=== PATIENT | female | born 1945 | race Caucasian/White ===

== ENCOUNTER 2019-01-19 06:59 | Day surgery (SDC) | payer OTHER ==
--- NOTE | 2019-01-18 10:37 | RAD REPORT ---
EXAM DESCRIPTION: RAD - Chest Pa And Lat (2 Views) - 01/18/2019 10:30 am CLINICAL HISTORY: preop Chest pain. COMPARISON: Chest Single View dated 08/09/2017; CHEST PA AND LAT 2 VIEW dated 12/03/2009; CHEST PA AND LAT 2 VIEW dated 05/02/2009; CHEST PA AND LAT 2 VIEW dated 01/29/2000 FINDINGS: The lungs are clear. The heart is normal in size. No displaced fractures. IMPRESSION: No acute or concerning finding suspected.
[2019-01-18 10:41] LABS: Basophils % 0.8 % (0-1.3); Eosinophils % 2.4 % (0-4.4); Hematocrit 40.5 % (36.0-45.0); Lymphocytes % 29.9 % (15.3-44.8); Monocytes % 7.8 % (3.3-12.3)
[2019-01-18 10:47] LABS: Potassium 3.9 mmol/L (3.5-5.1)
[2019-01-19] MEDS ORDERED: BUPIVACAINE 0.5% PF 10 ML VIAL ONE (07:19)
[2019-01-19] MEDS ORDERED: NA CHLORIDE 0.9% 1,000 ML ONE (07:29)
[2019-01-19] MEDS ORDERED: CEFAZOLIN/SWI 1gm 1 GM/10 ML SYR ONE (07:29)
[2019-01-19] MEDS ORDERED: METHYLENE BLUE 0.5% 10 ML AMP ONE (07:34)
[2019-01-19] MEDS ORDERED: PROPOFOL 200 MG/20 ML VIAL IV ONE (07:43)
[2019-01-19] MEDS ORDERED: FENTANYL CITR 100 MCG/2 ML ONE (07:44)
[2019-01-19] MEDS ORDERED: MIDAZOLAM HCL 2 MG/2 ML INJ ONE (07:44)
[2019-01-19] MEDS ORDERED: LIDOCAINE 2% MPF 5 ML VIAL ONE (07:44)
[2019-01-19] MEDS ORDERED: ONDANSETRON 4 MG/2 ML VIAL ONE (07:45)
--- NOTE | 2019-01-19 08:43 | P.BOP ---
Preoperative diagnosis: left breast mass Postoperative diagnosis: same Primary procedure: Left breast lumpectomy Pocket Setter: YASMANY SOTO Estimated blood loss: <10cc Specimen: mass Findings: palpable left breast mass Anesthesia: General Complications: None Transferred to: Recovery Room Condition: Good
[2019-01-19 09:42] VITALS: TEMP 96.8
[2019-01-19 10:06] VITALS: BP 109/48; O2SAT 97
--- NOTE | 2019-01-19 23:07 | DS ---
Date of Discharge: 01/19/2019 Diagnosis: Left breast mass. Procedure: Left breast lumpectomy. Disposition: Home. Activity: As tolerated. No heavy lifting. Followup: Follow up in my office in 1 week. Call for appointment [phone]. Keep area dry for 48 ho urs, then may shower. Keep Steri-Strips intact. Use breast support. Medications: Ultracet q.4 hours p.r.n. pain and Bactrim DS p.o. b.i.d. ARAM/ROMEO Voice ID: [id number] Report ID: [id number]
--- NOTE | 2019-01-19 23:07 | OP ---
Date of Procedure: 01/19/2019 Surgeon: Raphael Garcia MD Counterintelligence Agent: Katie Whaley. Preoperative Diagnosis: Left breast mass. Postoperative Diagnosis: Left breast mass. Procedure: Left breast lumpectomy. Anesthesia: General plus local. Indications: This is the case of a 73-year-old patient, comes to us with a palpable tender left caleb st mass. The benefits, alternatives, and risks of excision fully explained which include but are not limited to infection, bleeding, damage to adjacent structures, anesthesia complication, nonhealing w ound, DC, and even . She also understands this may not relieve the symptoms, she might need mor e than one surgical intervention. She was advised once again, the frequent examination, frequent pankaj mograms, and also followup for the biopsy in our office. She understood and signed a consent. The a anny of concern was marked by me and the patient in the holding room. Description Of Procedure: The patient was brought to the operating room, placed in supine position. Anesthesia was done without complication. Breast was prepped and draped in a sterile fashion. A ti me-out was called. A wedge incision was made in the skin to include part of the skin and then all th e way down to breast tissue. Mass was removed. The area was irrigated. Hemostasis obtained. Then, we closed this with a chromic and PDS. Steri-Strip placed over the area. Sponge count and instrume nt counts were correct. The patient tolerated the procedure well. The patient was sent to recovery in stable condition. ARAM/ROMEO Voice ID: [id number] Report ID: [id number]
== END 2019-01-19 10:09 | disposition home or self-care (01) ==
LOC: OR 06:59
PROVIDERS: ATTEND Surgery
PROC: 0HBU0ZZ Excision of Left Breast, Open Approach (ICD-10-PCS; principal; 2019-01-19 08:15)
DX: N60.02 Solitary cyst of left breast (principal); E11.9 Type 2 diabetes mellitus without complications; I10 Essential (primary) hypertension; I25.2 Old myocardial infarction; Z79.84 Long term (current) use of oral hypoglycemic drugs; Z79.82 Long term (current) use of aspirin; Z79.899 Other long term (current) drug therapy
CPT/HCPCS: 19120; 85025; 80048; 36415; 82962 ×2; 88304; 71046; J2704; J2250; J3010; J0690; J7030; J2405; 88305

== ENCOUNTER → 2019-04-19 | Day surgery (SDC) | payer OTHER ==
--- NOTE | 2019-04-19 11:54 | RAD REPORT ---
EXAM DESCRIPTION: US - Follow Up [facility] - 04/19/2019 10:12 am CLINICAL HISTORY: Abnormal ultrasound, small mass periareolar left breast pending biopsy COMPARISON: Sonography study March 31, 2019, mammogram March 10, 2019 FINDINGS: The patient presented for ultrasound-guided biopsy of a 4 mm nodular focus in the periareo lar left breast detailed on the March 31 examination. Preliminary imaging for today's procedure pe rformed by both the technologist and the interpreting radiologist failed to identify a clear correlat e matching the March 31 study. The patient has several cysts in the left breast and prominent duct s in the periareolar region. On today's examination no mass was identified that was felt to be suffic iently worrisome to warrant biopsy at this time. Rather than risk possible false-negative procedure, the biopsy was canceled. Today's findings were di scussed at length with the patient. Recommendation would be to undergo mammography and sonography in 6 months to re-evaluate the left breast findings. The patient was in agreement with this recommendati on. IMPRESSION: 1. Left breast biopsy procedure was canceled. On today's sonographic evaluation, the are a of concern detailed March 31 could not be reproduced and no other suspicious finding could be id entified. 2. Recommendation for the patient would be to undergo diagnostic mammography and sonography of the le ft breast in 6 months. BI-RAD: Category 3 probably benign six-month follow-up ResultCode: PB6
== END | disposition home or self-care (01) ==
LOC: DS 09:20
PROVIDERS: ATTEND Surgery
DX: N63.21 Unspecified lump in the left breast, upper outer quadrant (principal); Z53.9 Procedure and treatment not carried out, unspecified reason
CPT/HCPCS: 76642

== ENCOUNTER 2020-03-27 09:21 | Emergency (ER) | payer OTHER ==
--- OUTSIDE RECORDS SUMMARY | 2020-03-27 10:11 | XMS REPORT | Continuity of Care Document ---
:1945 Author Organization [facility] Address [address] [place] [address] [address] [place] [address] Care Team Providers Name Role Phone Unavailable Unavailable Unavailable Problems This patient has no known problems. Allergies, Adverse Reactions, Alerts This patient has no known allergies or adverse reactions. Social History Smoking Status Start Date Stop Date Source Never Smoker [facility] Medications Ordered Filled Start Stop Current Ordering Indication Dosage Frequency Signature Comments Components Source Medication Medication Date Date Medication? Clinician (SIG) Name Name clopidogrel clopidogrel No clopidogre [facility] 75 mg 75 mg l 75 mg da tablet tablet tablet Medical Group fluticasone fluticasone No fluticason [facility] propionate propionate e da 50 50 propionate Medical mcg/actuati mcg/actuati 50 G roup on nasal on nasal mcg/actuat spray,suspe spray,suspe ion nasal nsion nsion spray,susp ension Fluzone Fluzone No Fluzone [facility] High-Dose High-Dose High-Dose da 2017-2018 Medical (PF) 180 (PF) 180 (PF) 180 Migue up mcg/0.5 mL mcg/0.5 mL mcg/0.5 mL intramuscul intramuscul intramuscu ar syringe ar syringe lar syringe Fluzone Fluzone No Fluzone [facility] High-Dose High-Dose High-Dose da Medica l (PF) 180 (PF) 180 (PF) 180 Migue up mcg/0.5 mL mcg/0.5 mL mcg/0.5 mL intramuscul intramuscul intramuscu ar syringe ar syringe lar syringe folic acid folic acid No 1 Q1D folic acid [facility] 400 mcg 400 mcg 400 mcg da tablet Take tablet Take tablet Medical 1 tablet 1 tablet Take 1 Group every day every day tablet by oral by oral every day route. route. by oral route. glimepiride glimepiride No glimepirid [facility] 1 mg tablet 1 mg tablet e 1 mg da tablet Medical Group iron 28 iron 28 No iron 28 [facility] mg-Take 1 mg-Take 1 mg-Take 1 da tablet PO tablet PO tablet PO Medical BID daily BID daily BID daily Group Janumet XR Janumet XR No Janumet XR [facility] 100 100 100 da mg-1,000 mg mg-1,000 mg mg-1,000 Medical tablet,exte tablet,exte mg G roup nded nded tablet,ext release release ended release Jardiance Jardiance No Jardiance [facility] 25 mg 25 mg 25 mg da tablet tablet tablet Medical Group L-Lysine L-Lysine No L-Lysine [facility] 500 mg 500 mg 500 mg da tablet Take tablet Take tablet Medical 1 tablet PO 1 tablet PO Take 1 Group 3 times a 3 times a tablet PO week week 3 times a week levothyroxi levothyroxi No levothyrox [facility] ne 125 mcg ne 125 mcg ine 125 da tablet tablet mcg tablet Medic al Group lorazepam lorazepam No 1 BID lorazepam [facility] 0.5 mg 0.5 mg 0.5 mg da tablet Take tablet Take tablet Medical 1 tablet 1 tablet Take 1 Group twice a day twice a day tablet by oral by oral twice a route for route for day by 14 days. 14 days. oral route for 14 days. metoprolol metoprolol No metoprolol [facility] succinate succinate succinate da ER 50 mg ER 50 mg ER 50 mg Med ical tablet,exte tablet,exte tablet,ext Group nded nded ended release 24 release 24 release 24 hr hr hr niacin 500 niacin 500 No 1 Q1D niacin 500 [facility] mg tablet mg tablet mg tablet da Take 1 Take 1 Take 1 Medical tablet tablet tablet Group every day every day every day by oral by oral by oral route. route. route. pantoprazol pantoprazol No pantoprazo [facility] e 20 mg e 20 mg le 20 mg da tablet,bria tablet,bria tablet,del Medical yed release yed release ayed G roup release ramipril 10 ramipril 10 No ramipril [facility] mg capsule mg capsule 10 mg da capsule Medical Group repaglinide repaglinide No repaglinid [facility] 2 mg tablet 2 mg tablet e 2 mg da tablet Medical Group Restasis Restasis No Restasis [facility] 0.05 % eye 0.05 % eye 0.05 % eye da drops in a drops in a drops in a Medical dropperette dropperette dropperett Group e rosuvastati rosuvastati No rosuvastat [facility] n 40 mg n 40 mg in 40 mg da tablet tablet tablet Medical Group Super B Super B No Super B [facility] Complex-Vit Complex-Vit Complex-Vi da lares C take lares C take tamin C Medical 1 tablet PO 1 tablet PO take 1 Group daily daily tablet PO daily Vital Signs Vital Name Observation Time Observation Value Comments Source BP Diastolic 2019-05-26 00:00:00 73 [facility]Hg[facility] Height 2019-05-26 00:00:00 67 [in_i] [facility] BMI (Body Mass 2019-05-26 00:00:00 24.5 kg/m2 [facility]) Group BP Systolic 2019-05-26 00:00:00 160 mm[Hg] [facility] Body Weight 2019-05-26 00:00:00 156.6 [facility]lb_av[facility] Procedures Procedure Date / Time Performing Clinician Source Performed TYMPANOMETRY 2019-05-26 00:00:00 [facility] Pl[facility] of Stent [facility] Procedure on Back [facility] U[facility] Ch[facility]cyst[facility] Thyroidectomy [facility] Plan of Care Planned Activity Planned Date Details Comments Source Instructions [facility] Encounters Start End Encounter Admission Attending Care Care Encounter Source Date/Time Date/Time Type Type Clinicians Facility Department ID 2019-05-26 2019-05-26 Valarie SCOTT [place] - [id number] [facility] 00:00:00 00:00:00 MD Saul: [address] Group [facility] - [address], Otolaryngol [place], [facility] [place] [address] , Ph. Results Test Description Test Time Test Comments Results Result Comments Source tympanogram 2019-05-26 14:04:56 Test Item Value Reference Range Interpretation Comme nts Right (test code = Right) Type C Peak is on Left Left (test code = Left) Type C Peak is on Left [facility]
[2020-03-27 10:29] LABS: Absolute Lymphocytes (CBC) 2.6 K/uL (0.7-4.9); Basophils % 0.4 % (0-1.3); Hematocrit 41.9 % (36.0-45.0); Lymphocytes % 29.3 % (15.3-44.8); MPV 10.6 fL (7.6-11.3); RBC Red Blood Cell Count 4.94 M/uL (3.86-4.86)
[2020-03-27 10:37] LABS: Albumin 3.5 g/dL (3.4-5.0); Bilirubin Direct 0.1 mg/dL (0-0.2); Bilirubin Total 0.4 mg/dL (0.2-1.0); Protein, Total 7.5 g/dL (6.4-8.2); Troponin (Emerg Dept Use Only) 0.04 ng/mL (0.0-0.045)
[2020-03-27] MEDS ORDERED: NA CHLORIDE 0.9% 500 ML ONE (10:43)
--- NOTE | 2020-03-27 11:21 | RAD REPORT ---
EXAM DESCRIPTION: CT - Abdomen Pelvis W Contrast - 03/27/2020 11:08 am CLINICAL HISTORY: left sided abdominal pain COMPARISON: No comparisons TECHNIQUE: Biphasic, helical CT imaging of the abdomen and pelvis was performed following 100 ml non -ionic IV contrast. No oral contrast administered. All CT scans are performed using dose optimization technique as appropriate and may include automated exposure control or mA/KV adjustment according to patient size. FINDINGS: Lung pro are detailed in separate report. The liver, spleen, and pancreas show no suspicious findings. Cholecystectomy clips are present. Bilia ry tree within normal limits. Benign-appearing cysts are seen in the hepatic parenchyma. No worrisome hepatic parenchymal process. Symmetric renal function is seen with no hydronephrosis or suspicious renal mass. No pyelonephritis o r acute parenchymal process. Small renal cysts are present. No obstructing or nonobstructing calculi. Partially filled urinary bladder shows no suspicious findings. No adrenal abnormalities. Uterus is absent. Ovaries are absent or atrophic. Patient has significant pelvic floor laxity. Minima l stranding is seen adjacent to the tissues of the perineum around the distal most rectum. In the set ting of pelvic floor laxity or prolapse, CT imaging in this region is limited. No gastric dilatation or wall thickening. Moderate stool volume throughout most of the colon. Rare di verticula seen. No active colon process identifiable. No free air, free fluid or inflammatory strand ing. No significant hernia, mass or bulky lymphadenopathy. Patient has a very small incidental umbil ical fat only hernia. Bony degenerative changes are present most notable at the L5-S1 disc level. No acute or destructive f inding. IMPRESSION: No mass or other emergent CT abdomen or pelvis finding. Patient has pelvic floor laxity. There is some stranding along the perineum and perianal region. CT i maging in this region is limited in the setting of laxity.
--- NOTE | 2020-03-27 11:23 | RAD REPORT ---
EXAM DESCRIPTION: CT - Chest For Pe Angio - 03/27/2020 11:08 am CLINICAL HISTORY: syncope, chest pain, abdominal pain COMPARISON: No comparisons TECHNIQUE: Dynamically enhanced 3 mm thick images of the chest were obtained during administration o f approximately 150mL Isovue 370 IV contrast. Coronal and oblique MIP reconstruction images were gene rated and reviewed. Exam utilizes a protocol to evaluate the pulmonary arterial tree. All CT scans are performed using dose optimization technique as appropriate and may include automated exposure control or mA/KV adjustment according to patient size. FINDINGS: No pulmonary emboli are identified. The aorta as imaged shows no acute or suspicious finding. No pericardial thickening or effusion. No focal mass or consolidation. Minimal atelectasis changes are present along the posterior aspects o f each lung field. No convincing evidence for an acute infiltrative process. No pleural effusion or p leural thickening. No mediastinal or hilar suspicious masses. No chest wall masses or abnormal axillary lymphadenopathy. Mild thoracic spine degenerative change present. No acute or destructive component. IMPRESSION: No pulmonary emboli identified. No other significant or suspicious findings.
[2020-03-27] MEDS ORDERED: NA CHLORIDE 0.9% 250 ML ONE (12:13)
[2020-03-27 13:02] LABS: Urine Blood TRACE (NEG); Urine Glucose 2+ (NEG); Urine Protein 1+ (NEG); Urine pH 5.5 (5.0-7.0)
--- NOTE | 2020-03-27 13:25 | ER ---
Nurse's Notes [facility] Name: Sherice Ward Age: 74 yrs Sex: Female : 1945 Arrival Date: 03/27/2020 Time: 09:24 Bed 8 Private MD: Diagnosis: Lower abdominal pain, unspecified;Syncope and collapse Presentation: 03/27 09:30 Chief complaint: Patient states: lower abd pain that began 2 months ago. Pt states "my aa5 abdomen hurts more when I try to have a bowel movement". Pt reports last BM was yesterday after enema. Pt denies nausea/vomiting. Pt states "I passed out from the pain on Thursday and since then I've been lightheaded". 09:30 Coronavirus screen: Client denies travel out of the [place] in the last 14 days. At this aa5 time, the client does not indicate any symptoms associated with coronavirus-19. Ebola Screen: Patient negative for fever greater than or equal to 101.5 degrees Fahrenheit, and additional compatible Ebola Virus Disease symptoms. Initial Sepsis Screen: Does the patient meet any 2 criteria? No. Patient's initial sepsis screen is negative. Does the patient have a suspected source of infection? No. Patient's initial sepsis screen is negative. Risk Assessment: Do you want to hurt yourself or someone else? Patient reports no desire to harm self or others. Onset of symptoms was February 2020. 09:30 Acuity: SHELBY 3 aa5 09:30 Method Of Arrival: Ambulatory aa5 Historical: - Allergies: 09:30 Codeine; aa5 - PMHx: 09:30 Diabetes - NIDDM; High Cholesterol; Hypertension; Hypothyroidism; Myocardial infarction;aa5 - PSHx: 09:30 Heart stents; Cholecystectomy; aa5 - Immunization history:: Adult Immunizations unknown. - Social history:: Smoking status: Patient denies any tobacco usage or history of. Screenin:03 Abuse screen: Denies threats or abuse. Denies injuries from another. Nutritional bp screening: No deficits noted. Tuberculosis screening: No symptoms or risk factors identified. Fall Risk None identified. Assessment: 09:35 General: Appears in no apparent distress. Behavior is calm, cooperative. Pain: rb1 Complains of pain in abdomen Pain began 1 day ago. Aggravated by having a bowel movement. Neuro: Level of Consciousness is awake, alert, obeys commands, Oriented to person, place, time, situation, Reports dizziness, a syncopal episode syncope on Thursday . Cardiovascular: Capillary refill < 3 seconds. Respiratory: Airway is patent Respiratory effort is even, unlabored, Respiratory pattern is regular, symmetrical. GI: Bowel sounds present X 4 quads. Reports last bowel movement was yesterday Patient currently denies nausea, vomiting. : No signs and/or symptoms were reported regarding the genitourinary system. Derm: Skin is pink, warm \\T\\ dry. 10:30 Reassessment: Pt. reported dizziness upon position change during orthostatic blood rb1 pressure. Reports taking Ramipril 10 mg 1 tab at 0745 this morning. She reports that she takes the Ramipril 10 mg 1 tab twice a day. 11:30 Reassessment: Patient appears in no apparent distress at this time. No changes from rb1 previously documented assessment. 12:06 Reassessment: Patient appears in no apparent distress at this time. Patient and/or rb1 family updated on plan of care and expected duration. Pain level reassessed. Patient is alert, oriented x 3, equal unlabored respirations, skin warm/dry/pink. 13:06 Reassessment: Ambulated pt. around pod 1 and back to her room, gait was steady. Pt. rb1 reports that she feels like wobbly. BP 106/46, P 72, 100% on RA, R 20. 13:38 Reassessment: Patient appears in no apparent distress at this time. Patient and/or rb1 family updated on plan of care and expected duration. Pain level reassessed. Patient is alert, oriented x 3, equal unlabored respirations, skin warm/dry/pink. Patient states symptoms have improved. Vital Signs: 09:30 BP 122 / 65; Pulse 76; Resp 16 S; Temp 97.9(O); Pulse Ox 99% on R/A; Weight 69.4 kg aa5 (R); Height 5 ft. 7 in. (170.18 cm) (R); Pain 2/10; 10:22 BP 104 / 48 LA Supine; Pulse 76; Pulse Ox 97% on R/A; rb1 10:24 BP 90 / 53 LA Sitting; Pulse 74; Pulse Ox 99% on R/A; rb1 10:26 BP 77 / 50 Standing; Pulse 80; Pulse Ox 96% on R/A; rb1 10:54 BP 87 / 45; Pulse 66; Resp 17; Pulse Ox 100% ; rb1 11:48 BP 90 / 44; Pulse 63; Resp 18; Pulse Ox 99% ; rb1 12:09 BP 99 / 49; Pulse 71; Resp 19; Pulse Ox 99% on R/A; rb1 13:06 BP 106 / 46; Pulse 72; Resp 20; Pulse Ox 100% on R/A; rb1 13:38 BP 107 / 48; Pulse 61; Resp 18; Pulse Ox 100% ; Pain 0/10; rb1 09:30 Body Mass Index 23.96 (69.40 kg, 170.18 cm) aa5 10:26 Pt. reports dizziness upon position changes. Provider notifed. Received verbal order rb1 for NS 500 ml bolus x once. 100% read back. 10:54 NS 500 ml bolus infusing rb1 ED Course: 09:24 Patient arrived in ED. as 09:25 Yrn Arias PA is PHCP. [facility] 09:25 Devendra Maya MD is Attending Physician. jm 09:30 Arm band placed on. aa5 09:35 Aline Mac, AC is Primary Nurse. rb1 09:48 Triage completed. aa5 10:03 Patient has correct armband on for positive identification. Bed in low position. Call bp light in reach. Side rails up X2. 10:03 Inserted saline lock: 20 gauge in left forearm, using aseptic technique. Blood bp collected. 11:08 CT Abd/Pelvis - IV Contrast Only In Process Unspecified. EDMS 11:08 CT Chest For PE Angio In Process Unspecified. EDMS 13:39 No provider procedures requiring assistance completed. IV discontinued, intact, rb1 bleeding controlled, No redness/swelling at site. Pressure dressing applied. Administered Medications: 10:35 Drug: NS 0.9% 500 ml Route: IV; Rate: bolus; Site: left forearm; rb1 11:17 Follow up: IV Status: Completed infusion rb1 12:06 Drug: NS 0.9% 250 ml Route: IV; Rate: bolus; Site: left forearm; rb1 12:30 Follow up: IV Status: Completed infusion rb1 Outcome: 13:24 Discharge ordered by . jmm 13:39 Discharged to home via wheelchair, with family. rb1 13:39 Condition: stable 13:39 Discharge instructions given to patient, Instructed on discharge instructions, follow up and referral plans. Demonstrated understanding of instructions, follow-up care, Prescriptions given X none 13:48 Patient left the ED. bp Signatures: Dispatcher [employer] EDYrn Jesus PA PA jmm Martinez, Amelia as Calderon, Audri, RN RN aa5 Aline Mac, RN RN rb1 Pedrito Gale RN RN bp
--- NOTE | 2020-03-27 13:25 | EDPHYS ---
Physician Documentation [facility] Name: Sherice Ward Age: 74 yrs Sex: Female : 1945 Arrival Date: 03/27/2020 Time: 09:24 Bed 8 Private MD: ED Physician Devendra Maya HPI: 03/27 10:15 This 74 yrs old Female presents to ER via Ambulatory with complaints of jmm Abdominal Pain, Near Syncope. 10:15 The patient presents with abdominal pain. Onset: The symptoms/episode began/occurred jmm gradually, 6 day(s) ago. The symptoms do not radiate. Associated signs and symptoms: Pertinent negatives: nausea and vomiting, constipation, diarrhea, fever. The symptoms are described as achy. This is a 74 year old female with a history of dm, that presents to the ED with complaints of left lower abdominal pain which has been ongoing for the past 6 days. Pain is worsened with BM. Patient states having s syncopal episodes 4 days ago while attempting a bowel movement due to pain. . Historical: - Allergies: 09:30 Codeine; aa5 - PMHx: 09:30 Diabetes - NIDDM; High Cholesterol; Hypertension; Hypothyroidism; Myocardial infarction;aa5 - PSHx: 09:30 Heart stents; Cholecystectomy; aa5 - Immunization history:: Adult Immunizations unknown. - Social history:: Smoking status: Patient denies any tobacco usage or history of. ROS: 10:15 Constitutional: Negative for fever, chills, and weight loss, Cardiovascular: Negative jmm for chest pain, palpitations, and edema, Respiratory: Negative for shortness of breath, cough, wheezing, and pleuritic chest pain. 10:15 Abdomen/GI: Positive for abdominal pain. 10:15 Neuro: Positive for syncope. 10:15 All other systems are negative. Exam: 10:15 Constitutional: This is a well developed, well nourished patient who is awake, alert, jmm and in no acute distress. Head/Face: atraumatic. Eyes: EOMI, no conjunctival erythema appreciated ENT: Moist Mucus Membranes Neck: Trachea midline, Supple Chest/axilla: Normal chest wall appearance and motion. Cardiovascular: Regular rate and rhythm. No edema appreciated Respiratory: Normal respirations, no respiratory distress appreciated 10:15 Back: Normal ROM Skin: General appearance color normal MS/ Extremity: Moves all extremities, no obvious deformities appreciated, no edema noted to the lower extremities Neuro: Awake and alert, normal gait Psych: Behavior is normal, Mood is normal, Patient is cooperative and pleasant 10:15 Abdomen/GI: Inspection: abdomen appears normal, Bowel sounds: normal, Palpation: abdomen is soft and non-tender, in all quadrants. Vital Signs: 09:30 BP 122 / 65; Pulse 76; Resp 16 S; Temp 97.9(O); Pulse Ox 99% on R/A; Weight 69.4 kg aa5 (R); Height 5 ft. 7 in. (170.18 cm) (R); Pain 2/10; 10:22 BP 104 / 48 LA Supine; Pulse 76; Pulse Ox 97% on R/A; rb1 10:24 BP 90 / 53 LA Sitting; Pulse 74; Pulse Ox 99% on R/A; rb1 10:26 BP 77 / 50 Standing; Pulse 80; Pulse Ox 96% on R/A; rb1 10:54 BP 87 / 45; Pulse 66; Resp 17; Pulse Ox 100% ; rb1 11:48 BP 90 / 44; Pulse 63; Resp 18; Pulse Ox 99% ; rb1 12:09 BP 99 / 49; Pulse 71; Resp 19; Pulse Ox 99% on R/A; rb1 13:06 BP 106 / 46; Pulse 72; Resp 20; Pulse Ox 100% on R/A; rb1 13:38 BP 107 / 48; Pulse 61; Resp 18; Pulse Ox 100% ; Pain 0/10; rb1 09:30 Body Mass Index 23.96 (69.40 kg, 170.18 cm) aa5 10:26 Pt. reports dizziness upon position changes. Provider notifed. Received verbal order rb1 for NS 500 ml bolus x once. 100% read back. 10:54 NS 500 ml bolus infusing rb1 MDM: 09:49 Patient medically screened. jimenez 13:22 Data reviewed: vital signs, nurses notes. Counseling: I had a detailed discussion with jimenez the patient and/or guardian regarding: the historical points, exam findings, and any diagnostic results supporting the discharge/admit diagnosis, lab results, radiology results, the need for outpatient follow up, to return to the emergency department if symptoms worsen or persist or if there are any questions or concerns that arise at home. ED course: Patient is alert and non toxic in appearance. Labs concerning for some dehydration. CT is negative. Advised to follow up with GI for further evaluation. patient is otherwise given strict return precautions. patient understood and agrees with the plan of care. . 03/27 09:51 Order name: Basic Metabolic Panel; Complete Time: 10:38 [facility] 03/27 09:51 Order name: CBC with Diff; Complete Time: 10:31 [facility] 03/27 09:51 Order name: Hepatic Function; Complete Time: 10:38 [facility] 03/27 09:51 Order name: Lipase; Complete Time: 10:38 [facility] 03/27 09:52 Order name: Troponin (emerg Dept Use Only); Complete Time: 10:38 [facility] 03/27 11:06 Order name: Glucose, Ancillary Testing; Complete Time: 11:08 [facility] 03/27 09:51 Order name: IV Saline Lock; Complete Time: 10:04 [facility] 03/27 09:51 Order name: Labs collected and sent; Complete Time: 10:04 [facility] 03/27 09:51 Order name: Urine Dipstick-Ancillary (obtain specimen); Complete Time: 13:11 [facility] 03/27 10:39 Order name: CT Abd/Pelvis - IV Contrast Only; Complete Time: 11:24 [facility] 03/27 10:39 Order name: CT Chest For PE Angio; Complete Time: 11:24 [facility] 03/27 12:28 Order name: Urine Dipstick--Ancillary (enter results); Complete Time: 13:08 03/27 09:52 Order name: EKG - Nurse/Tech; Complete Time: 10:36 [facility] 03/27 09:53 Order name: Orthostatic Blood Pressure; Complete Time: 10:36 [facility] 03/27 12:29 Order name: Misc. Order: ambulate, recheck BP; Complete Time: 13:11 jm Administered Medications: 10:35 Drug: NS 0.9% 500 ml Route: IV; Rate: bolus; Site: left forearm; rb1 11:17 Follow up: IV Status: Completed infusion rb1 12:06 Drug: NS 0.9% 250 ml Route: IV; Rate: bolus; Site: left forearm; rb1 12:30 Follow up: IV Status: Completed infusion rb1 Disposition: 18:40 Co-signature as Attending Physician, Devendra Maya MD. rn Disposition: 03/27/20 13:24 Discharged to Home. Impression: Lower abdominal pain, unspecified, Syncope and collapse. - Condition is Stable. - Discharge Instructions: Abdominal Pain, Adult, Syncope. - Medication Reconciliation Form, Thank You Letter, Antibiotic Education, Prescription Opioid Use form. - Follow up: Private Physician; When: 2 - 3 days; Reason: Recheck today's complaints, Continuance of care, Re-evaluation by your physician. Signatures: Dispatcher [employer] EDMS Yrn Arias PA PA jmm Nieto, Roman, MD MD rn Calderon, Audri RN RN aa5 Aline Mac RN RN rb1 Pedrito Gale RN RN bp Corrections: (The following items were deleted from the chart) 13:48 13:24 03/27/2020 13:24 Discharged to Home. Impression: Lower abdominal pain, bp unspecified; Syncope and collapse. Condition is Stable. Forms are Medication Reconciliation Form, Thank You Letter, Antibiotic Education, Prescription Opioid Use. Follow up: Private Physician; When: 2 - 3 days; Reason: Recheck today's complaints, Continuance of care, Re-evaluation by your physician. jimenez
--- NOTE | 2020-03-28 12:27 | EKG ---
Test Date: 2020-03-27 Test Time: 10:24:04 Ethologist: ROGER MEASUREMENT RESULTS: Intervals: Rate: 69 CA: 190 QRSD: 80 QT: 374 QTc: 400 [place]: P: 43 CA: 190 QRS: 19 T: 29 INTERPRETIVE STATEMENTS: Sinus rhythm with marked sinus arrhythmia Low voltage QRS Cannot rule out Anteroseptal infarct, age undetermined Abnormal ECG Compared to ECG 08/09/2017 05:16:58 Low QRS voltage now present Myocardial infarct finding still present Electronically Signed On 03-28-20 12:23:03 CDT by Satya Coe
[2020-03-29 19:48] VITALS: TEMP 97.9
[2020-03-29 19:56] VITALS: O2SAT 100
[2020-03-29 19:58] VITALS: BP 107/48
== END 2020-03-27 13:48 | disposition home or self-care (01) ==
LOC: ER 09:21
DX: R55 Syncope and collapse (principal); R10.30 Lower abdominal pain, unspecified; Z88.6 Allergy status to analgesic agent
CPT/HCPCS: 96365; 96361; 93005; 85025; 80048; 36415; 82947; 80076; 81003; 84484; 83690; 71275; 74177; 99284; Q9967; J7050; J7040

== ENCOUNTER 2022-01-26 11:23 | Emergency (ER) | payer OTHER ==
[2022-01-26 11:57] LABS: Hematocrit 37.6 % (36.0-45.0); Lymphocytes % 19.5 % (15.3-44.8); MCV 86.1 fL (80-100); MPV 9.7 fL (7.6-11.3); RBC Red Blood Cell Count 4.37 M/uL (3.86-4.86)
[2022-01-26] MEDS ORDERED: NA CHLORIDE 0.9% 500 ML ONE (11:57)
[2022-01-26 12:14] LABS: Albumin 3.4 g/dL (3.4-5.0); Bilirubin Total 0.2 mg/dL (0.2-1.0); Potassium 3.7 mmol/L (3.5-5.1); Protein, Total 6.7 g/dL (6.4-8.2)
--- NOTE | 2022-01-26 13:04 | RAD REPORT ---
EXAM DESCRIPTION: CT - Abdomen Pelvis W Contrast - 01/26/2022 12:47 pm CLINICAL HISTORY: Abdominal pain, acute, nonlocalized COMPARISON: Abdomen Pelvis W Contrast dated 03/27/2020 TECHNIQUE: Biphasic, helical CT imaging of the abdomen and pelvis was performed following 100 ml non -ionic IV contrast. No oral contrast administered. All CT scans are performed using dose optimization technique as appropriate and may include automated exposure control or mA/KV adjustment according to patient size. FINDINGS: No suspicious findings in the lung bases. The liver, spleen, and pancreas show no suspicious findings. Multiple hepatic cysts are present match ing the 2019 study. Cholecystectomy clips are present. No biliary tree dilatation. Symmetric renal function is seen with no hydronephrosis or suspicious renal mass. No pyelonephritis o r acute parenchymal process. Bilateral renal fullness is present believed to be normal variant. This matches prior imaging. No obstructing or nonobstructing ureteral calculi identified. No adrenal abnor malities. No bladder abnormality seen. Uterus is absent or atrophic. Ovaries are absent or atrophic. No adnexal mass. No acute stomach or small bowel finding. No appendicitis findings are seen. There is a large stool vo lume filling and distending the tortuous sigmoid colon and rectum. Moderate stool volume fills but do es not distend the remainder of the colon. No free air, free fluid or inflammatory stranding. No hernia, mass or bulky lymphadenopathy. No suspicious bony findings. IMPRESSION: Contrast enhanced CT abdomen and pelvis showing no acute or emergent finding. Moderate stool volume fills the colon from cecum through descending colon with large stool volume dis tending the tortuous sigmoid colon and the rectum. No colon wall thickening, mass or acute colon find ing identifiable.
--- NOTE | 2022-01-26 13:24 | ER ---
Nurse's Notes [facility] Name: Sherice Ward Age: 76 yrs Sex: Female : 1945 Arrival Date: 01/26/2022 Time: 11:24 Bed 4 Private MD: Diagnosis: Abdominal pain, Generalized;Lower abdominal pain, unspecified;Constipation;Rectal Bleeding Presentation: 01/26 11:26 Chief complaint: Patient states: lower abdominal pain and dark stool. Coronavirus wolfe screen: Vaccine status: Patient reports receiving the 2nd dose of the covid vaccine. Ebola Screen: Patient denies travel to an Ebola-affected area in the 21 days before illness onset. Initial Sepsis Screen: Does the patient meet any 2 criteria? No. Patient's initial sepsis screen is negative. Does the patient have a suspected source of infection? No. Patient's initial sepsis screen is negative. Risk Assessment: Do you want to hurt yourself or someone else? Patient reports no desire to harm self or others. Onset of symptoms was January 26, 2022. 11:26 Method Of Arrival: EMS: [facility] wolfe 11:26 Acuity: SHELBY 3 wolfe Triage Assessment: 11:26 General: Appears in no apparent distress. Behavior is calm, cooperative. Pain: wolfe Complains of pain in right lower quadrant and left lower quadrant. Historical: - Allergies: 11:25 Codeine; ss - Home Meds: 11:28 aspirin 81 mg Oral chew 1 tab once daily [Active]; Citracal Oral nightly [Active]; Iron wolfe CR Oral nightly [Active]; Janumet XR 50-1,000 mg Oral TM24 1 tab nightly [Active]; levothyroxine 125 mcg tab 0.5 tab once daily [Active]; magnesium oxide 400 mg Oral tab daily [Active]; metoprolol tartrate 25 mg Oral tab 1 tab 2 times per day [Active]; multivitamin Oral tab daily [Active]; Niacin Oral nightly [Active]; omeprazole 40 mg Oral cpDR 1 cap Every other day [Active]; Plavix 75 mg Oral tab 1 tab once daily [Active]; Ramipril Oral 1 cap nightly [Active]; rosuvastatin 40 mg Oral tab 0.5 tab nightly [Active]; - PMHx: 11:25 Diabetes - NIDDM; High Cholesterol; Hypertension; Hypothyroidism; Myocardial infarction;ss - Immunization history:: Adult Immunizations up to date. - Social history:: Smoking status: Patient denies any tobacco usage or history of. Screenin:27 Abuse screen: Denies threats or abuse. Denies injuries from another. Nutritional wolfe screening: No deficits noted. Tuberculosis screening: No symptoms or risk factors identified. Fall Risk None identified. Assessment: 11:27 General: Appears in no apparent distress. Behavior is calm, cooperative. Pain: wolfe Complains of pain in right lower quadrant and left lower quadrant. GI: Reports bloody stool, Pain is 7 out of 10 on a pain scale. Vital Signs: 11:25 BP 105 / 44; Pulse 76; Temp 99.5(O); ss 13:10 Pulse 71; Resp 16; Pulse Ox 99% on R/A; ss 14:16 BP 102 / 48; Pulse 74; Resp 16; Pulse Ox 97% on R/A; wolfe ED Course: 11:24 Patient arrived in ED. ss 11:25 Marily Cunningham, RN is Primary Nurse. wolfe 11:26 Arm band placed on. wolfe 11:27 Triage completed. wolfe 11:27 Patient has correct armband on for positive identification. Bed in low position. wolfe 11:27 No provider procedures requiring assistance completed. Maintain EMS IV. Dressing wolfe intact. Gauge \T\ site: 20g RAC. 11:28 Boubacar Gonzalez MD is Attending Physician. kdr 11:28 Call light in reach. Side rails up X 1. Door closed. Noise minimized. Warm blanket mb7 given. 12:49 CT Abd/Pelvis - IV Contrast Only In Process Unspecified. EDMS 14:52 IV discontinued, intact, Pressure dressing applied. wolfe Administered Medications: 11:51 Drug: NS 0.9% 500 ml Route: IV; Rate: bolus; Site: right forearm; wolfe 13:41 Drug: Magnesium Citrate Liquid 300 ml Route: PO; wolfe 13:41 Follow up: Response: No adverse reaction wolfe 13:41 Drug: Dulcolax (bisacodyl) Delayed Release Tablet 5 mg Route: PO; wolfe 13:41 Follow up: Response: No adverse reaction wolfe Medication: 11:27 VIS not applicable for this client. wolfe Outcome: 13:24 Discharge ordered by . kdr 14:52 Discharged to home via wheelchair. wolfe 14:52 Condition: good 14:52 Discharge instructions given to patient, family, Prescriptions given X 2. 14:52 Patient left the ED. wolfe Signatures: Dispatcher [employer] Boubacar Oh MD MD kdr Smirch, Shelby, RN RN ss Breneman, Mary 7 Sarah-Marily Moss RN RN ha
--- NOTE | 2022-01-26 13:25 | EDPHYS ---
Physician Documentation [facility] Name: Sherice Ward Age: 76 yrs Sex: Female : 1945 Arrival Date: 01/26/2022 Time: 11:24 Bed 4 Private MD: ED Physician Boubacar Gonzalez HPI: 01/26 15:24 This 76 yrs old Female presents to ER via EMS with complaints of Black/Tarry Stools. kdr 15:24 The patient presents to the emergency department with rectal bleeding, a small amount, kdr bright red blood with bowel movement, dark red blood with bowel movement melena. Onset: The symptoms/episode began/occurred gradually, 10 day(s) ago. Abdominal pain: described as achy, crampy, intermittent, vague,\E\ waxing and waning. Modifying factors: The symptoms are alleviated by nothing, the symptoms are aggravated by nothing. Associated signs and symptoms: The patient has no apparent associated signs or symptoms. Severity of symptoms: At their worst the symptoms were mild in the emergency department the symptoms are unchanged. The patient has not experienced similar symptoms in the past. The patient has not recently seen a physician. Historical: - Allergies: 11:25 Codeine; ss - Home Meds: 11:28 aspirin 81 mg Oral chew 1 tab once daily [Active]; Citracal Oral nightly [Active]; Iron wolfe CR Oral nightly [Active]; Janumet XR 50-1,000 mg Oral TM24 1 tab nightly [Active]; levothyroxine 125 mcg tab 0.5 tab once daily [Active]; magnesium oxide 400 mg Oral tab daily [Active]; metoprolol tartrate 25 mg Oral tab 1 tab 2 times per day [Active]; multivitamin Oral tab daily [Active]; Niacin Oral nightly [Active]; omeprazole 40 mg Oral cpDR 1 cap Every other day [Active]; Plavix 75 mg Oral tab 1 tab once daily [Active]; Ramipril Oral 1 cap nightly [Active]; rosuvastatin 40 mg Oral tab 0.5 tab nightly [Active]; - PMHx: 11:25 Diabetes - NIDDM; High Cholesterol; Hypertension; Hypothyroidism; Myocardial infarction;ss - Immunization history:: Adult Immunizations up to date. - Social history:: Smoking status: Patient denies any tobacco usage or history of. ROS: 15:24 Constitutional: Negative for fever, chills, and weight loss, Eyes: Negative for injury, kdr pain, redness, and discharge, ENT: Negative for injury, pain, and discharge, Neck: Negative for injury, pain, and swelling, Cardiovascular: Negative for chest pain, palpitations, and edema, Respiratory: Negative for shortness of breath, cough, wheezing, and pleuritic chest pain, Back: Negative for injury and pain, : Negative for injury, bleeding, discharge, and swelling, MS/Extremity: Negative for injury and deformity, Skin: Negative for injury, rash, and discoloration, Neuro: Negative for headache, weakness, numbness, tingling, and seizure activity. Psych: Negative for depression, anxiety, suicide ideation, homicidal ideation, and hallucinations, Allergy/Immunology: Negative for hives, rash, and allergies, Endocrine: Negative for neck swelling, polydipsia, polyuria, polyphagia, and marked weight changes, Hematologic/Lymphatic: Negative for swollen nodes, abnormal bleeding, and unusual bruising. 15:24 Abdomen/GI: Positive for abdominal pain, nausea, abdominal cramps, black/tarry stool, rectal bleeding. Exam: 15:24 Constitutional: This is a well developed, well nourished patient who is awake, alert, kdr and in no acute distress. Head/Face: Normocephalic, atraumatic. Eyes: Pupils equal round and reactive to light, extra-ocular motions intact. Lids and lashes normal. Conjunctiva and sclera are non-icteric and not injected. Cornea within normal limits. Periorbital areas with no swelling, redness, or edema. Neck: Trachea midline, no thyromegaly or masses palpated, and no cervical lymphadenopathy. Supple, full range of motion without nuchal rigidity, or vertebral point tenderness. No Meningismus. Chest/axilla: Normal chest wall appearance and motion. Nontender with no deformity. No lesions are appreciated. Cardiovascular: Regular rate and rhythm with a normal S1 and S2. No gallops, murmurs, or rubs. Normal PMI, no JVD. No pulse deficits. Respiratory: Lungs have equal breath sounds bilaterally, clear to auscultation and percussion. No rales, rhonchi or wheezes noted. No increased work of breathing, no retractions or nasal flaring. Back: No spinal tenderness. No costovertebral tenderness. Full range of motion. Skin: Warm, dry with normal turgor. Normal color with no rashes, no lesions, and no evidence of cellulitis. MS/ Extremity: Pulses equal, no cyanosis. Neurovascular intact. Full, normal range of motion. Neuro: Awake and alert, GCS 15, oriented to person, place, time, and situation. Cranial nerves II-XII grossly intact. Motor strength 5/5 in all extremities. Sensory grossly intact. Cerebellar exam normal. Normal gait. Psych: Awake, alert, with orientation to person, place and time. Behavior, mood, and affect are within normal limits. 15:24 Abdomen/GI: Inspection: obese Bowel sounds: active, diminished, in all quadrants, Palpation: soft, mild abdominal tenderness, Rectal exam: rectal tone normal, Stool: guaiac positive, hemorrhoid(s), external, without bleeding. 15:24 Abdomen/GI: Indicators: McBurney's point is not tender, Echavarria's sign is negative. kdr Vital Signs: 11:25 BP 105 / 44; Pulse 76; Temp 99.5(O); ss 13:10 Pulse 71; Resp 16; Pulse Ox 99% on R/A; ss 14:16 BP 102 / 48; Pulse 74; Resp 16; Pulse Ox 97% on R/A; wolfe MDM: 13:24 Patient medically screened. kdr 15:34 Data reviewed: vital signs, nurses notes, lab test result(s), radiologic studies. kdr Counseling: I had a detailed discussion with the patient and/or guardian regarding: the historical points, exam findings, and any diagnostic results supporting the discharge/admit diagnosis, lab results. 01/26 11:30 Order name: CBC with Diff; Complete Time: 13:05 kdr 01/26 11:30 Order name: CMP; Complete Time: 13:05 kdr 01/26 11:30 Order name: Lipase; Complete Time: 13:05 kdr 01/26 11:30 Order name: CT Abd/Pelvis - IV Contrast Only; Complete Time: 13:05 kdr 01/26 11:30 Order name: Type And Screen; Complete Time: 13:05 kdr 01/26 11:56 Order name: Occult Blood--Ancillary eb 01/26 11:30 Order name: IV Saline Lock; Complete Time: 11:51 kdr 01/26 11:30 Order name: Labs collected and sent; Complete Time: kdr Administered Medications: :51 Drug: NS 0.9% 500 ml Route: IV; Rate: bolus; Site: right forearm; wolfe 13:41 Drug: Magnesium Citrate Liquid 300 ml Route: PO; wolfe 13:41 Follow up: Response: No adverse reaction wolfe 13:41 Drug: Dulcolax (bisacodyl) Delayed Release Tablet 5 mg Route: PO; wolfe 13:41 Follow up: Response: No adverse reaction wolfe Disposition Summary: 01/26/22 13:24 Discharge Ordered Location: Home kdr Problem: new kdr Symptoms: are unchanged kdr Condition: Fair kdr Diagnosis - Abdominal pain, Generalized kdr - Lower abdominal pain, unspecified kdr - Constipation kdr - Rectal Bleeding kdr Followup: kdr - With: Private Physician - When: 2 - 3 days - Reason: If symptoms return, Further diagnostic work-up, Recheck today's complaints, Continuance of care, Re-evaluation by your physician Discharge Instructions: - Discharge Summary Sheet kdr - Constipation, Adult, [id number] kdr - Abdominal Pain, Adult, [id number] kdr Forms: - Medication Reconciliation Form kdr - Thank You Letter kdr Prescriptions: - Dulcolax (bisacodyl) 5 mg Oral tablet,delayed release (DR/EC) - take 2 tablet by ORAL route once daily As needed; 20 tablet; Refills: 0, kdr Product Selection Permitted - magnesium citrate - take 1 bottle by ORAL route 2-3 times daily As needed; 2 bottle; Refills: 0, kdr Product Selection Permitted Signatures: Dispatcher [employer] Boubacar Oh MD MD [facility] Caroline Gonzalez RN RN Marily Cunningham RN RN
[2022-01-26] MEDS ORDERED: MAGNESIUM CITRATE 300 ML BOT ONE (13:38)
[2022-01-26] MEDS ORDERED: BISACODYL E.C. 5 MG TAB PO ONE (13:38)
[2022-01-26 15:11] VITALS: TEMP 99.5
[2022-01-26 15:14] VITALS: BP 102/48; O2SAT 97
== END 2022-01-26 14:52 | disposition home or self-care (01) ==
LOC: ER 11:23
DX: K62.5 Hemorrhage of anus and rectum (principal); K59.00 Constipation, unspecified; R10.84 Generalized abdominal pain; R10.30 Lower abdominal pain, unspecified; E11.9 Type 2 diabetes mellitus without complications; I10 Essential (primary) hypertension; I25.2 Old myocardial infarction; E78.00 Pure hypercholesterolemia, unspecified; E03.9 Hypothyroidism, unspecified; Z79.01 Long term (current) use of anticoagulants; Z79.82 Long term (current) use of aspirin; Z88.5 Allergy status to narcotic agent
CPT/HCPCS: 85025; 36415; 86900; 86850; 86901; 82272; 83690; 80053; 74177; 99284; Q9967; J7040

== ENCOUNTER 2022-09-26 18:55 | Emergency (ER) | payer OTHER ==
--- OUTSIDE RECORDS SUMMARY | 2022-09-26 18:59 | XMS REPORT | Continuity of Care Document ---
:1945 Author Organization [facility] t Address [address] [place] [address] [place] [id number] Care Team Providers Name Role Phone PALOMO ESCOTO Primary Care Physician Unavailable MEHREEN NUNEZ Attending Clinician Unavailable Mehreen Nunez MD Attending Clinician Doctor Unassigned, [place] Attending Clinician Unavailable Sade Dominguez MD Attending Clinician SADE DOMINGUEZ Attending Clinician Unavailable [email or web address]_Jim Attending Clinician Unavailable Saul_Jim Admitting Clinician Unavailable Payers Payer Name Policy Type Policy Number Effective Date Expiration Date [facility] [id number] 2020 [facility] 00:00:00 PPO [employer] (MEDICARE [id number] REPLACEMENT/ADVANTA GE - PPO) Problems Condition Condition Condition Status Onset Resolution Last Treating Co mments Source Name Details Category Date Date Treatment Clinician Date HTN HTN Disease Active Univers (hypertens (hypertens -27 it y of ion), ion), 00:00: benign benign Medical Branch Dyslipidem Dyslipidem Disease Active U nivers ia ia 4-27 ity of 00:00: [place] 00 Medical Branch Acquired Acquired Disease Active Unive rs hypothyroi hypothyroi -27 it y of dism dism 00:00: [place] [facility] Thrombotic Thrombotic Disease Active U nivers disorder disorder 1-15 ity of 00:00: [place] [facility] Unspecifie Unspecifie Disease Active U nivers d adverse d adverse 1-15 [place] of effect of [place] 00 Medical drug, drug, Branch medicinal medicinal and and biological biological substance( substance( 995.29 995.29) Osteopenia Osteopenia Disease Active U nivers 1-15 ity of 00:00: [place] [facility] [place] Allergies, Adverse Reactions, Alerts Allergy Allergy Status Severity Reaction(s) Onset Inactive Treating Comm ents Source Name Type Date Date Clinician Alfred Propensi Active Rash Univer s Allergy ty to 4-27 ity of Deconges adverse 00:00: [place] tant reaction 00 Medical s Branch Codeine Propensi Active Rash Univers ty to 4-27 ity of adverse 00:00: [place] reaction 00 Medical s Branch BENADRYL DRUG Active Med Rash Univers ALLERGY 4-27 ity of DECONGES 00:00: [place] TANT Medical Branch CODEINE DRUG Active Med Rash Univers INGREDI 4-27 ity of 00:00: [place] [facility] [place] Social History Social Habit Start Date Stop Date Quantity Comments Source Exposure to 2022-03-16 2022-03-26 Not sure [facility] SARS-CoV-2 00:00:00 11:44:00 [facility] (event) [place] Alcohol intake 2021-11-20 2021-11-20 Current University of 00:00:00 00:00:00 non-drinker of [facility] alcohol [place] (finding) Sex Ass[birth year] At [birth year] Universit y of 00:00:00 00:00:00 [facility] Smoking Status Start Date Stop Date Source Never Smoker [facility] Medications Ordered Filled Start Stop Current Ordering Indication Dosage Frequency Signature Comments Components Source Medication Medication Date Date Medication? Clinician (SIG) Name Name GLIPIZIDE 5 Yes 5mg TAKE 1 Univ ers mg tablet 2-21 TABLET BY ity o f 00:00: MOUTH IN [place] 00 THE Medical MORNING Branch ONETOUCH Yes Use to Univers DELICA PLUS 1-10 check ity of LANCET 33 00:00: blood [place] gauge Mis 00 sugar 1X Medic al daily. DX: Branch E11.65 ONETOUCH 0 Yes Use to Univers DELICA PLUS 1-10 check ity of LANCET 33 00:00: blood [place] gauge Misc 00 sugar 1X Medic al daily. DX: Lorene E11.65 glipiZIDE 5 2021-0 Yes [id number] 5mg Take 1 Univers mg tablet 8-31 tablet by ity o f 00:00: mouth in [place] 00 the Medical morning. Branch glipiZIDE 5 2021-0 Yes [id number] 5mg Take 1 Univers mg tablet 8-31 tablet by ity o f 00:00: mouth in [place] 00 the Medical morning. Branch glipiZIDE 5 2021-0 Yes [id number] 5mg Take 1 Univers mg tablet 8-31 tablet by ity o f 00:00: mouth in [place] 00 the Medical morning. Branch glipiZIDE 5 2021-0 Yes [id number] 5mg Take 1 Univers mg tablet 8-31 tablet by ity o f 00:00: mouth in [place] 00 the Medical morning. Branch glipiZIDE 5 2021-0 2022- No [id number] 5mg Take 1 Univers mg tablet 8-31 02-21 tablet by ity of 00:00: 00:00 mouth in [place] 00 :00 the Medical morning. Branch blood sugar 2021-0 Yes [id number] Use to Univers diagnostic 6-16 check ity of (ONETOUCH 00:00: blood [place] VERIO TEST 00 sugar 1X Medic al STRIPS) daily. Branch strip DX:E11.8 blood sugar 2021-0 Yes [id number] Use to Univers diagnostic 6-16 check ity of (ONETOUCH 00:00: blood [place] VERIO TEST 00 sugar 1X Medic al STRIPS) daily. Branch strip DX:E11.8 blood sugar 2021-0 Yes [id number] Use to Univers diagnostic 6-16 check ity of (ONETOUCH 00:00: blood [place] VERIO TEST 00 sugar 1X Medic al STRIPS) daily. Branch strip DX:E11.8 blood sugar 2021-0 Yes [id number] Use to Univers diagnostic 6-16 check ity of (ONETOUCH 00:00: blood [place] VERIO TEST 00 sugar 1X Medic al STRIPS) daily. Branch strip DX:E11.8 blood sugar 2021-0 Yes [id number] Use to Univers diagnostic 6-16 check ity of (ONETOUCH 00:00: blood [place] VERIO TEST 00 sugar 1X Medic al STRIPS) daily. Branch strip DX:E11.8 blood sugar 2021-0 Yes [id number] Use to [facility] diagnostic 6-16 check ity of (ONETOUCH 00:00: blood [place] VERIO TEST 00 sugar 1X Medic al STRIPS) daily. Branch strip DX:E11.8 blood sugar 0 Yes [id number] Use to [facility] diagnostic 6-16 check ity of (ONETOUCH 00:00: blood [place] VERIO TEST 00 sugar 1X Medic al STRIPS) daily. Branch strip DX:E11.8 blood sugar 0 Yes [id number] Use to [facility] diagnostic 6-16 check ity of (ONETOUCH 00:00: blood [place] VERIO TEST 00 sugar 1X Medic al STRIPS) daily. Branch strip DX:E11.8 blood sugar 0 Yes [id number] Use to [facility] diagnostic 6-16 check ity of (ONETOUCH 00:00: blood [place] VERIO TEST 00 sugar 1X Medic al STRIPS) daily. Branch strip DX:E11.8 blood sugar 0 Yes [id number] Use to [facility] diagnostic 6-16 check ity of (ONETOUCH 00:00: blood [place] VERIO TEST 00 sugar 1X Medic al STRIPS) daily. Branch strip DX:E11.8 ergocalcife 0 Yes [id number] Take Univ ers rol, 4-27 50,000 ity of vitamin d2, 10:52: Units by [place] (VITAMIN 26 mouth Medical D2) 50,000 weekly. Branch unit capsule SITagliptin 2021-0 Yes Take 1 Univ ers -metformin 4-27 TAB-CAP/M2 ity of (JANUMET 10:52: by mouth [place] XR) 26 daily. Medical 100-1,000 Branch mg per tablet ergocalcife 202-0 Yes [id number] Take Univ ers rol, 4-27 50,000 ity of vitamin d2, 10:52: Units [place] (VITAMIN 26 mouth Medical D2) 50,000 weekly. Branch unit capsule SITagliptin 2021-0 Yes Take 1 Univ ers -metformin 4-27 TAB-CAP/M2 ity of (JANUMET 10:52: by mouth [place] XR) 26 daily. Medical 100-1,000 Branch mg per tablet ergocalcife 2021-0 Yes [id number] Take Univ ers rol, 4-27 50,000 ity of vitamin d2, 10:52: Units [place] (VITAMIN 26 mouth Medical D2) 50,000 weekly. Branch unit capsule SITagliptin Yes Take 1 Univ ers -metformin 4-27 TAB-CAP/M2 ity of (JANUMET 10:52: by mouth [place] XR) 26 daily. Medical 100-1,000 Branch mg per tablet ergocalcife Yes [id number] Take Univ ers rol, 4-27 50,000 ity of vitamin d2, 10:52: Units [place] (VITAMIN 26 mouth Medical D2) 50,000 weekly. Branch unit capsule SITagliptin Yes Take 1 Univ ers -metformin 4-27 TAB-CAP/M2 ity of (JANUMET 10:52: by mouth [place] XR) 26 daily. Medical 100-1,000 Branch mg per tablet ergocalcife Yes [id number] Take Univ ers rol, 4-27 50,000 ity of vitamin d2, 10:52: Units [place] (VITAMIN 26 mouth Medical D2) 50,000 weekly. Branch unit capsule SITagliptin Yes Take 1 Univ ers -metformin 4-27 TAB-CAP/M2 ity of (JANUMET 10:52: by mouth [place] XR) 26 daily. Medical 100-1,000 Branch mg per tablet ONE TOUCH Yes [id number] Use as Un ginny DELICA 33 4-27 directed ity of gauge Misc 00:00: E11.65 [place] [facility] ONE TOUCH Yes [id number] Use as Un ginny DELICA 33 4-27 directed ity of gauge Misc 00:00: E11. Medical Branch ONE TOUCH Yes [id number] Use as Un ginny DELICA 33 4-27 directed ity of gauge Misc 00:00: E11. Medical Branch ONE TOUCH 2022- No [id number] Use as U nivers DELICA 33 4-27 01-10 directed ity o f gauge Misc 00:00: 00:00 E11.65 [place] 00 :[place] Medical Branch glipiZIDE 2021- No [id number] 10mg Take 1 U nivers XL 10 mg 24 11-20 08-31 tablet by it y of hr tablet 00:00: 00:00 mouth [place] 00 :00 daily with Medical breakfast. Branch JARDIANCE 2021-0 Yes 1{tbl} Take 1 Univ ers 25 mg Tab 3-22 tablet by ity o f 00:00: mouth [place] 00 daily. Medical Branch JARDIANCE 2021-0 Yes 1{tbl} Take 1 Univ ers 25 mg Tab 3-22 tablet by ity o f 00:00: mouth [place] 00 daily. Medical Branch JARDIANCE 2021-0 Yes 1{tbl} Take 1 Univ ers 25 mg Tab 3-22 tablet by ity o f 00:00: mouth [place] 00 daily. Medical Branch JARDIANCE 2021-0 Yes 1{tbl} Take 1 Univ ers 25 mg Tab 3-22 tablet by ity o f 00:00: mouth [place] 00 daily. Medical Branch JARDIANCE 2021-0 Yes 1{tbl} Take 1 Univ ers 25 mg Tab 3-22 tablet by ity o f 00:00: mouth [place] 00 daily. Medical Branch lisinopriL 0 Yes 2.5mg Take 2.5 Un ginny 5 mg tablet 2-16 mg by ity of 00:00: mouth [place] 00 daily. Medical Branch metoprolol Yes 50mg Take 50 mg U nivers succinate 2-16 by mouth ity of XL 50 mg 24 00:00: at [place] hr tablet 00 bedtime. Medica l Branch lisinopriL 0 Yes 2.5mg Take 2.5 Un ginny 5 mg tablet 2-16 mg by ity of 00:00: mouth [place] 00 daily. Medical Branch metoprolol 2021-0 Yes 50mg Take 50 mg U nivers succinate 2-16 by mouth ity of XL 50 mg 24 00:00: at [place] hr tablet 00 bedtime. Medica l Branch lisinopriL 2021-0 Yes 2.5mg Take 2.5 Un ginny 5 mg tablet 2-16 mg by ity of 00:00: mouth [place] 00 daily. Medical Branch metoprolol 2021-0 Yes 50mg Take 50 mg U nivers succinate 2-16 by mouth ity of XL 50 mg 24 00:00: at [place] hr tablet 00 bedtime. Medica l Branch lisinopriL 2021-0 Yes 2.5mg Take 2.5 Un ginny 5 mg tablet 2-16 mg by ity of 00:00: mouth [place] 00 daily. Medical Branch metoprolol Yes 50mg Take 50 mg U nivers succinate 2-16 by mouth ity of XL 50 mg 24 00:00: at [place] hr tablet 00 bedtime. Medica l Branch lisinopriL Yes 2.5mg Take 2.5 Un ginny 5 mg tablet 2-16 mg by ity of 00:00: mouth [place] 00 daily. Medical Branch metoprolol Yes 50mg Take 50 mg U nivers succinate 2-16 by mouth ity of XL 50 mg 24 00:00: at [place] hr tablet 00 bedtime. Medica l Branch hydrochloro 2020-07 Yes 12.5mg Take 12.5 Univers thiazide 1-04 mg by ity of (ESIDRIX) 08:40: mouth [place] 12.5 mg 52 daily. Medical capsule Branch METOPROLOL 2020-07 Yes 25mg Take 25 mg U nivers TARTRATE 1-04 by mouth. ity of ORAL 08:40: [place] [address] Medical Branch levothyroxi 2020-07 Yes 125ug Take 125 U nivers ne 1-04 mcg by ity of (SYNTHROID) 08:40: mouth [place] 125 mcg 52 every Medical tablet morning. Branch rosuvastati 2020-07 Yes 40mg Take 40 mg Univers n (CRESTOR) 1-04 by mouth ity of 40 mg 08:40: at [place] tablet 52 bedtime. Medical Branch clopidogrel 2020-07 Yes 75mg Take 75 mg Univers (PLAVIX) 75 1-04 by mouth ity of mg tablet 08:40: daily. [place] [address] Medical Branch Famotidine 2020-07 Yes Take by Univ ers (PEPCID 1-04 mouth. ity of RPD) 20 mg 08:40: [place] [facility] ferrous 2020-07 Yes 325mg Take 325 Unive rs sulfate 1-04 mg by ity of (IRON) 325 08:40: mouth [place] mg (65 mg 52 daily. Medical iron) Branch tablet aspirin 81 2020-07 Yes 81mg Take 81 mg U nivers mg tablet 1-04 by mouth ity of 08:40: daily. [place] [address] Medical Branch FERROUS 2020-07 Yes Take by Univers FUMARATE/ 1-04 mouth. ity of T BCOMP&C 08:40: [place] (SUPER B 52 Medical COMPLEX Branch ORAL) folic acid 2020-07 Yes 400ug Take 400 Un ginny (FOLVITE) 1-04 mcg by ity of 400 mcg 08:40: mouth [place] tablet 52 daily. Medical Branch hydrochloro 2020-07 Yes 12.5mg Take 12.5 Univers thiazide 1-04 mg by ity of (ESIDRIX) 08:40: mouth [place] 12.5 mg 52 daily. Medical capsule Branch METOPROLOL 2020-07 Yes 25mg Take 25 mg U nivers TARTRATE 1-04 by mouth. ity of ORAL 08:40: [place] [address] Medical Branch levothyroxi 2020-07 Yes 125ug Take 125 U nivers ne 1-04 mcg by ity of (SYNTHROID) 08:40: mouth [place] 125 mcg 52 every Medical tablet morning. Branch rosuvastati 2020-07 Yes 40mg Take 40 mg Univers n (CRESTOR) 1-04 by mouth ity of 40 mg 08:40: at [place] tablet 52 bedtime. Medical Branch clopidogrel 2020-07 Yes 75mg Take 75 mg Univers (PLAVIX) 75 1-04 by mouth ity of mg tablet 08:40: daily. [place] [address] Medical Branch Famotidine 2020-07 Yes Take by Univ ers (PEPCID 1-04 mouth. ity of RPD) 20 mg 08:40: [place] [address] Medical Branch ferrous 2020-07 Yes 325mg Take 325 Unive rs sulfate 1-04 mg by ity of (IRON) 325 08:40: mouth [place] mg (65 mg 52 daily. Medical iron) Branch tablet aspirin 81 2020-07 Yes 81mg Take 81 mg U nivers mg tablet 1-04 by mouth ity of 08:40: daily. [place] [address] Medical Branch FERROUS 2020-07 Yes Take by Univers FUMARATE/ 1-04 mouth. ity of T BCOMP&C 08:40: [place] ([facility] B 52 Medical COMPLEX Branch ORAL) folic acid 2020-07 Yes 400ug Take 400 Un ginny (FOLVITE) 1-04 mcg by ity of 400 mcg 08:40: mouth [place] tablet 52 daily. Medical Branch hydrochloro 2020-07 Yes 12.5mg Take 12.5 Univers thiazide 1-04 mg by ity of (ESIDRIX) 08:40: mouth [place] 12.5 mg 52 daily. Medical capsule Branch METOPROLOL 2020-07 Yes 25mg Take 25 mg U nivers TARTRATE 1-04 by mouth. ity of ORAL 08:40: [place] [address] Medical Branch levothyroxi 2020-07 Yes 125ug Take 125 U nivers ne 1-04 mcg by ity of (SYNTHROID) 08:40: mouth [place] 125 mcg 52 every Medical tablet morning. Branch rosuvastati 2020-07 Yes 40mg Take 40 mg Univers n (CRESTOR) 1-04 by mouth ity of 40 mg 08:40: at [place] tablet 52 bedtime. Medical Branch clopidogrel 2020-07 Yes 75mg Take 75 mg Univers (PLAVIX) 75 1-04 by mouth ity of mg tablet 08:40: daily. [place] [address] Medical Branch Famotidine 2020-07 Yes Take by Univ ers (PEPCID 1-04 mouth. ity of RPD) 20 mg 08:40: [place] [address] Medical Branch ferrous 2020-07 Yes 325mg Take 325 Unive rs sulfate 1-04 mg by ity of (IRON) 325 08:40: mouth [place] mg (65 mg 52 daily. Medical iron) Branch tablet aspirin 81 2020-07 Yes 81mg Take 81 mg U nivers mg tablet 1-04 by mouth ity of 08:40: daily. [place] [address] Medical Branch FERROUS 2020-07 Yes Take by Univers FUMARATE/ 1-04 mouth. ity of T BCOMP&C 08:40: [place] ([facility] B 52 Medical COMPLEX Branch ORAL) folic acid 2020-07 Yes 400ug Take 400 Un ginny (FOLVITE) 1-04 mcg by ity of 400 mcg 08:40: mouth [place] tablet 52 daily. Medical Branch hydrochloro 2020-07 Yes 12.5mg Take 12.5 Univers thiazide 1-04 mg by ity of (ESIDRIX) 08:40: mouth [place] 12.5 mg 52 daily. Medical capsule Branch METOPROLOL 2020-07 Yes 25mg Take 25 mg U nivers TARTRATE 1-04 by mouth. ity of ORAL 08:40: [place] [address] Medical Branch levothyroxi 2020-07 Yes 125ug Take 125 U nivers ne 1-04 mcg by ity of (SYNTHROID) 08:40: mouth [place] 125 mcg 52 every Medical tablet morning. Branch rosuvastati 2020-07 Yes 40mg Take 40 mg Univers n (CRESTOR) 1-04 by mouth ity of 40 mg 08:40: at [place] tablet 52 bedtime. Medical Branch clopidogrel 2020-07 Yes 75mg Take 75 mg Univers (PLAVIX) 75 1-04 by mouth ity of mg tablet 08:40: daily. [place] [address] Medical Branch Famotidine 2020-07 Yes Take by Univ ers (PEPCID 1-04 mouth. ity of RPD) 20 mg 08:40: [place] [facility] Medical Branch ferrous 2020-07 Yes 325mg Take 325 Unive rs sulfate 1-04 mg by ity of (IRON) 325 08:40: mouth [place] mg (65 mg 52 daily. Medical iron) Branch tablet aspirin 81 2020-07 Yes 81mg Take 81 mg U nivers mg tablet 1-04 by mouth ity of 08:40: daily. [place] [address] Medical Branch FERROUS 2020-07 Yes Take by Univers FUMARATE/ 1-04 mouth. ity of T BCOMP&C 08:40: [place] (SUPER B 52 Medical COMPLEX Branch ORAL) folic acid 2020-07 Yes 400ug Take 400 Un ginny (FOLVITE) 1-04 mcg by ity of 400 mcg 08:40: mouth [place] tablet 52 daily. Medical Branch hydrochloro 2020-07 Yes 12.5mg Take 12.5 Univers thiazide 1-04 mg by ity of (ESIDRIX) 08:40: mouth [place] 12.5 mg 52 daily. Medical capsule Branch METOPROLOL 2020-07 Yes 25mg Take 25 mg U nivers TARTRATE 1-04 by mouth. ity of ORAL 08:40: [place] [address] Medical Branch levothyroxi 2020-07 Yes 125ug Take 125 U nivers ne 1-04 mcg by ity of (SYNTHROID) 08:40: mouth [place] 125 mcg 52 every Medical tablet morning. Branch rosuvastati 2020-07 Yes 40mg Take 40 mg Univers n (CRESTOR) 1-04 by mouth ity of 40 mg 08:40: at [place] tablet 52 bedtime. Medical Branch clopidogrel 2020-07 Yes 75mg Take 75 mg Univers (PLAVIX) 75 1-04 by mouth ity of mg tablet 08:40: daily. [place] [address] Medical Branch Famotidine 2020-07 Yes Take by Univ ers (PEPCID 1-04 mouth. ity of RPD) 20 mg 08:40: [place] TbDL 52 Medical Branch ferrous 2020-07 Yes 325mg Take 325 Unive rs sulfate 1-04 mg by ity of (IRON) 325 08:40: mouth [place] mg (65 mg 52 daily. Medical iron) Branch tablet aspirin 81 2020-07 Yes 81mg Take 81 mg U nivers mg tablet 1-04 by mouth ity of 08:40: daily. [place] 52 Medical Branch FERROUS 2020-07 Yes Take by Univers FUMARATE/ 1-04 mouth. ity of T BCOMP&C 08:40: [place] (SUPER B 52 Medical COMPLEX Branch ORAL) folic acid 2020-07 Yes 400ug Take 400 Un ginny (FOLVITE) 1-04 mcg by ity of 400 mcg 08:40: mouth [place] tablet 52 daily. Medical Branch methylPREDN 2020-07 Yes [id number] 84mg Take 21 Univers ISolone 1-04 tablets by ity of (MEDROL, 00:00: mouth [place] SERA,) 4 mg 00 SEE-INSTRU Med ical tablets CTIONS. Branch follow package directions methylPREDN 2020-07 Yes [id number] 84mg Take 21 Univers ISolone 1-04 tablets by ity of (MEDROL, 00:00: mouth [place] SERA,) 4 mg 00 SEE-INSTRU Med ical tablets CTIONS. Branch follow package directions methylPREDN 2020-07 Yes [id number] 84mg Take 21 Univers ISolone 1-04 tablets by ity of (MEDROL, 00:00: mouth [place] SERA,) 4 mg 00 SEE-INSTRU Med ical tablets CTIONS. Branch follow package directions methylPREDN 2020-07 Yes [id number] 84mg Take 21 Univers ISolone 1-04 tablets by ity of (MEDROL, 00:00: mouth [place] SERA,) 4 mg 00 SEE-INSTRU Med ical tablets CTIONS. Branch follow package directions methylPREDN 2020-07 Yes [id number] 84mg Take 21 Univers ISolone 1-04 tablets by ity of (MEDROL, 00:00: mouth [place] SERA,) 4 mg 00 SEE-INSTRU Med ical tablets CTIONS. Branch follow package directions risedronate Yes 35mg Take 35 mg Univers (ATELVIA) 1-15 by mouth ity of 35 mg TbEC 00:00: [place]. [place] 00 [place] risedronate Yes 35mg Take 35 mg Univers (ATELVIA) 1-15 by mouth ity of 35 mg TbEC 00:00: weekly. [facility] risedronate Yes 35mg Take 35 mg Univers (ATELVIA) 1-15 by mouth ity of 35 mg TbEC 00:00: weekly. [facility] risedronate Yes 35mg Take 35 mg Univers (ATELVIA) 1-15 by mouth ity of 35 mg TbEC 00:00: weekly. [facility] risedronate Yes 35mg Take 35 mg Univers (ATELVIA) 1-15 by mouth ity of 35 mg TbEC 00:00: weekly. [facility] clopidogrel clopidogrel No clopidogre [place] 75 mg 75 mg l 75 mg da tablet tablet tablet Medical Group fluticasone fluticasone No fluticason [place] propionate propionate e da 50 50 propionate Medical mcg/actuati mcg/actuati 50 G roup on nasal on nasal mcg/actuat spray,suspe spray,suspe ion nasal nsion nsion spray,susp ension Fluzone Fluzone No Fluzone [place] High-Dose High-Dose High-Dose da Medical (PF) 180 (PF) 180 (PF) 180 [...] 1 Group daily daily tablet PO daily Immunizations Ordered Filled Immunization Date Status Comments [facility] e Immunization Name Name SARS-COV-2 COVID-19 2020-10-08 Completed Unive rsity of PFIZER VACCINE 00:00:00 [facility] SARS-COV-2 COVID-19 2020-10-08 Completed Unive rsity of PFIZER VACCINE 00:00:00 [facility] SARS-COV-2 COVID-19 2020-10-08 Completed Unive rsity of PFIZER VACCINE 00:00:00 [facility] SARS-COV-2 COVID-19 2020-10-08 Completed Unive rsity of PFIZER VACCINE 00:00:00 [facility] SARS-COV-2 COVID-19 2020-10-08 Completed Unive rsity of PFIZER VACCINE 00:00:00 [facility] SARS-COV-2 COVID-19 2020-09-17 Completed Unive rsity of PFIZER VACCINE 00:00:00 [facility] SARS-COV-2 COVID-19 2020-09-17 Completed Unive rsity of PFIZER VACCINE 00:00:00 [facility] SARS-COV-2 COVID-19 2020-09-17 Completed Unive rsity of PFIZER VACCINE 00:00:00 [facility] SARS-COV-2 COVID-19 2020-09-17 Completed Unive rsity of PFIZER VACCINE 00:00:00 [facility] SARS-COV-2 COVID-19 2020-09-17 Completed Unive rsity of PFIZER VACCINE 00:00:00 [facility] Vital Signs Vital Name Observation Time Observation Value Comments Source Systolic blood 2022-03-26 17:34:00 122 mm[Hg] Univer sity of [facility] Diastolic blood 2022-03-26 17:34:00 58 mm[Hg] Unive rsity of [facility] Heart rate 2022-03-26 17:34:00 82 /min [facility] Body height 2022-03-26 17:34:00 170.2 cm [facility] Body weight 2022-03-26 17:34:00 73.483 kg [facility] BMI 2022-03-26 17:34:00 25.37 kg/m2 [facility] Oxygen saturation 2022-03-26 17:34:00 95 /min [facility] in Arterial blood Medical Br anch by Pulse oximetry BP Diastolic 2019-05-26 00:00:00 73 mm[Hg] [facility] Height 2019-05-26 00:00:00 67 [in_i] [facility] BMI (Body Mass 2019-05-26 00:00:00 24.5 kg/m2 [facility] gold layer Medical Index) Group BP Systolic 2019-05-26 00:00:00 160 mm[Hg] [facility] Body Weight 2019-05-26 00:00:00 156.6 [lb_av] [facility] Procedures Procedure Date / Time Performing Clinician Source Performed EXTERNAL PROVIDER RECORDS 2022-04-29 05:01:00 Doctor Unassigned, [facility] [place] [facility] Branch TYMPANOMETRY 2019-05-26 00:00:00 [facility] Placement of Stent in [facility] Procedure on Back [facility] Hysterectomy [facility] Repair of Umbilical Hernia [facility] Cholecystectomy [facility] Thyroidectomy [facility] Plan of Care Planned Activity Planned Date Details Comments Source Instructions [facility] Encounters Start End Encounter Admission Attending Care Care Encounter Source Date/Time Date/Time Type Type Clinicians Facility Department ID 2022-09-30 2022-09-30 Outpatient R FATMATA [facility] [id number] Univers 11:00:00 11:00:00 MEHREEN hernandez [facility] 2022-09-16 2022-09-16 Refill Fatmata [facility] [id number] Univers 00:00:00 00:00:00 [facility] [id number] it y of [place] [id number] Joey as LEOPOLDO?BLEA [id number] [address] MEDICAL OFFICE [facility] 2022-08-05 2022-08-05 Refill [facility] [id number] Univers 00:00:00 00:00:00 [facility] [id number] it y of [place] [id number] Joey as LEOPOLDO?BLEA [id number] [address] MEDICAL OFFICE [facility] 2022-07-29 2022-07-29 Refill [facility] [id number] Univers 00:00:00 00:00:00 [facility] [id number] it y of [place] [id number] Joey as LEOPOLDO?BLEA [id number] [address] OFFICE [facility] 2022-04-29 2022-04-29 Orders Doctor JANY [id number] Univers 00:00:00 00:00:00 Only Unassigned, CHARLES [id number] ity of [place] [facility] [id number] Joey as [id number] [address] 2022-03-26 2022-03-26 Outpatient R FATMATA [facility] [id number] Univers 12:00:00 13:07:26 [facility] ity of [facility] 2022-03-26 2022-03-26 [facility] [id number] Univers 12:00:00 13:07:26 Visit [facility] [id number] it y of [place] [id number] Joey as LEOPOLDO?BLEA [id number] [address] OFFICE [facility] 2022-03-26 2022-03-26 Telephone [facility] [id number] Univers 00:00:00 00:00:00 [facility] 350.1.13.10 it y of [place] 4.2.7.2.686 Joey as LEOPOLDO?BLEA [phone] [address] OFFICE [facility] 2022-01-09 2022-01-09 Telephone Nunez, [facility] [id number] Univers 00:00:00 00:00:00 [facility] 350.1.13.10 it y of [place] 4.2.7.2.686 Joey as LEOPOLDO?BLEA [id number] [address] MEDICAL OFFICE [facility] 2021-12-02 2021-12-02 Telephone Nunez, [facility] [id number] Univers 00:00:00 00:00:00 [facility] 350.1.13.10 it y of [place] 4.2.7.2.686 Joey as LEOPOLDO?BLEA [id number] [address] OFFICE [facility] 2021-11-20 2021-11-20 [facility] [id number] Univers 10:30:00 11:20:08 [facility] ity [facility] 2021-11-20 2021-11-20 Office Nunez, [facility] 1.2.840.114 [id number] Univers 10:30:00 11:20:08 Visit [facility] [employer] 350.1.13.10 it y of [place] 4.2.7.2.686 Joey as LEOPOLDO?BLEA [phone] [address] OFFICE [facility] 2021-11-20 2021-11-20 [facility] 1.2.840.114 [id number] Univers 00:00:00 00:00:00 [facility] 350.1.13.10 it y of [place] 4.2.7.2.686 Joey as LEOPOLDO?BLEA [phone] [address] OFFICE [facility] 2021-11-20 2021-11-20 [facility] 1.2.840.114 [id number] Univers 00:00:00 00:00:00 [facility] 350.1.13.10 it y of [place] 4.2.7.2.686 Joey as LEOPOLDO?BLEA [phone] [address] MEDICAL OFFICE [facility] 2021-11-20 2021-11-20 Telephone [facility] [id number] Univers 00:00:00 00:00:00 [facility] 350.1.13.10 it y of [place] 4.2.7.2.686 Joey as LEOPOLDO?BLEA [phone] [place] bobbi GONZALEZ [address] MEDICAL [facility]ICE [facility] 2021-11-20 2021-11-20 Orders Doctor CARMICHAEL 1.2.840.114 [id number] Univers 00:00:00 00:00:00 Only Unassigned, CHARLES 350.1.13.10 ity of [place] [facility] 4.2.7.2.686 Joey as [phone] [address] 2021-07-16 2021-07-16 Orders Doctor JANY 1.2.840.114 [id number] Univers 00:00:00 00:00:00 Only Unassigned, CHARLES 350.1.13.10 ity of [place] [facility] 4.2.7.2.686 Joey as [phone] [address] 2021-06-27 2021-06-27 Orders Doctor CARMICHAEL 1.2.840.114 [id number] Univers 00:00:00 00:00:00 Only Unassigned, CHARLES 350.1.13.10 ity of [place] [facility] 4.2.7.2.686 Joey as [phone] [address] 2021-06-13 2021-06-13 Orders Doctor CARMICHAEL 1.2.840.114 [id number] Univers 00:00:00 00:00:00 Only Unassigned, CHARLES 350.1.13.10 ity of [place] [facility] 4.2.7.2.686 Joey as [phone] [address] 2021-05-30 2021-05-30 [facility] 1.2.840.114 [id number] Univers 09:05:00 23:59:00 Encounter Sade L HEALTH 350.1.13.10 ity of [place] 4.2.7.2.686 Joey as LEOPOLDO?BLEA [phone] [facility] [address] MEDICAL OFFICE [facility] 2021-05-30 2021-05-30 Outpatient R DENISE [facility] [id number] Univers 09:00:00 09:46:30 SADE hernandez [facility] 2021-05-30 2021-05-30 Outpatient R DENISE [facility] [id number] Univers 09:00:00 09:46:30 SADE hernandez [facility] 2021-05-30 2021-05-30 Office Denise [facility] [id number] Univers 08:39:39 09:46:30 Visit Sade [facility] 350.1.13.10 it y of [place] 4.2.7.2.686 Joey as LEOPOLDO?BLEA [phone] [place] dical [address] MEDICAL OFFICE BUILDING 2021-05-30 2021-05-30 Orders Doctor JANY 1.2.840.114 [id number] Univers 00:00:00 00:00:00 Only Unassigned, CHARLES 350.1.13.10 ity of [place] [facility] 4.2.7.2.686 Joey as [phone] [address] 2020-06-13 2020-06-13 Outpatient Saul_P [facility] [id number] [place] 02:44:00 02:44:00 1118 [facility] 2019-05-26 2019-05-26 Palivela [facility] [place] - [id number] [place] 00:00:00 00:00:00 MD Saul: [address] [facility] - [address], Otolaryngol [facility] [address] , Ph. Results Test Description Test Time Test Comments Results Result Comments Source tympanogram 2019-05-26 14:04:56 Test Item Value Reference Range Interpretation Comme nts Right (test code = Right) Type C Peak is on Left Left (test code = Left) Type C Peak is on Left [facility]
--- NOTE | 2022-09-26 19:49 | RAD REPORT ---
EXAM DESCRIPTION: Olga Single View09/26/2022 7:29 pm CLINICAL HISTORY: Chest pain COMPARISON: 2019 epigastric pain FINDINGS: The lungs appear clear of acute infiltrate. The heart is normal size IMPRESSION: No acute abnormalities displayed
--- NOTE | 2022-09-26 20:17 | ER ---
Nurse's Notes [facility] Name: Sherice Ward Age: 77 yrs Sex: Female : 1945 Arrival Date: 09/26/2022 Time: 18:57 Bed 20 Private MD: Diagnosis: Epigastric pain Presentation: 09/26 18:58 Chief complaint: EMS states: had epigastric pain x 1 this evening, it was over by the ko1 time we arrived. Coronavirus screen: Vaccine status: Patient reports receiving the 2nd dose of the covid vaccine. At this time, the client does not indicate any symptoms associated with coronavirus-19. Ebola Screen: No symptoms or risks identified at this time. Initial Sepsis Screen: Does the patient meet any 2 criteria? No. Patient's initial sepsis screen is negative. Does the patient have a suspected source of infection? No. Patient's initial sepsis screen is negative. Risk Assessment: Do you want to hurt yourself or someone else? Patient reports no desire to harm self or others. Onset of symptoms was September 26, 2022. 18:58 Method Of Arrival: EMS: [facility] ko1 18:58 Acuity: SHELBY 3 ko1 Triage Assessment: 18:59 General: Appears in no apparent distress. comfortable, Behavior is calm, cooperative, ko1 appropriate for age. Pain: Denies pain. Historical: - Allergies: 18:59 Codeine; ko1 - PMHx: 18:59 Diabetes - NIDDM; High Cholesterol; Hypertension; Hypothyroidism; Myocardial infarction;ko1 - Immunization history:: Adult Immunizations up to date. - Social history:: Smoking status: Patient denies any tobacco usage or history of. Assessment: 20:10 Reassessment: Patient wants to leave because she does not want needle stick. ke1 Vital Signs: 18:58 BP 109 / 51; Pulse 66; Resp 18; Temp 97; Pulse Ox 99% ; Pain 0/10; ko1 ED Course: 18:57 Patient arrived in ED. ko1 18:58 Yuki Sosa, AC is Primary Nurse. ko1 18:59 Triage completed. ko1 18:59 Arm band placed on right wrist. ko1 19:02 Oral Duong PA is PHCP. cp 19:02 Raciel Youngblood DO is Attending Physician. cp 19:05 Macario Alva MD is Attending Physician. cp Administered Medications: No medications were administered Medication: 20:36 VIS not applicable for this client. ke1 Outcome: 20:17 Discharge ordered by . cp 20:35 Discharged to home ambulatory. ke1 20:35 Condition: good 20:35 Discharge instructions given to patient. 20:39 Patient left the ED. ke1 Signatures: Oral Duong PA PA cp Ebrottie, Kouassi RN RN ke1 Yuki Sosa RN RN ko1
--- NOTE | 2022-09-26 20:17 | EDPHYS ---
Physician Documentation [facility] Name: Sherice Ward Age: 77 yrs Sex: Female : 1945 Arrival Date: 09/26/2022 Time: 18:57 Bed 20 Private MD: ED Physician Macario Alva HPI: 09/26 19:10 This 77 yrs old Female presents to ER via EMS with complaints of Epigastric Pain. cp 19:10 The patient presents with abdominal pain in the epigastric area. cp 19:10 Onset: The symptoms/episode began/occurred suddenly, about 1 hour ago. cp 19:10 The symptoms do not radiate. Associated signs and symptoms: Pertinent positives: cp nausea, Pertinent negatives: chest pain, constipation, diarrhea, fever, vomiting. Severity of pain: in the emergency department the pain has resolved upon EMS arrival to home. Historical: - Allergies: 18:59 Codeine; ko1 - PMHx: 18:59 Diabetes - NIDDM; High Cholesterol; Hypertension; Hypothyroidism; Myocardial infarction;ko1 - Immunization history:: Adult Immunizations up to date. - Social history:: Smoking status: Patient denies any tobacco usage or history of. ROS: 19:13 Abdomen/GI: Positive for abdominal pain, of the epigastric area. cp 19:13 Constitutional: Negative for body aches, chills, fever, poor PO intake. cp 19:13 Eyes: Negative for injury, pain, redness, and discharge. cp 19:13 ENT: Negative for drainage from ear(s), ear pain, sore throat, difficulty swallowing, difficulty handling secretions. 19:13 Neck: Negative for pain with movement, pain at rest, stiffness. 19:13 Cardiovascular: Negative for chest pain, edema, palpitations. 19:13 Respiratory: Negative for cough, shortness of breath, wheezing. 19:13 Back: Negative for pain at rest, pain with movement. 19:13 Neuro: Negative for altered mental status, dizziness, headache, weakness. 19:13 All other systems are negative. Exam: 19:15 Constitutional: The patient appears in no acute distress, alert, awake, comfortable, cp non-diaphoretic, non-toxic, well developed, well nourished. 19:15 Head/Face: Normocephalic, atraumatic. cp 19:15 Eyes: Periorbital structures: appear normal, Conjunctiva: normal, no exudate, no injection, Sclera: no appreciated abnormality, Lids and lashes: appear normal, bilaterally. 19:15 ENT: External ear(s): are unremarkable, Nose: is normal, Mouth: Lips: moist, Oral mucosa: pink and intact, moist, Posterior pharynx: Airway: no evidence of obstruction, patent. 19:15 Chest/axilla: Inspection: normal. 19:15 Cardiovascular: Rate: normal, Rhythm: regular. 19:15 Respiratory: the patient does not display signs of respiratory distress, Respirations: normal, no use of accessory muscles, no retractions, labored breathing, is not present, Breath sounds: are clear throughout, no decreased breath sounds, no stridor, no wheezing. 19:15 Abdomen/GI: Inspection: abdomen appears normal, Bowel sounds: active, all quadrants, Palpation: abdomen is soft and non-tender, in all quadrants. 19:15 Back: pain, is absent, ROM is normal. 19:15 Neuro: Orientation: to person, place \T\ time. Mentation: is normal, Motor: moves all fours, strength is normal, Sensation: is normal. Vital Signs: 18:58 BP 109 / 51; Pulse 66; Resp 18; Temp 97; Pulse Ox 99% ; Pain 0/10; ko1 MDM: 19:06 Patient medically screened. cp 20:15 Data reviewed: vital signs, nurses notes, radiologic studies, plain films. cp 20:15 Counseling: I had a detailed discussion with the patient and/or guardian regarding: the cp historical points, exam findings, and any diagnostic results supporting the discharge/admit diagnosis, radiology results, Patient instructed she may return at any time for reevaluation. ED course: Patient refuses any further testing due to nursing staff having difficulty obtaining blood samples for testing. 09/26 19:06 Order name: Basic Metabolic Panel cp 09/26 19:06 Order name: CBC with Diff 09/26 19:06 Order name: LFT's cp 09/26 19:06 Order name: Magnesium cp 09/26 19:06 Order name: PT-INR cp 09/26 19:06 Order name: Troponin HS cp 09/26 19:06 Order name: XRAY Chest (1 view) cp 09/26 19:06 Order name: EKG; Complete Time: 19:08 cp 09/26 19:06 Order name: Cardiac monitoring cp 09/26 19:06 Order name: EKG - Nurse/Tech cp 09/26 19:06 Order name: IV Saline Lock cp 09/26 19:06 Order name: Labs collected and sent cp 09/26 19:06 Order name: O2 Per Protocol cp 09/26 19:06 Order name: O2 Sat Monitoring cp 09/26 19:06 Order name: Lipase cp 09/26 19:49 Order name: RAD; Complete Time: 20:06 EDMS Administered Medications: No medications were administered Disposition Summary: 09/26/22 20:17 Discharge Ordered Location: Home cp Problem: new cp Symptoms: are resolved cp Condition: Stable cp Diagnosis - Epigastric pain cp Followup: cp - With: Private Physician - When: 2 - 3 days - Reason: Recheck today's complaints Discharge Instructions: - Discharge Summary Sheet cp - Abdominal Pain, Adult cp Forms: - Medication Reconciliation Form cp - Thank You Letter cp - Antibiotic Education cp - Prescription Opioid Use cp Prescriptions: - Protonix 40 mg Oral tablet,delayed release (DR/EC) - take 1 tablet by ORAL route once daily; 10 tablet; Refills: 0, Product cp Selection Permitted - Zofran 4 mg Oral Tablet - take 1 tablet by ORAL route every 12 hours As needed; 20 tablet; Refills: 0, cp Product Selection Permitted Addendum: 09/28/2022 20:24 Co-signature as Attending Physician, Macario Alva MD I agree with the assessment s p4 and plan of care. I reviewed the patient's care provided by the Advanced Practice Provider and agree with the diagnosis and treatment plan. Signatures: Dispatcher [employer] EDMS Oral Duong PA PA cp Yuki Sosa, RN RN ko1 Macario Alva MD MD sp4
[2022-09-26 21:03] VITALS: BP 109/51; TEMP 97; O2SAT 99
== END 2022-09-26 20:39 | disposition home or self-care (01) ==
LOC: ER 18:55
DX: R10.13 Epigastric pain (principal)
CPT/HCPCS: 71045; 99283

== ENCOUNTER 2024-09-28 22:51 | Inpatient (IN) | payer OTHER ==
--- OUTSIDE RECORDS SUMMARY | 2024-09-28 22:56 | XMS REPORT | Continuity of Care Document ---
Author Name Unknown Address [address] [facility]. [address] [place] [address] [facility] Address [address] [place] [address] [address] [place] [address] Care Team Providers Care [employer] Name Role Phone PALOMO ESCOTO Primary Care Physician Unavaila MEHREEN Lucas Attending Clinician Unavailable Mehreen Avilez MD Attending Clinician TANJA KILGORE Attending Clinician Unavailable TANJA KILGORE Attending Clinician Unavailable Mehreen Avilez MD Attending Clinician Doctor Unassigned, [place] Attending Clinician U Sade Caal MD Attending Clinician SADE WALKER Attending Clinician Unavailabl SADE Bhatia Attending Clinician Unavailabl e JULIÁN_GCBZW_Anayala_S Attending Clinician Unavaila TORY Noriega Attending Clinician Unavailable Tory Lóepz Attending Clinician [phone] Unknown, Attending Attending Clinician Unavailab chele Raju_P Attending Clinician Unavailable [email or web address]_Kadiyala_S Admitting Clinician Unavaila char Raju_P Admitting Clinician Unavailable Payers Payer Name Policy Type Policy Number Effective Date Expirati on Date Source [facility] PPO [id number] 2020 00:00:00 [employer] (MEDICARE REPLACEMENT/ADVANTA GE - PPO) [id number] Problems Condition Name Condition Details Condition Category Status Onset Date Resolution Date Last Treatment Date Treating Clinician Comments Source HTN (hypertens ion), benign HTN (hypertens ion), benign Disease Active 11-20 00:00: 00 [facility] Dyslipidem ia Dyslipidem ia Disease Active 11-20 00:00: 00 [facility] Acquired hypothyroi dism Acquired hypothyroi dism Disease Active 11-20 00:00: 00 [facility] Thrombotic disorder Thrombotic disorder Disease Active 08-10 00:00: 00 [facility] Unspecifie d adverse effect of other drug, medicinal and biological substance( 995.29) Unspecifie d adverse effect of other drug, medicinal and biological substance( 995.29) Disease Active 08-10 00:00: 00 [facility] Osteopenia Osteopenia Disease Active 08-10 00:00: 00 [facility] Allergies, Adverse Reactions, Alerts Allergy Name Allergy Type Status Severity Reaction(s) Onset Date Inactive Date Treating Clinician Comments Source Benadryl Allergy Deconges tant Propensi ty to adverse reaction s Active Rash 11-20 00:00: 00 [facility] Codeine Propensi ty to adverse reaction s Active Rash 11-20 00:00: 00 [facility] BENADRYL ALLERGY DECONGES TANT DRUG Active Med Rash 11-20 00:00: 00 [facility] CODEINE DRUG INGREDI Active Med Rash 11-20 00:00: 00 [facility] Social History Social Habit Start Date Stop Date Quantity Comments Source Gender identity [facility] intake 2024-04-12 00:00:00 2024-04-12 00:00:00 Current non-drinker of alcohol (finding) [facility] Alcohol intake 2023-10-06 00:00:00 2023-10-06 00:00:00 Current non-drinker of alcohol (finding) [facility] Tobacco use and exposure 2023-07-31 00:00:00 2023-07-31 00:00:00 Smokeless tobacco non-user [facility] History of Social function 2023-04-07 00:00:00 2023-04-07 00:00:00 [facility] Exposure to SARS-CoV-2 (event) 2022-10-17 00:00:00 2022-10-27 12:03:00 Not sure [facility] Sex assigned at 1945 00:00:00 1945 00:00:00 [facility] Smoking Status Start Date Stop Date Source Never smoked tobacco [facility] Medications Ordered Medication Name Filled Medication Name Start Date Stop Date Current Medication? Ordering Clinician Indication Dosage Frequency Signature (SIG) Comments Components Source empaglifloz in (JARDIANCE) 25 mg Tab tablet 04-12 00:00: 00 Yes [id number] 25mg Take 1 tablet by mouth in the morning. [facility] blood sugar diagnostic (ONETOUCH VERIO TEST STRIPS) strip 04-12 00:00: 00 Yes [id number] USE 1 STRIP TO CHECK GLUCOSE ONCE DAILY [facility] lancets (ONETOUCH DELICA PLUS LANCET) 33 gauge Misc 04-12 00:00: 00 Yes [id number] USE 1 TO CHECK GLUCOSE ONCE DAILY [facility] levothyroxi ne 125 mcg tablet 04-12 00:00: 00 Yes [id number] 125ug Take 1 tablet by mouth every morning. 6 days a week [facility] glipiZIDE 5 mg tablet 04-12 00:00: 00 Yes [id number] 5mg Take 1 tablet by mouth in the morning. [facility] dulaglutide (TRULICITY) 1.5 mg/0.5 mL PnIj 04-12 00:00: 00 Yes [id number] 1.5mg inject 1 Pen under the skin weekly. [facility] TRULICITY 1.5 mg/0.5 mL PnIj 03-31 00:00: 00 04-12 00:00 :00 No [facility] ONETOUCH DELICA PLUS LANCET 33 gauge Misc 5-13 00:00: 00 04-12 00:00 :00 No USE 1 TO CHECK GLUCOSE ONCE DAILY [facility] enalapril 2.5 mg tablet 12 09:57: 53 Yes 1.25mg Take 0.5 tablets by mouth in the morning. [facility] icosapent ethyL (VASCEPA) 1 gram capsule 10-05 09:57: 53 Yes 2g Take 2 capsules by mouth in the morning and 2 capsules in the evening. [facility] isosorbide dinitrate 30 mg tablet 10-05 09:57: 53 Yes 30mg Take 1 tablet by mouth in the morning. [facility] empaglifloz in (JARDIANCE) 25 mg Tab tablet 10-05 00:00: 00 04-12 00:00 :00 No [id number] 25mg Take 1 tablet by mouth in the morning. [facility] isosorbide dinitrate 30 mg tablet 07-31 15:43: 36 Yes 30mg Take 1 tablet by mouth in the morning. [facility] hydrochloro thiazide (ESIDRIX) 12.5 mg capsule 07-31 15:41: 58 07-31 00:00 :00 No 12.5mg Take 1 capsule by mouth in the morning. [facility] ferrous sulfate (IRON) 325 mg (65 mg iron) tablet 07-31 15:41: 33 07-31 00:00 :00 No 325mg Take 325 mg by mouth daily. [facility] icosapent ethyL (VASCEPA) 1 gram capsule 07-31 15:40: 57 Yes 2g Take 2 capsules by mouth in the morning and 2 capsules in the evening. [facility] METOPROLOL TARTRATE ORAL 07-31 15:38: 58 07-31 00:00 :00 No 25mg Take 25 mg by mouth. [facility] enalapril 2.5 mg tablet 07-31 15:38: 17 Yes 1.25mg Take 0.5 tablets by mouth in the morning. [facility] blood sugar diagnostic (ONETOUCH VERIO TEST STRIPS) strip 1-05 00:00: 00 04-12 00:00 :00 No [id number] Use to check blood sugar 1X daily. DX:E11.8 [facility] levothyroxi ne (SYNTHROID) 125 mcg tablet 04-07 19:27: 43 04-07 00:00 :00 No 125ug Take 125 mcg by mouth every morning. [facility] ONETOUCH VERIO REFLECT METER [facility] 04-07 00:00: 00 Yes [id number] Use as directed E11.65 [facility] SITagliptin phos-metfor min (JANUMET XR) 100-1,000 mg per tablet 04-07 00:00: 00 04-12 00:00 :00 No [id number] 1{tbl} Take 1 tablet by mouth in the morning. [facility] glipiZIDE 5 mg tablet 04-07 00:00: 00 04-12 00:00 :00 No [id number] 5mg Take 1 tablet by mouth in the morning. [facility] levothyroxi ne 125 mcg tablet 04-07 00:00: 00 04-12 00:00 :00 No 125ug Take 1 tablet by mouth every morning. 6 days a week [facility] lancets (ONETOUCH DELICA PLUS LANCET) 33 gauge [facility] 12-25 00:00: 00 12-06 00:00 :00 No USE DIRECTED ONCE A DAY TO CHECK BLOOD SUGAR once daily Dx E11.8 [facility] blood sugar diagnostic (ONETOUCH VERIO TEST STRIPS) strip 6 00:00: 00 07-31 00:00 :00 No Use to check blood sugar 1X daily. DX:E11.8 [facility] ONETOUCH VERIO TEST STRIPS strip 5-25 00:00: 00 04-12 00:00 :00 No USE 1 STRIP TO CHECK GLUCOSE ONCE DAILY [facility] ONETOUCH DELICA PLUS LANCET 33 gauge Misc 5-25 00:00: 00 12-25 00:00 :00 No USE DIRECTED ONCE A DAY TO CHECK BLOOD SUGAR [facility] SITagliptin -metformin (JANUMET XR) 100-1,000 mg per tablet 3-07 11:25: 01 09-30 00:00 :00 No Take 1 TAB-CAP/M2 by mouth daily. [facility] glipiZIDE 5 mg tablet 3-07 00:00: 00 04-07 00:00 :00 No [id number] 5mg Take 1 tablet by mouth in the morning. [facility] SITagliptin phos-metfor min (JANUMET XR) 100-1,000 mg per tablet 3- 00:00: 00 04-07 00:00 :00 No [id number] 1{tbl} Take 1 tablet by mouth in the morning. [facility] GLIPIZIDE 5 mg tablet 2-21 00:00: 00 09-30 00:00 :00 No 5mg TAKE 1 TABLET BY MOUTH IN THE MORNING [facility] ONETOUCH DELICA PLUS LANCET 33 gauge [facility] 0 1-10 00:00: 00 12-18 00:00 :00 No Use to check blood sugar 1X daily. DX: E11.65 [facility] glipiZIDE 5 mg tablet 8-31 00:00: 00 09-16 00:00 :00 No [id number] 5mg Take 1 tablet by mouth in the morning. [facility] blood sugar diagnostic (ONETOUCH VERIO TEST STRIPS) strip 6-16 00:00: 00 07-31 00:00 :00 No [id number] Use to check blood sugar 1X daily. DX:E11.8 [facility] ergocalcife rol, vitamin d2, (VITAMIN D2) 50,000 unit capsule 4-27 10:52: 26 Yes [id number] Take 50,000 Units by mouth weekly. [facility] SITagliptin -metformin (JANUMET XR) 100-1,000 mg per tablet 11-20 10:52: 26 Yes Take 1 TAB-CAP/M2 by mouth daily. [facility] ONE TOUCH DELICA 33 gauge Misc 11-20 00:00: 00 08-05 00:00 :00 No [id number] Use as directed E11.65 [facility] glipiZIDE XL 10 mg 24 hr tablet 11-20 00:00: 00 03-26 00:00 :00 No [id number] 10mg Take 1 tablet by mouth daily with breakfast. [facility] JARDIANCE 25 mg Tab 10-15 00:00: 00 Yes 1{tbl} Take 1 tablet by mouth daily. [facility] JARDIANCE 25 mg Tab 10-15 00:00: 00 10-05 00:00 :00 No 25mg Take 1 tablet by mouth in the morning. [facility] metoprolol succinate XL 50 mg 24 hr tablet -16 00:00: 00 Yes 50mg Take 50 mg by mouth at bedtime. [facility] lisinopriL 5 mg tablet -16 00:00: 00 07-31 00:00 :00 No 2.5mg Take 2.5 mg by mouth daily. [facility] aspirin 81 mg tablet 2020-07 08:40: 52 Yes 81mg Take 81 mg by mouth daily. [facility] FERROUS FUMARATE/ T BCOMP&C (SUPER B COMPLEX ORAL) 2020-07 08:40: 52 Yes Take by mouth. [facility] folic acid (FOLVITE) 400 mcg tablet 2020-07 08:40: 52 Yes 400ug Take 400 mcg by mouth daily. [facility] hydrochloro thiazide (ESIDRIX) 12.5 mg capsule 2020-07 08:40: 52 Yes 12.5mg Take 12.5 mg by mouth daily. [facility] rosuvastati n (CRESTOR) 40 mg tablet 2020-07 08:40: 52 Yes 40mg Take 40 mg by mouth at bedtime. [facility] clopidogrel (PLAVIX) 75 mg tablet 2020-07 08:40: 52 Yes 75mg Take 75 mg by mouth daily. [facility] Famotidine (PEPCID RPD) 20 mg TbDL 2020-07 08:40: 52 Yes Take by mouth. [facility] ferrous sulfate (IRON) 325 mg (65 mg iron) tablet 2020-07 08:40: 52 Yes 325mg Take 325 mg by mouth daily. [facility] levothyroxi ne (SYNTHROID) 125 mcg tablet 2020-07 08:40: 52 Yes 125ug Take 125 mcg by mouth every morning. [facility] methylPREDN ISolone (MEDROL, SERA,) 4 mg tablets 2020-07 00:00: 00 07-31 00:00 :00 No [id number] 84mg Take 21 tablets by mouth SEE-INSTRU CTIONS. follow package directions [facility] risedronate (ATELVIA) 35 mg [facility] 2013-0 -15 00:00: 00 07-31 00:00 :00 No 35mg Take 35 mg by mouth weekly. [facility] fluticasone propionate 50 mcg/actuati on nasal spray,suspe nsion fluticasone propionate 50 mcg/actuati on nasal spray,suspe nsion No fluticason e propionate 50 mcg/actuat ion nasal spray,susp ension [facility] Fluzone High-Dose [id number] (PF) 180 mcg/0.5 mL intramuscul ar syringe Fluzone High-Dose (PF) 180 mcg/0.5 mL intramuscul ar syringe No Fluzone High-Dose (PF) 180 mcg/0.5 mL intramuscu lar syringe [facility] Fluzone High-Dose (PF) 180 mcg/0.5 mL intramuscul ar syringe Fluzone High-Dose 2019-20 (PF) 180 mcg/0.5 mL intramuscul ar syringe No Fluzone High-Dose 2019-20 (PF) 180 mcg/0.5 mL intramuscu lar syringe [facility] folic acid 400 mcg tablet Take 1 tablet every day by oral route. folic acid 400 mcg tablet Take 1 tablet every day by oral route. No 1 Q1D folic acid 400 mcg tablet Take 1 tablet every day by oral route. [facility] glimepiride 1 mg tablet glimepiride 1 mg tablet No glimepirid e 1 mg tablet [facility] iron 28 mg-Take 1 tablet PO BID daily iron 28 mg-Take 1 tablet PO BID daily No iron 28 mg-Take 1 tablet PO BID daily [facility] L-Lysine 500 mg tablet Take 1 tablet PO 3 times a week L-Lysine 500 mg tablet Take 1 tablet PO 3 times a week No L-Lysine 500 mg tablet Take 1 tablet PO 3 times a week [facility] lorazepam 0.5 mg tablet Take 1 tablet twice a day by oral route for 14 days. lorazepam 0.5 mg tablet Take 1 tablet twice a day by oral route for 14 days. No 1 BID lorazepam 0.5 mg tablet Take 1 tablet twice a day by oral route for 14 days. [facility] niacin 500 mg tablet Take 1 tablet every day by oral route. niacin 500 mg tablet Take 1 tablet every day by oral route. No 1 Q1D niacin 500 mg tablet Take 1 tablet every day by oral route. [facility] pantoprazol e 20 mg tablet,bria yed release pantoprazol e 20 mg tablet,bria yed release No pantoprazo le 20 mg tablet,del ayed release [facility] ramipril 10 mg capsule ramipril 10 mg capsule No ramipril 10 mg capsule [facility] repaglinide 2 mg tablet repaglinide 2 mg tablet No repaglinid e 2 mg tablet [facility] Restasis 0.05 % eye drops in a dropperette Restasis 0.05 % eye drops in a dropperette No Restasis 0.05 % eye drops in a dropperett e [facility] Super B Complex-Vit lares C take 1 tablet PO daily Super B Complex-Vit lares C take 1 tablet PO daily No Super B Complex-Vi tamin C take 1 tablet PO daily [facility] Immunizations Ordered Immunization Name Filled Immunization Name Date Status Comments Source SARS-COV-2 COVID-19 PFIZER VACCINE 2020-10-08 00:00:00 Completed [facility] SARS-COV-2 COVID-19 PFIZER VACCINE 2020-10-08 00:00:00 Completed [facility] SARS-COV-2 COVID-19 PFIZER VACCINE 2020-10-08 00:00:00 Completed [facility] SARS-COV-2 COVID-19 PFIZER VACCINE 2020-10-08 00:00:00 Completed [facility] SARS-COV-2 COVID-19 PFIZER VACCINE 2020-10-08 00:00:00 Completed [facility] SARS-COV-2 COVID-19 PFIZER VACCINE 2020-10-08 00:00:00 Completed [facility] SARS-COV-2 COVID-19 PFIZER VACCINE 2020-10-08 00:00:00 Completed [facility] SARS-COV-2 COVID-19 PFIZER VACCINE 2020-10-08 00:00:00 Completed [facility] SARS-COV-2 COVID-19 PFIZER VACCINE 2020-10-08 00:00:00 Completed [facility] SARS-COV-2 COVID-19 PFIZER VACCINE 2020-10-08 00:00:00 Completed [facility] SARS-COV-2 COVID-19 PFIZER VACCINE 2020-10-08 00:00:00 Completed [facility] SARS-COV-2 COVID-19 PFIZER VACCINE 2020-10-08 00:00:00 Completed [facility] SARS-COV-2 COVID-19 PFIZER VACCINE 2020-10-08 00:00:00 Completed [facility] SARS-COV-2 COVID-19 PFIZER VACCINE 2020-10-08 00:00:00 Completed [facility] SARS-COV-2 COVID-19 PFIZER VACCINE 2020-09-17 00:00:00 Completed [facility] SARS-COV-2 COVID-19 PFIZER VACCINE 2020-09-17 00:00:00 Completed [facility] SARS-COV-2 COVID-19 PFIZER VACCINE 2020-09-17 00:00:00 Completed [facility] SARS-COV-2 COVID-19 PFIZER VACCINE 2020-09-17 00:00:00 Completed [facility] SARS-COV-2 COVID-19 PFIZER VACCINE 2020-09-17 00:00:00 Completed [facility] SARS-COV-2 COVID-19 PFIZER VACCINE 2020-09-17 00:00:00 Completed [facility] SARS-COV-2 COVID-19 PFIZER VACCINE 2020-09-17 00:00:00 Completed [facility] SARS-COV-2 COVID-19 PFIZER VACCINE 2020-09-17 00:00:00 Completed [facility] SARS-COV-2 COVID-19 PFIZER VACCINE 2020-09-17 00:00:00 Completed [facility] SARS-COV-2 COVID-19 PFIZER VACCINE 2020-09-17 00:00:00 Completed [facility] SARS-COV-2 COVID-19 PFIZER VACCINE 2020-09-17 00:00:00 Completed [facility] SARS-COV-2 COVID-19 PFIZER VACCINE 2020-09-17 00:00:00 Completed [facility] SARS-COV-2 COVID-19 PFIZER VACCINE 2020-09-17 00:00:00 Completed [facility] SARS-COV-2 COVID-19 PFIZER VACCINE 2020-09-17 00:00:00 Completed [facility] SARS-COV-2 COVID-19 PFIZER VACCINE Unknown Completed [facility] SARS-COV-2 COVID-19 PFIZER VACCINE Unknown Completed [facility] SARS-COV-2 COVID-19 PFIZER VACCINE Unknown Completed [facility] SARS-COV-2 COVID-19 PFIZER VACCINE Unknown Completed [facility] SARS-COV-2 COVID-19 PFIZER VACCINE Unknown Completed [facility] SARS-COV-2 COVID-19 PFIZER VACCINE Unknown Completed [facility] SARS-COV-2 COVID-19 PFIZER VACCINE Unknown Completed [facility] SARS-COV-2 COVID-19 PFIZER VACCINE Unknown Completed [facility] SARS-COV-2 COVID-19 PFIZER VACCINE Unknown Completed [facility] SARS-COV-2 COVID-19 PFIZER VACCINE Unknown Completed [facility] SARS-COV-2 COVID-19 PFIZER VACCINE Unknown Completed [facility] SARS-COV-2 COVID-19 PFIZER VACCINE Unknown Completed [facility] SARS-COV-2 COVID-19 PFIZER VACCINE Unknown Completed [facility] SARS-COV-2 COVID-19 PFIZER VACCINE Unknown Completed [facility] Vital Signs Vital Name Observation Time Observation Value Comments S ource Systolic blood pressure 2024-04-12 15:48:00 111 mm[Hg] [facility] Diastolic blood pressure 2024-04-12 15:48:00 67 mm[Hg] [facility] Heart rate 2024-04-12 15:48:00 85 /min [facility] Body height 2024-04-12 15:48:00 170.2 cm [facility] Body weight 2024-04-12 15:48:00 69.128 kg [facility] BMI 2024-04-12 15:48:00 23.87 kg/m2 [facility] Oxygen saturation in Arterial blood by Pulse oximetry 2024-04-12 15:48:00 95 /min [facility] Systolic blood pressure 2023-10-06 14:58:00 129 mm[Hg] [facility] Diastolic blood pressure 2023-10-06 14:58:00 75 mm[Hg] [facility] Heart rate 2023-10-06 14:58:00 76 /min [facility] Body height 2023-10-06 14:58:00 170.2 cm [facility] Body weight 2023-10-06 14:58:00 71.305 kg [facility] BMI 2023-10-06 14:58:00 24.62 kg/m2 [facility] Oxygen saturation in Arterial blood by Pulse oximetry 2023-10-06 14:58:00 98 /min [facility] Systolic blood pressure 2023-07-31 21:17:00 128 mm[Hg] [facility] Diastolic blood pressure 2023-07-31 21:17:00 70 mm[Hg] [facility] Heart rate 2023-07-31 21:17:00 84 /min [facility] Body height 2023-07-31 21:17:00 170.2 cm [facility] Body weight 2023-07-31 21:17:00 71.033 kg [facility] BMI 2023-07-31 21:17:00 24.53 kg/m2 [facility] Oxygen saturation in Arterial blood by Pulse oximetry 2023-07-31 21:17:00 96 /min [facility] Systolic blood pressure 2023-07-01 19:11:00 128 mm[Hg] [facility] Diastolic blood pressure 2023-07-01 19:11:00 72 mm[Hg] [facility] Heart rate 2023-07-01 19:11:00 81 /min [facility] Body height 2023-07-01 19:11:00 170.2 cm [facility] Body weight 2023-07-01 19:11:00 71.169 kg [facility] BMI 2023-07-01 19:11:00 24.57 kg/m2 [facility] Systolic blood pressure 2023-04-07 15:17:00 110 mm[Hg] [facility] Diastolic blood pressure 2023-04-07 15:17:00 63 mm[Hg] [facility] Heart rate 2023-04-07 15:17:00 65 /min [facility] Respiratory rate 2023-04-07 15:17:00 20 /min [facility] Body height 2023-04-07 15:17:00 170.2 cm [facility] Body weight 2023-04-07 15:17:00 70.806 kg [facility] BMI 2023-04-07 15:17:00 24.45 kg/m2 [facility] Oxygen saturation in Arterial blood by Pulse oximetry 2023-04-07 15:17:00 98 /min [facility] Systolic blood pressure 2022-10-27 17:12:00 88 mm[Hg] [facility] Diastolic blood pressure 2022-10-27 17:12:00 55 mm[Hg] [facility] Heart rate 2022-10-27 17:12:00 79 /min [facility] Body temperature 2022-10-27 17:12:00 36.67 Kaya [facility] Body height 2022-10-27 17:12:00 170.2 cm [facility] Body weight 2022-10-27 17:12:00 68.811 kg [facility] BMI 2022-10-27 17:12:00 23.76 kg/m2 [facility] Oxygen saturation in Arterial blood by Pulse oximetry 2022-10-27 17:12:00 98 /min [facility] Systolic blood pressure 2022-09-30 16:47:00 101 mm[Hg] [facility] Diastolic blood pressure 2022-09-30 16:47:00 61 mm[Hg] [facility] Heart rate 2022-09-30 16:47:00 74 /min [facility] Body weight 2022-09-30 16:47:00 69.945 kg [facility] BMI 2022-09-30 16:47:00 24.15 kg/m2 [facility] Oxygen saturation in Arterial blood by Pulse oximetry 2022-09-30 16:47:00 97 /min [facility] Systolic blood pressure 2022-03-26 17:34:00 122 mm[Hg] [facility] Diastolic blood pressure 2022-03-26 17:34:00 58 mm[Hg] [facility] Heart rate 2022-03-26 17:34:00 82 /min [facility] Body height 2022-03-26 17:34:00 170.2 cm [facility] Body weight 2022-03-26 17:34:00 73.483 kg [facility] BMI 2022-03-26 17:34:00 25.37 kg/m2 [facility] Oxygen saturation in Arterial blood by Pulse oximetry 2022-03-26 17:34:00 95 /min [facility] BP Diastolic 2019-05-26 00:00:00 73 mm[Hg] [facility] Height 2019-05-26 00:00:00 67 [in_i] [facility] BMI (Body Mass Index) 2019-05-26 00:00:00 24.5 kg/m2 [facility] BP Systolic 2019-05-26 00:00:00 160 mm[Hg] [facility] Body Weight 2019-05-26 00:00:00 156.6 [lb_av] [facility] Procedures Procedure Date / Time Performed Performing Clinician Source POCT HEMOGLOBIN A1C TEST 2024-04-12 15:53:00 Sul[facility] Avilez [facility] [place] POCT HEMOGLOBIN A1C TEST 2023-10-06 00:00:00 Sulma Avilez [facility] EXTERNAL PROVIDER RECORDS 2023-10-05 05:01:00 Do ctor Unassigned, [place] [facility] EXTERNAL PROVIDER RECORDS 2023-08-12 06:01:00 Do ctor Unassigned, [place] [facility] AUTHORIZATION TO RELEASE PHI TO [facility] 2023-07-31 06:01:00 Doctor Unassigned, [place] [facility] XR HUMERUS 2 VW RIGHT 2023-07-01 19:55:22 Mark Walker [facility] REFERRAL- REQUEST/RESPONSE 2023-06-23 06:01:00 D octor Unassigned, [place] [facility] [place] EXTERNAL PROVIDER RECORDS 2023-04-20 05:01:00 Do ctor Unassigned, [place] [facility] [place] POCT HEMOGLOBIN A1C TEST 2023-04-07 15:21:00 Sulma Avilez [facility] PATIENT QUESTIONNAIRE 2023-04-07 05:01:00 Doctor Unassigned, [place] [facility] [place] PATIENT QUESTIONNAIRE 2022-10-31 05:01:00 Doctor Unassigned, [place] [facility] XR ANKLE 3+ VW RIGHT 2022-10-27 18:07:57 Lorri Hill [facility] XR FOREARM 2 VW RIGHT 2022-10-27 18:07:45 Susie Hill [facility] [place] EXTERNAL PROVIDER RECORDS 2022-10-08 05:01:00 Do ctor Unassigned, [place] [facility] [place] POCT HEMOGLOBIN A1C TEST 2022-09-30 16:56:00 AvilezSulma [facility] CONSENT/REFUSAL FOR DIAGNOSIS AND TREATMENT 2022-09-30 16:42:03 Doctor Unassigned, [place] [facility] [place] EXTERNAL PROVIDER RECORDS 2022-04-29 05:01:00 Do ctor Unassigned, [place] [facility] TYMPANOMETRY 2019-05-26 00:00:00 [facility] Placement of Stent in Cardiac Conduit [facility] Procedure on Back [facility] Hysterectomy [facility] Repair of Umbilical Hernia [facility] Cholecystectomy [facility]roide[facility] Plan of Care Planned Activity Planned Date Details Comments Source Instructions [facility] Encounters Start Date/Time End Date/Time Encounter Type Admission Type Attending Clinicians Care Facility Care Department Encounter ID Source 2024-04-12 11:00:00 2024-04-12 11:38:02 [facility] [id number] [facility] 2024-04-12 11:00:00 2024-04-12 11:38:02 Office Visit Fatmata [facility]?KAITLYNN [facility] MED[facility] OFFICE BU[facility] 1.2.840.114 350.1.13.10 4.2.7.2.686 [id number] 220 [id number] [facility] 2024-01-29 13:40:00 2024-01-29 13:40:00 Outpatient R TANJA KILGORE CHRISTINE [facility] [id number] [facility] 2024-01-25 00:00:00 2024-01-26 08:52:44 Telephone Fatmata [facility] [place]?CHARBrianna [facility] OFF[facility] 1.2.840.114 350.1.13.10 4.2.7.2.686 [id number] 220 [id number] [facility] 2023-12-07 00:00:00 2023-12-07 14:52:42 Refill Fatmata [facility] MEDICAL OFFICE BUILD[facility] 1.2.840.114 350.1.13.10 4.2.7.2.686 [id number] 220 [id number] [facility] 2023-10-06 10:00:00 2023-10-06 11:00:03 Outpatient R FATMATA [facility] [id number] [facility] 2023-10-06 10:00:00 2023-10-06 11:00:03 Office Visit Fatmata [facility]?KAITLYNN [facility] OFFICE BUILDING 1.2.840.114 350.1.13.10 4.2.7.2.686 [id number] 220 [id number] [facility] 2023-10-05 00:00:00 2023-10-05 00:00:00 Orders Only Doctor Unassigned, [place] [facility] 1.2840.114 350.1.13.10 4.2.7.2.686 [id number] [id number] [facility] 2023-08-12 00:00:00 2023-08-12 00:00:00 Orders Only Doctor Unassigned, [place] [facility] 1.2840.114 350.1.13.10 4.2.7.2.686 [id number] [id number] [facility] 2023-07-31 15:00:00 2023-07-31 15:55:18 Outpatient R [facility] [id number] [facility] 2023-07-31 15:00:00 2023-07-31 15:55:18 Office Visit Jyoti [facility]?KAITLYNN [facility] OFFICE BUILDING 1.2.840.114 350.1.13.10 4.2.7.2.686 [id number] [facility] 2023-07-31 00:00:00 2023-07-31 00:00:00 Orders Only Doctor Unassigned, [place] [facility] 1.2840.114 350.1.13.10 4.2.7.2.686 [id number] [id number] [facility] 2023-07-30 00:00:00 2023-07-30 00:00:00 Refill Mehreen Avilez [facility]?KAITLYNN [facility] MED[facility] OFFICE BUILD[facility] 1.840.114 350.1.13.10 4.2.7.2.686 [id number] [facility] 2023-07-01 13:44:43 2023-07-01 23:59:00 Hospital Encounter Sade Walker [facility] MEDICAL OFFICE BUILD[facility] 1.284.114 350.1.13.10 4.2.7.2.686 [id number] [facility] 2023-07-01 13:15:00 2023-07-01 14:05:07 Outpatient [facility] [id number] [facility] 2023-07-01 13:15:00 2023-07-01 14:05:07 Office Visit Sade Walker [facility] MED[facility] OFFICE BU[facility] 1.2840.114 350.1.13.10 4.2.7.2.686 [id number] [facility] 2023-06-23 00:00:00 2023-06-23 00:00:00 Orders Only Doctor Unassigned, [place] [facility] 1.2840.114 350.1.13.10 4.2.7.2.686 [id number] [id number] [facility] 2023-05-23 00:00:00 2023-05-23 00:00:00 Outpatient GC_GCBZW_Ka diyala_S [facility]IV [facility] [id number] [facility] 2023-04-20 00:00:00 2023-04-20 00:00:00 Orders Only Doctor Unassigned, [place] [facility] 1.2.840.114 350.1.13.10 4.2.7.2.686 [id number] [id number] [facility] 2023-04-07 10:00:00 2023-04-07 11:03:23 Office Visit Fatmata [facility]?KAITLYNN [facility] MEDICAL OFFICE BUILDING 1.2.840.114 350.1.13.10 4.2.7.2.686 [id number] 220 [id number] [facility] 2023-04-07 10:00:00 2023-04-07 11:03:23 Outpatient R AVILEZ [facility] [id number] [facility] 2023-04-07 00:00:00 2023-04-07 00:00:00 Orders Only Doctor Unassigned, [place] [facility] 1.2.840.114 350.1.13.10 4.2.7.2.686 [id number] [id number] [facility] 2022-12-18 00:00:00 2022-12-18 00:00:00 Refill Fatmata [facility] MEDICAL OFFICE BUILDING 1.2.840.114 350.1.13.10 4.2.7.2.686 [id number] 220 [id number] [facility] 2022-10-31 00:00:00 2022-10-31 00:00:00 Orders Only Doctor Unassigned, [place] [facility] 1.2840.114 350.1.13.10 4.2.7.2.686 [id number] [id number] [facility] 2022-10-27 12:41:22 2022-10-27 23:59:00 [facility] [id number] [facility] 2022-10-27 12:41:22 2022-10-27 23:59:00 Hospital Encounter Dalton [facility] MEDICAL OFFICE BUILD[facility] 1.840.114 350.1.13.10 4.2.7.2.686 [id number] [facility] 2022-10-27 12:41:22 2022-10-27 23:59:00 Hospital Encounter [place] [facility] MED[facility] OFFICE BUILD[facility] 1.840.114 350.1.13.10 4.2.7.2.686 [id number] [facility] 2022-10-27 12:00:00 2022-10-27 12:45:28 Urgent Care [place] Unknown, Attending [facility] MED[facility] OFFICE BUILD[facility] 1.840.114 350.1.13.10 4.2.7.2.686 [id number] [facility] 2022-10-08 00:00:00 2022-10-08 00:00:00 Orders Only Doctor Unassigned, [place] [facility] 1.0.114 350.1.13.10 4.2.7.2.686 [id number] [id number] [facility] 2022-09-30 11:00:00 2022-09-30 11:29:33 Outpatient R FATMATA [facility] [id number] [facility] 2022-09-30 11:00:00 2022-09-30 11:29:33 Office Visit Fatmata [facility] MEDICAL OFFICE BUILD[facility] 1.0.114 350.1.13.10 4.2.7.2.686 [id number] 220 [id number] [facility] 2022-09-30 00:00:00 2022-09-30 00:00:00 Orders Only Doctor Unassigned, [place] [facility] 1.840.114 350.1.13.10 4.2.7.2.686 [id number] [facility] 2022-09-16 00:00:00 2022-09-16 00:00:00 [facility] MED[facility] OFF[facility] BUILD[facility] 1.2.840.114 350.1.13.10 4.2.7.2.686 [id number] 220 [id number] [facility] 2022-08-05 00:00:00 2022-08-05 00:00:00 [facility]NN [facility] MED[facility] OFFICE BUILDING 1.2.840.114 350.1.13.10 4.2.7.2.686 [id number] [facility] 2022-07-29 00:00:00 2022-07-29 00:00:00 Refill Fatmata [facility] [place] MEDICAL OFFICE BUILDING 1.2.840.114 350.1.13.10 4.2.7.2.686 [id number] 220 [id number] [facility] 2022-04-29 00:00:00 2022-04-29 00:00:00 Orders Only Doctor Unassigned, [place] [facility] 1.2.840.114 350.1.13.10 4.2.7.2.686 [id number] [id number] [facility] 2022-03-26 12:00:00 2022-03-26 13:07:26 Outpatient R FATMATA [facility] [id number] [facility] 2022-03-26 12:00:00 2022-03-26 13:07:26 Office Visit Fatmata [facility] [place] MEDICAL OFFICE BUILDING 1.2.840.114 350.1.13.10 4.2.7.2.686 [id number] 220 [id number] [facility] 2022-03-26 00:00:00 2022-03-26 00:00:00 Telephone Avilez [facility] OFF[facility]ILD[facility] 1.2840.114 350.1.13.10 4.2.7.2.686 [id number] 220 [id number] [facility] 2022-01-09 00:00:00 2022-01-09 00:00:00 Telephone Fatmata [facility] LE[place]DO?KAITLYNN [facility] MEDICAL OFFICE BUILDING 1.2840.114 350.1.13.10 4.2.7.2.686 [id number] 220 [id number] [facility] 2021-12-02 00:00:00 2021-12-02 00:00:00 Telephone [facility] 1.2840.114 350.1.13.10 4.2.7.2.686 [id number] 220 [id number] [facility] 2021-11-20 10:30:00 2021-11-20 11:20:08 Outpatient R FATMATA [facility] [id number] [facility] 2021-11-20 10:30:00 2021-11-20 11:20:08 Office Visit Fatmata [facility] MEDICAL OFFICE BUILDING 1.2840.114 350.1.13.10 4.2.7.2.686 [id number] 220 [id number] [facility] 2021-11-20 00:00:00 2021-11-20 00:00:00 Telephone Fatmata [facility] [place] MEDICAL OFFICE BUILDING 1.2840.114 350.1.13.10 4.2.7.2.686 [id number] 220 [id number] [facility] 2021-11-20 00:00:00 2021-11-20 00:00:00 Orders Only Doctor Unassigned, [place] [facility] 1.2.840.114 350.1.13.10 4.2.7.2.686 [id number] [id number] [facility] 2021-11-20 00:00:00 2021-11-20 00:00:00 [facility]?KAITLYNN [facility] MEDICAL OFFICE BUILD[facility] 1..114 350.1.13.10 4.2.7.2.686 [id number] 220 [id number] [facility] 2021-11-20 00:00:00 2021-11-20 00:00:00 [facility] MEDICAL OFFICE BUILD[facility] 1..114 350.1.13.10 4.2.7.2.686 [id number] 220 [id number] [facility] 2021-07-16 00:00:00 2021-07-16 00:00:00 Orders Only Doctor Unassigned, [place] [facility] 1.2840.114 350.1.13.10 4.2.7.2.686 [id number] [id number] [facility] 2021-06-27 00:00:00 2021-06-27 00:00:00 Orders Only Doctor Unassigned, [place] [facility] 1.2840.114 350.1.13.10 4.2.7.2.686 [id number] [id number] [facility] 2021-06-13 00:00:00 2021-06-13 00:00:00 Orders Only Doctor Unassigned, [place] [facility] 1.2840.114 350.1.13.10 4.2.7.2.686 [id number] [facility] 2021-05-30 09:05:00 2021-05-30 23:59:00 Hospital Encounter Walker Sade Lawanda [facility] MEDICAL OFFICE BUILDING 1.284.114 350.1.13.10 4.2.7.2.686 [id number] [facility] 2021-05-30 09:00:00 2021-05-30 09:46:30 Outpatient R SADE WALKER [facility] [id number] [facility] 2021-05-30 09:00:00 2021-05-30 09:46:30 Outpatient R SADE WALKER [facility] [id number] [facility] 2021-05-30 08:39:39 2021-05-30 09:46:30 Office Visit Sade Walker [facility]?KAIT[facility]NN [facility] MED[facility] OFFICE BUILD[facility] 1..840.114 350.1.13.10 4.2.7.2.686 [id number] [facility] 2021-05-30 00:00:00 2021-05-30 00:00:00 Orders Only Doctor Unassigned, [place] [facility] 1..840.114 350.1.13.10 4.2.7.2.686 [id number] [id number] [facility] 2020-06-13 02:44:00 2020-06-13 02:44:00 Outpatient Saul_P [facility] [id number] [facility] 2019-05-26 00:00:00 2019-05-26 00:00:00 Valarie Hughes MD: [address] [place] [address], [address], [place] [address] , Ph. [facility] [place] - Otolaryngol ogy-MOB [id number] [facility] Results Test Description Test Time Test Comments Results Result Co mments Source [facility] Hemoglobin A1C [id number] 15:03:00* Test Item Value Reference Range Interpretation Comme [facility] POCT HBA1C (test code = 4548-4) 7.6 % 4-6 A Lab Interpretation (test cod e = 92567-7) Abnormal [facility] Hemoglobin A1C [id number] 15:03:00* Test Item Value Reference Range Interpretation Comme [facility] POCT HBA1C (test code = 4548-4) 7.6 % 4-6 A Lab Interpretation (test cod e = 89527-5) Abnormal [facility] HEMOGLOBIN A1C [id number] 15:21:00* Test Item Value Reference Range Interpretation Comme nts POCT HBA1C (test code = 4548-4) 7.9 % 4-6 A Lab Interpretation (test cod e = 10299-9) Abnormal [facility] HEMOGLOBIN A1C [id number] 15:21:00* Test Item Value Reference Range Interpretation Comme nts POCT HBA1C (test code = 4548-4) 7.9 % 4-6 A Lab Interpretation (test cod e = 87040-8) Abnormal [facility] HEMOGLOBIN A1C [id number] 16:58:00* Test Item Value Reference Range Interpretation Comme nts POCT HBA1C (test code = 4548-4) 7.6 % 4-6 A Lab Interpretation (test cod e = 47721-0) Abnormal [facility] HEMOGLOBIN A1C [id number] 16:58:00* Test Item Value Reference Range Interpretation Comme nts POCT HBA1C (test code = 4548-4) 7.6 % 4-6 A Lab Interpretation (test cod e = 99042-4) [facility] 14:04:56* Test Item Value Reference Range Interpretation Comme nts Right (test code = Right) Type C Peak is on Left Left (test code = Left) Type C Peak is on Left [facility] Notes Date/Time Note Provider Source 2024-01-26 08:51:50 Called patient and notified of physician orders. Patient states she has f/u with Dr. Avilez in March, but she will contact Dr. Escoto in the meantime for adjustments. No further questions at this time. Patient agreed with plan of care. Kaya Vizcarra RN [facility] 2024-01-25 18:45:02 Then have patient talk to Dr. Escoto to change Mounjaro to alternative agent since he was the one changed her medication If patient want me to change her medication, patient need to be seen per [facility] policy. Then she need to be on wait list Her last appointment was in 09/2023 Mehreen Avilez MD Division of Endocrinology and Metabolism T [facility] 2024-01-25 14:30:49 Patient is currently taking glipizide, jardiance and mounjaro. Patient stopped janumet when she started mounjaro. Please review and advise. Patient mentioned insurance would not continue to cover mounjaro. Pina Zhang RN [facility] 2024-01-25 13:26:11 Did she continue taking Jardiance? If not. She will need to be seen in clinic. Place her on wait list or sooner appointment with [facility] Mehreen Avilez MD Division of Endocrinology and Metabolism T [facility] 2024-01-25 11:47:18 Patient is concerned with how much her blood sugar has been fluctuating lately. Patient states she started the mounjaro December [address] Escoto took her off the janumet at the same time. Patient states her blood sugars are ranging from the 110s to 240s. Patient is still taking her glipizide as prescribed. Patient denies symptoms of hyperglycemia. Please review and advise. T [facility] 2024-01-25 10:29:45 Angelo Ward is a 78 year old female Pt is calling stating that her BS is very high, as of 1030 pt BS was 221. Pt needs to speak with nurse CYNTHIA Meena Plummer [facility] 2023-12-07 14:50:26 CHELSEA 10/06/2023 NOV YUE ROSADO 33G MIS [facility]
[2024-09-28 23:56] LABS: Absolute Eosinophils 0.1 K/uL (0-0.5); Absolute Lymphocytes (CBC) 2.2 K/uL (0.7-4.9); Absolute Monocytes 0.6 K/uL (0.1-1.3); Absolute Neutrophil 3.6 K/uL (1.8-8.0); Basophils % 0.7 % (0-1.3); Eosinophils % 1.8 % (0-4.4); Hematocrit 44.6 % (36.0-45.0); Hemoglobin 14.7 g/dL (12.0-15.0); Lymphocytes % 33.5 % (15.3-44.8); MCH 28.1 pg (27.0-35.0); MCHC 32.8 g/dL (32.0-36.0); MCV 85.6 fL (80-100); MPV 10.3 fL (7.6-11.3); Monocytes % 8.9 % (3.3-12.3); Neutrophils % 55.1 % (41.7-73.7); Nucleated Red Blood Cells % 0.2 % (0-0); Platelets 199 thou/uL (152-406); RBC Red Blood Cell Count 5.22 M/uL (3.86-4.86); Red Cell Distribution Width 16.7 % (12.1-15.2)
[2024-09-29 00:23] LABS: ALT/SGPT 34 U/L (13-56); AST/SGOT 30 U/L (15-37); Albumin 4.2 g/dL (3.4-5.0); Alkaline Phosphatase 68 U/L (45-117); Anion Gap 8.3 mEq/L (5.0-15.0); BUN Blood Urea Nitrogen 33 mg/dL (7-18); Bicarbonate 27 mEq/L (21-32); Bilirubin Direct < 0.2 mg/dL (0-0.2); Bilirubin Indirect, Calculated 0.3 mg/dL (0.2-0.8); Bilirubin Total 0.5 mg/dL (0.2-1.0); Globulin 4.1 g/dL (2.3-3.5); Glomerular Filtration Rate 70 ml/min (=/>90); Glucose Level 111 mg/dL (74-106); Magnesium 2.5 mg/dL (1.6-2.4); NT PRO-BNP 119 pg/mL (<450); Potassium 4.3 mEq/L (3.5-5.1); Protein, Total 8.3 g/dL (6.4-8.2); Sodium Level 141 mEq/L (136-145)
[2024-09-29] MEDS ORDERED: cloNIDine HCL 0.1 MG TAB ONE (00:27)
[2024-09-29 01:15] LABS: PT Prothrombin Time 10.5 SECONDS (10.0-13.0); PTT, Activated Partial Thromb 32.5 SECONDS (24.3-36.9); Protime INR 0.92
--- NOTE | 2024-09-29 01:35 | EDPHYS ---
Physician Documentation [facility] Name: Sherice Ward Age: 79 yrs Sex: Female : 1945 Arrival Date: 09/28/2024 Time: 22:51 Bed 15 Private MD: ED Physician Macario Alva HPI: 09/28 22:59 This 79 yrs old Female presents to ER via Unassigned with complaints of Chest sp4 Pain. 09/29 03:49 This is a 59-year-old female with past medical history of coronary artery disease and 1 sp4 stent presents with acute onset of midsternal chest pain starting today with physical exertion. Patient's medications include Jardiance 25 mg daily, glipizide 5 mg daily, icosapent daily isosorbide 30 mg daily, clopidogrel 75 mg daily, metoprolol 50 mg p.m. Crestor 40 mg daily enalapril 25 mg daily, Synthroid 75 mcg daily, magnesium 400 mg daily, D3 daily, folate 800 mg daily, multivitamin daily, aspirin 81 mg daily. Historical: - Allergies: 09/28 23:01 Codeine; vc1 - Home Meds: 23:01 Jardiance 25 mg oral tablet every morning [Active]; icosapent ethyl 1 gram oral capsule vc1 2 caps 2 times per day [Active]; isosorbide dinitrate 30 mg Oral tablet daily [Active]; clopidogrel 75 mg oral tablet daily [Active]; metoprolol succinate 50 mg oral Tablet, Extended Release 24 hr nightly [Active]; rosuvastatin 40 mg oral tablet nightly [Active]; enalapril maleate 2.5 mg Oral tablet 0.5 tabs daily [Active]; levothyroxine 75 mcg tablet daily [Active]; Mounjaro 2.5 mg/0.5 mL subcutaneous Pen Injector every week [Active]; 23:12 magnesium 200 mg oral tablet 2 tabs daily [Active]; vitamin D3 25 mcg [Active]; folate vc1 800 mcg [Active]; multivitamin oral tablet 1 tab daily [Active]; aspirin 81 mg Oral tablet,chewable daily [Active]; Super B complex daily [Active]; - PMHx: 23:01 Diabetes - NIDDM; High Cholesterol; Hypertension; Hypothyroidism; Myocardial infarction;vc1 - PSHx: 23:01 partial thyroidectomy (Myocardial infarction); Total abdominal hysterectomy; vc1 - Immunization history:: Client reports having NOT received the Covid vaccine. - Infectious Disease History:: Denies. - Social history:: Smoking status: Patient denies any tobacco usage or history of. - Family history:: not pertinent. ROS: 09/29 03:49 Constitutional: Negative for fever, chills, and weight loss, positive for midsternal sp4 chest pain All other systems are negative, Exam: 03:49 Constitutional: This is a well developed, well nourished patient who is awake, alert, sp4 and in no acute distress. Head/Face: Normocephalic, atraumatic. Eyes: Pupils equal round and reactive to light, extra-ocular motions intact. Lids and lashes normal. Conjunctiva and sclera are not injected. Cornea within normal limits. Periorbital areas with no swelling, redness, or edema. ENT: Nares patent. No nasal discharge, no septal abnormalities noted. Tympanic membranes are normal and external auditory canals are clear. Oropharynx with no redness, swelling, or masses, exudates, or evidence of obstruction, uvula midline. Mucous membranes moist. Neck: Trachea midline, no thyromegaly or masses palpated, and no cervical lymphadenopathy. Supple, full range of motion without nuchal rigidity, or vertebral point tenderness. Chest/axilla: Normal chest wall appearance and motion. Nontender with no deformity. No lesions are appreciated. Cardiovascular: Regular rate and rhythm with a normal S1 and S2. No gallops, murmurs, or rubs. Normal PMI, no JVD. No pulse deficits. Respiratory: Lungs have equal breath sounds bilaterally, clear to auscultation and percussion. No rales, rhonchi or wheezes noted. No increased work of breathing, no retractions or nasal flaring. Abdomen/GI: Soft, with normal bowel sounds. No distension or tympany. No guarding or rebound. No evidence of tenderness throughout. Back: No spinal tenderness. No costovertebral tenderness. Skin: Warm, dry with normal turgor. Normal color with no rashes, no lesions, and no evidence of cellulitis. MS/ Extremity: Pulses equal, no cyanosis. Neurovascular intact. Full, normal range of motion. Neuro: Awake and alert, GCS 15, oriented to person, place, time, and situation. Cranial nerves II-XII grossly intact. Motor strength 5/5 in all extremities. Sensory grossly intact. Psych: Awake, alert, with orientation to person, place and time. Behavior, mood, and affect are within normal limits 03:49 ECG was reviewed by the Attending Physician. EKG at 0 136 sinus rhythm rate 70, Vital Signs: 09/28 22:59 BP 214 / 94; Pulse 77; Resp 14; Temp 98.2; Pulse Ox 96% ; Weight 66.68 kg; Height 5 ft. vc1 7 in. ; Pain 0/10; 09/29 00:30 BP 187 / 79; Pulse 77; Resp 16; Pulse Ox 98% on R/A; dd2 01:30 BP 141 / 69; Pulse 69; Resp 16; Pulse Ox 95% on R/A; dd2 02:00 BP 134 / 64; Pulse 70; Resp 16; Pulse Ox 96% on R/A; dd2 03:00 BP 131 / 66; Pulse 65; Resp 15; Pulse Ox 94% on R/A; dd2 04:00 BP 127 / 67; Pulse 64; Resp 16; Temp 98.4; Pulse Ox 95% on R/A; dd2 09/28 22:59 Body Mass Index 23.02 (66.68 kg, 170.18 cm) vc1 09/28 22:59 Pain Scale: Adult vc1 [place] Coma Score: 00:25 Eye Response: spontaneous(4). Motor Response: obeys commands(6). Verbal Response: dd2 oriented(5). Total: 15. 03:49 Eye Response: spontaneous(4). Motor Response: obeys commands(6). Verbal Response: sp4 oriented(5). Total: 15. MDM: 01:17 Medical Screening Exam initiated sp4 03:53 Differential diagnosis: acute myocardial infarction, acute pericarditis, anxiety, sp4 coronary artery disease chest wall pain, congestive heart failure cholecystitis. HEART Score: History: Moderately Suspicious (1), ECG: Non specific repolarization disturbance / LBTB / PM (1), Age: > or = 65 years (2), Risk Factors: > or = 3 Risk factors for atherosclerotic disease (2), Troponin: > 1 and < 3 x normal limit (1), Total Score = 6. The patient was not given aspirin in the Emergency Department. Patient reports taking aspirin within the past 24 hours. Data reviewed: vital signs, nurses notes, old medical records, lab test result(s), EKG, radiologic studies, plain films. ED course: EKG 2305 initial EKG 2303 normal sinus rhythm rate 69 left axis deviation, no ST elevation or depression. No ectopy.. 09/28 23:00 Order name: Basic Metabolic Panel; Complete Time: 00:24 sp4 09/28 23:00 Order name: CBC with Diff; Complete Time: 00:24 sp4 09/28 23:00 Order name: LFT's; Complete Time: 00:24 sp4 09/28 23:00 Order name: Magnesium; Complete Time: 00:24 sp4 09/28 23:00 Order name: NT PRO-BNP; Complete Time: 00:24 sp4 09/28 23:00 Order name: PT-INR; Complete Time: 03:57 sp4 09/28 23:00 Order name: Troponin HS; Complete Time: 00:24 sp4 09/29 00:10 Order name: TSH; Complete Time: 03:57 sp4 09/29 00:10 Order name: T4 Free; Complete Time: 03:57 sp4 09/29 00:37 Order name: PTT, Activated Partial Thromb; Complete Time: 03:57 EDMS 09/29 02:36 Order name: Basic Metabolic Panel; Complete Time: 01:03 EDMS 09/29 02:36 Order name: CBC with Automated Diff; Complete Time: 01:03 EDMS 09/29 02:36 Order name: Lipid Profile EDMS 09/29 02:36 Order name: Lipid Profile; Complete Time: 01:03 EDMS 09/29 02:36 Order name: Troponin High Sensitivity EDMS 09/29 02:36 Order name: Troponin High Sensitivity; Complete Time: 01:03 EDMS 09/29 02:36 Order name: Troponin High Sensitivity; Complete Time: 01:03 EDMS 09/29 02:36 Order name: Troponin High Sensitivity; Complete Time: 01:03 EDMS 09/29 07:51 Order name: PTT, Activated Partial Thromb; Complete Time: 01:03 EDMS 09/29 09:24 Order name: Glucose, Ancillary Testing; Complete Time: 01:03 EDMS 09/28 23:00 Order name: XRAY Chest (1 view); Complete Time: 01:03 sp4 09/29 02:36 Order name: Echo with Doppler EDPR 09/28 23:00 Order name: EKG; Complete Time: 23: sp4 09/29 02:36 Order name: CONS Physician Consult EDPR 09/28 23:00 Order name: Cardiac monitoring; Complete Time: 02:30 sp4 09/28 23:00 Order name: EKG - Nurse/Tech; Complete Time: 23:18 sp4 09/28 23:00 Order name: IV Saline Lock; Complete Time: 02:30 sp4 09/28 23:00 Order name: Labs collected and sent; Complete Time: 02:30 sp4 09/28 23:00 Order name: O2 Per Protocol; Complete Time: 02:30 sp4 09/28 23:00 Order name: O2 Sat Monitoring; Complete Time: 02:30 sp4 EC:36 Rate is 70 beats/min. Rhythm is irregular, Sinus Rhythm with PACs. QRS [place] is Normal. sp4 [place] interval is normal. QRS interval is normal. QT interval is normal. No Q waves. T waves are Normal. No ST changes noted. Clinical impression: No evidence of ischemia. Interpreted by me. Reviewed by me. Administered Medications: 00:32 Drug: cloNIDine PO 0.2 mg PO once Route: PO; dd2 01:02 Follow up: Response: No adverse reaction dd2 01:56 Drug: HEParin IV 5000 units IV at bolus once {Co-Signature: vc1 (Kaya Morton RN).} dd2 Route: IV; Rate: bolus; Site: right forearm; 02:11 Follow up: Response: No adverse reaction dd2 04:18 Follow up: IV Status: Infusion continued upon admission dd2 02:00 Drug: Heparin ([place] Drip) 12 units/kg/[place] - ([place] [address] units, D5W IV 500 ml) IV at dd2 calculated rate Per protocol; Max initial rate 1000 units/hr {Co-Signature: vc1 (Kaya Morton RN).} Route: IV; Rate: calculated rate; Site: right forearm; 02:15 Follow up: Response: No adverse reaction dd2 04:18 Follow up: IV Status: Infusion continued upon admission dd2 Disposition Summary: 09/29/24 01:34 Hospitalization Ordered Notes: Hospitalization Status: Inpatient Admission sp4 Provider: Humble Rausch sp4 Condition: Fair sp4 Problem: new sp4 Symptoms: have improved sp4 Bed/Room Type: Standard sp4 Location: Telemetry/MedSurg (Inpatient)(09/29/24 11:19) [facility] Room Assignment: 220(09/29/24 11:19) [facility] Diagnosis - NSTEMI , Acute coronary syndrome sp4 Forms: - Medication Reconciliation Form sp4 - SBAR form sp4 - Leadership Thank You Letter sp4 Signatures: Dispatcher [employer] EDMS Kaya Morton, RN RN vc1 Aline Hayes rv1 Shawnee Harris 6 Macario Alva MD MD sp4 NICK SCHOFIELD RN RN dd2 Kaya Morton RN vc1 Corrections: (The following items were deleted from the chart) 00:37 00:25 PTT, ACTIVATED+COAG.LAB.BRZ ordered. EDMS EDMS 02:55 01:34 Telemetry/MedSurg (Inpatient) sp4 rv1 02:55 01:34 sp4 rv1 03:14 02:36 Troponin High Sensitivity ordered. EDMS EDMS 11:19 02:55 [facility] ER HOLD rv1 bc6 11:19 02:55 ERHOLD- rv1 bc6
--- NOTE | 2024-09-29 01:35 | ER ---
Nurse's Notes [facility] Name: Sherice Ward Age: 79 yrs Sex: Female : 1945 Arrival Date: 09/28/2024 Time: 22:51 Bed 15 Private MD: Diagnosis: NSTEMI , Acute coronary syndrome Presentation: 09/28 22:59 Chief complaint: Patient states: Intermittent chest pain that started around 1 pm. vc1 Coronavirus screen: Client denies travel out of the [place] in the last 14 days. At this time, the client does not indicate any symptoms associated with coronavirus-19. Ebola Screen: Patient negative for fever greater than or equal to 101.5 degrees Fahrenheit, and additional compatible Ebola Virus Disease symptoms Patient denies exposure to infectious person. Patient denies travel to an Ebola-affected area in the 21 days before illness onset. No symptoms or risks identified at this time. Initial Sepsis Screen: Does the patient meet any 2 criteria? No. Patient's initial sepsis screen is negative. Does the patient have a suspected source of infection? No. Patient's initial sepsis screen is negative. Risk Assessment: Do you want to hurt yourself or someone else? Patient reports no desire to harm self or others. Onset of symptoms was September 28, 2024 at 13:00. Care prior to arrival: None. Activity prior to arrival: None. 22:59 Method Of Arrival: Ambulatory vc1 22:59 Acuity: SHELBY 3 vc1 Historical: - Allergies: 23:01 Codeine; vc1 - Home Meds: 23:01 Jardiance 25 mg oral tablet every morning [Active]; icosapent ethyl 1 gram oral capsule vc1 2 caps 2 times per day [Active]; isosorbide dinitrate 30 mg Oral tablet daily [Active]; clopidogrel 75 mg oral tablet daily [Active]; metoprolol succinate 50 mg oral Tablet, Extended Release 24 hr nightly [Active]; rosuvastatin 40 mg oral tablet nightly [Active]; enalapril maleate 2.5 mg Oral tablet 0.5 tabs daily [Active]; levothyroxine 75 mcg tablet daily [Active]; Mounjaro 2.5 mg/0.5 mL subcutaneous Pen Injector every week [Active]; 23:12 magnesium 200 mg oral tablet 2 tabs daily [Active]; vitamin D3 25 mcg [Active]; folate vc1 800 mcg [Active]; multivitamin oral tablet 1 tab daily [Active]; aspirin 81 mg Oral tablet,chewable daily [Active]; Super B complex daily [Active]; - PMHx: 23:01 Diabetes - NIDDM; High Cholesterol; Hypertension; Hypothyroidism; Myocardial infarction;vc1 - PSHx: 23:01 partial thyroidectomy (Myocardial infarction); Total abdominal hysterectomy; vc1 - Immunization history:: Client reports having NOT received the Covid vaccine. - Infectious Disease History:: Denies. - Social history:: Smoking status: Patient denies any tobacco usage or history of. - Family history:: not pertinent. Screenin/06 00:25 [facility] ED Fall Risk Assessment (Adult) History of falling in the last 3 months, dd2 including since admission No falls in past 3 months (0 pts) Confusion or Disorientation No (0 pts) Intoxicated or Sedated No (0 pts) Impaired Gait No (0 pts) Mobility Assist Device Used No (0 pt) Altered Elimination No (0 pt) Score/Fall Risk Level 0 - 2 = Low Risk Oriented to surroundings, Maintained a safe environment, Educated pt \T\ family on fall prevention, incl call for assistance when getting out of bed, Assessed \T\ reinforced patient's understanding of fall precautions, Hourly rounding (assess needs \T\ fall precautionary measures) done. Abuse screen: Denies threats or abuse. Denies injuries from another. Nutritional screening: No deficits noted. Tuberculosis screening: No symptoms or risk factors identified. Assessment: 00:25 General: Appears in no apparent distress. uncomfortable, Behavior is calm, cooperative, dd2 appropriate for age. Pain: Complains of pain in xiphoid area and mid-sternal area Pain does not radiate. Pain currently is 3 out of 10 on a pain scale. Pain began 1 PM. Neuro: No deficits noted. [place] Agitation-Sedation Scale (RASS): 0 - Alert and Calm Level of Consciousness is awake, alert, obeys commands, Oriented to person, place, time, situation, Appropriate for age. Cardiovascular: Reports chest pain, Heart tones S1 S2 present Patient's skin is warm and dry. Rhythm is sinus rhythm Chest pain is described as mild, is located in substernal area began 1 PM. Respiratory: No deficits noted. Airway is patent Respiratory effort is even, unlabored, Respiratory pattern is regular, symmetrical. GI: No deficits noted. No signs and/or symptoms were reported involving the gastrointestinal system. : No deficits noted. No signs and/or symptoms were reported regarding the genitourinary system. EENT: No deficits noted. No signs and/or symptoms were reported regarding the EENT system. Derm: No deficits noted. No signs and/or symptoms reported regarding the dermatologic system. Musculoskeletal: No deficits noted. No signs and/or symptoms reported regarding the musculoskeletal system. Circulation, motion, and sensation intact. Range of motion: intact in all extremities. Vital Signs: 09/28 22:59 BP 214 / 94; Pulse 77; Resp 14; Temp 98.2; Pulse Ox 96% ; Weight 66.68 kg; Height 5 ft. vc1 7 in. ; Pain 0/10; 09/29 00:30 BP 187 / 79; Pulse 77; Resp 16; Pulse Ox 98% on R/A; dd2 01:30 BP 141 / 69; Pulse 69; Resp 16; Pulse Ox 95% on R/A; dd2 02:00 BP 134 / 64; Pulse 70; Resp 16; Pulse Ox 96% on R/A; dd2 03:00 BP 131 / 66; Pulse 65; Resp 15; Pulse Ox 94% on R/A; dd2 04:00 BP 127 / 67; Pulse 64; Resp 16; Temp 98.4; Pulse Ox 95% on R/A; dd2 09/28 22:59 Body Mass Index 23.02 (66.68 kg, 170.18 cm) vc1 09/28 22:59 Pain Scale: Adult vc1 [place] Coma Score: 00:25 Eye Response: spontaneous(4). Motor Response: obeys commands(6). Verbal Response: dd2 oriented(5). Total: 15. 03:49 Eye Response: spontaneous(4). Motor Response: obeys commands(6). Verbal Response: sp4 oriented(5). Total: 15. ED Course: 09/28 22:57 Patient arrived in ED. gm2 22:59 Macario Alva MD is Attending Physician. sp4 23:01 Triage completed. vc1 23:11 Arm band placed on right wrist. vc1 23:17 Kaya Morton RN is Primary Nurse. vc1 23:34 Inserted saline lock: 24 gauge in right antecubital area, using aseptic technique. kmf Blood collected. Flushed with 10 mL NS. 23:46 XRAY Chest (1 view) In Process Unspecified. EDMS 03/06 00:25 Patient has correct armband on for positive identification. Bed in low position. Call dd2 light in reach. Side rails up X 1. Client placed on continuous cardiac and pulse oximetry monitoring. NIBP monitoring applied. shelter monitor on. Door closed. Noise minimized. Warm blanket given. Pillow given. Verbal reassurance given. 00:25 No provider procedures requiring assistance completed. Initial lab(s) drawn, by ED dd2 staff, sent to lab. EKG done, by ED staff, reviewed by Macario Alva MD. Patient maintains SpO2 saturation greater than 95% on room air. 01:34 Humble Rausch MD is Hospitalizing Provider. sp4 12:07 Provided Education on: Need for admit.. cm10 12:07 Patient admitted, IV remains in place. cm10 Administered Medications: 00:32 Drug: cloNIDine PO 0.2 mg PO once Route: PO; dd2 01:02 Follow up: Response: No adverse reaction dd2 01:56 Drug: HEParin IV 5000 units IV at bolus once {Co-Signature: vc1 (Kaya Morton RN).} dd2 Route: IV; Rate: bolus; Site: right forearm; 02:11 Follow up: Response: No adverse reaction dd2 04:18 Follow up: IV Status: Infusion continued upon admission dd2 02:00 Drug: Heparin ([place] Drip) 12 units/kg/[place] - ([place] [address] units, D5W IV 500 ml) IV at dd2 calculated rate Per protocol; Max initial rate 1000 units/hr {Co-Signature: vc1 (Kaya Morton RN).} Route: IV; Rate: calculated rate; Site: right forearm; 02:15 Follow up: Response: No adverse reaction dd2 04:18 Follow up: IV Status: Infusion continued upon admission dd2 Medication: 00:25 VIS not applicable for this client. dd2 Outcome: 01:34 Decision to Hospitalize by Provider. sp4 12:07 Admitted to [facility] accompanied by nurse, via wheelchair, cm10 12:07 Condition: good 12:07 Instructed on the need for admit, 12:08 Patient left the ED. cm10 Signatures: Dispatcher [employer] EDMS Kaya Morton RN RN vc1 Macario Alva MD MD sp4 Melody Garcia RN RN cm10 Abbey Hauser 2 Fara Prescott NICK SCHOFIELD RN RN dd2 Kaya Morton RN vc1
[2024-09-29] MEDS ORDERED: HEPARIN 5000 UNIT/ML 1 ML VIAL ONE ×2 (01:45→11:58)
[2024-09-29] MEDS ORDERED: HEPARIN/D5W 25,000 UNIT/500 ML BAG IV ONE (01:46)
[2024-09-29] MEDS ORDERED: ZOLPIDEM TARTRATE 5 MG TABLET PO PRN (02:28)
[2024-09-29] MEDS ORDERED: NITROGLYCERIN 0.4 MG/TAB SL PRN (02:28)
[2024-09-29] MEDS ORDERED: MORPHINE 4 MG/ML SYR IV PRN (02:28)
[2024-09-29] MEDS ORDERED: ALPRAZOLAM 0.25 MG TABLET PO PRN (02:28)
[2024-09-29 02:32] LABS: Thyroid Stimulating Hormone 1.85 uIU/mL (0.358-3.740)
--- NOTE | 2024-09-29 02:40 | P.HP ---
Certification for Inpatient With expected LOS: >2 Midnights Practitioner: I am a practitioner with admitting privileges, knowledge of patient current condition, hospital course, and medical plan of care. Services: Services provided to patient in accordance with Admission requirements found in Title 42 Section 412.3 of the Code of Federal Regulations Patient History Date of Service: 09/29/24 Reason for admission: Chest pain History of Present Illness: 79-year-old female with a past medical history of CAD status post 1 stent, diabetes, hypothyroidism, hypercholesterolemia presenting with chest pain. She states she was packing up for her garage sale earlier today. Around 1:00 she began to have chest pain. She sat down which relieves some of the pain. Around 6:30 in the evening her pain worsened. She denies any other symptoms. She denies being around any sick contacts. In addition she states her blood sugar has been running high over the last few weeks. She is not a smoker she takes her medications daily. She rates the chest pain on 8 out of 10 she states she saw her head of ict 3 weeks ago. She did not have any chest pain at the time. She denies any illicit drug use Allergies codeine [Codeine] Allergy (Mild, Verified 01/18/19 10:06) Itching/Hives/Rash Home Medications: Aspirin [Aspirin EC 81 MG] 81 mg PO DAILY 01/18/19 Cholecalciferol (Vitamin D3) [Vitamin D3] 2,000 unit PO DAILY 01/18/19 Clopidogrel Bisulfate [Plavix] 75 mg PO DAILY 01/18/19 Empagliflozin [Jardiance] 25 mg PO EVERY 3RD DAY 01/18/19 Iron 27 mg PO DAILY 01/18/19 Levothyroxine [Synthroid] 125 mcg PO [id number] 01/18/19 Magnesium Oxide [Magnesium] 500 mg PO DAILY 01/18/19 Metoprolol Succinate [Toprol Xl] 25 mg PO BID 01/18/19 Multivitamin [Multivitamins] 1 each PO DAILY 01/18/19 Pantoprazole [Protonix Tab] 40 mg PO DAILY 01/18/19 Repaglinide 2 mg PO TID 01/18/19 Rosuvastatin [Crestor*] 20 mg PO BEDTIME 01/18/19 Sitagliptin Phos/Metformin HCl [Janumet Xr 100-1,000 mg Tablet] 1 each PO DAILY 01/18/19 Sulfamethoxazole/Trimethoprim [Bactrim Ds Tablet] 1 each PO BID #10 tablet 01/19/19 Tramadol HCl/Acetaminophen [Ultracet Tablet] 1 each PO Q4H PRN #30 tablet 01/19/19 Review of Systems 10-point ROS is otherwise unremarkable General: As per HPI Cardiovascular: Chest Pain Physical Examination - Physical Exam General: Alert, In no apparent distress HEENT: Atraumatic, Normocephalic Neck: Supple Respiratory: Clear to auscultation bilaterally, Normal air movement Cardiovascular: No edema, Normal pulses Capillary refill: <2 Seconds Gastrointestinal: Normal bowel sounds Musculoskeletal: No clubbing, No swelling Integumentary: No rashes, No breakdown Neurological: Normal gait, Normal speech - Studies Laboratory Data (last 24 hrs) 09/29/24 09/28/24 09/28/24 00:25 23:30 23:30 WBC 6.60 Hgb 14.7 Hct 44.6 Plt Count 199 PT 10.5 INR 0.92 APTT Cancelled 32.5 Sodium Potassium BUN Creatinine Glucose Magnesium Total Bilirubin AST ALT Alkaline Phosphatase 09/28/24 23:30 WBC Hgb Hct Plt Count PT INR APTT Sodium 141 Potassium 4.3 BUN 33 H Creatinine 0.85 Glucose 111 H Magnesium 2.5 H Total Bilirubin 0.5 AST 30 ALT 34 Alkaline Phosphatase 68 Assessment and Plan - Plan NSTEMI Hypertension Diabetes Hypercholesterolemia Hypothyroidism CAD Continue to trend troponin Placed on heparin drip, asked, beta-rj, Crestor, morphine, nitroglycerin as needed Consult cardiology Continue levothyroxine Xanax as needed - Advance Directives Does patient have a Living Will: No Does patient have a Durable POA for Healthcare: No
[2024-09-29 05:33] VITALS: BMI 22.8
--- NOTE | 2024-09-29 05:45 | RAD REPORT ---
EXAM: XR Chest, 1 View CLINICAL HISTORY: The patient is 79 years old and is Female; CHEST PAIN TECHNIQUE: Frontal view of the chest. COMPARISON: No relevant prior studies available. FINDINGS: LUNGS: Unremarkable. No consolidation. PLEURAL SPACE: Unremarkable. No pneumothorax. HEART: Unremarkable. No cardiomegaly. MEDIASTINUM: Unremarkable. Normal mediastinal contour. BONES/JOINTS: Multilevel degenerative change of the spine is present. No acute fracture. VASCULATURE: Atherosclerosis of the aorta is present. UPPER ABDOMEN: Unremarkable as visualized. IMPRESSION: No acute cardiopulmonary process. Electronically signed by: Deborah Mcginnis MD 09/29/2024 12:[address] [facility] Due to temporary technical issues with the PACS/[employer] reporting system, reports are being marivel d by the in-house radiologist without review as a courtesy to ensure prompt reporting the interpreting radiologist is fully responsible for the content of the report. Transcribed Date/Time: 09/29/2024 5:44 AM
[2024-09-29] MEDS: HEPARIN/D5W 25,000 UNIT/500 ML BAG IV SCH (07:00)
[2024-09-29 07:23] LABS: Absolute Eosinophils 0.1 K/uL (0-0.5); Absolute Lymphocytes (CBC) 2.3 K/uL (0.7-4.9); Absolute Monocytes 0.5 K/uL (0.1-1.3); Absolute Neutrophil 3.1 K/uL (1.8-8.0); Basophils % 0.6 % (0-1.3); Eosinophils % 1.9 % (0-4.4); Hematocrit 39.1 % (36.0-45.0); Hemoglobin 12.7 g/dL (12.0-15.0); Lymphocytes % 37.8 % (15.3-44.8); MCH 27.7 pg (27.0-35.0); MCHC 32.5 g/dL (32.0-36.0); MCV 85.2 fL (80-100); MPV 10.8 fL (7.6-11.3); Monocytes % 8.4 % (3.3-12.3); Neutrophils % 51.3 % (41.7-73.7); Platelets 204 thou/uL (152-406); RBC Red Blood Cell Count 4.58 M/uL (3.86-4.86); Red Cell Distribution Width 16.4 % (12.1-15.2)
[2024-09-29 07:45] LABS: Anion Gap 6.5 mEq/L (5.0-15.0); Potassium 3.5 mEq/L (3.5-5.1)
[2024-09-29 07:48] LABS: Troponin High Sensitivity 89.4 pg/mL (<58.9)
[2024-09-29] MEDS ORDERED: ASPIRIN 81 MG CHEWABLE TABLET ONE (09:36)
[2024-09-29] MEDS ORDERED: CLOPIDOGREL 75 MG TABLET ONE ×2 (09:36→11:58)
[2024-09-29] MEDS: LEVOTHYROXINE SOD 0.125 MG TAB PO SCH (10:20)
[2024-09-29] MEDS: METOPROLOL XL 25 MG TAB PO SCH (10:21)
[2024-09-29] MEDS: CLOPIDOGREL 75 MG TABLET PO SCH (10:21)
[2024-09-29] MEDS: ASPIRIN EC 81 MG TAB PO SCH (10:21)
[2024-09-29] MEDS ORDERED: HEPARIN 10,000 UNIT/10 ML VIAL IV ONE (11:57)
[2024-09-29] MEDS ORDERED: HEPA 1000U/500MLS 2,000 UNIT/1,000 ML BAG IV ONE (11:57)
[2024-09-29] MEDS ORDERED: LIDOCAINE 1% 20 ML MDV ONE (11:57)
[2024-09-29] MEDS ORDERED: TICAGRELOR 90 MG TABLET PO ONE (11:58)
[2024-09-29] MEDS ORDERED: ATROPINE SULF 1 MG/10 ML SYR IV ONE (11:58)
[2024-09-29] MEDS ORDERED: MIDAZOLAM HCL 2 MG/2 ML INJ ONE (11:58)
[2024-09-29] MEDS ORDERED: ASPIRIN 325 MG TAB ONE (11:58)
[2024-09-29] MEDS ORDERED: FENTANYL CITR 100 MCG/2 ML ONE (11:59)
[2024-09-29] MEDS ORDERED: NA CHLORIDE 0.9% 500 ML ONE (12:17)
--- NOTE | 2024-09-29 13:32 | P.CNS ---
Date of Consult: 09/29/24 Chief Complaint: Chest pain History of Present Illness: Patient with PMH of CAD, LAD stent back in 2008, presented with chest pain that happened yesterday, sharp, left sided, happened multiple times, lasting for few minutes, denies any other cardiac symptoms. Allergies codeine [Codeine] Allergy (Mild, Verified 01/18/19 10:06) Itching/Hives/Rash Home medications list reviewed: Yes Home Medications: Aspirin [Aspirin EC 81 MG] 81 mg PO DAILY 01/18/19 Cholecalciferol (Vitamin D3) [Vitamin D3] 2,000 unit PO DAILY 01/18/19 Clopidogrel Bisulfate [Plavix] 75 mg PO DAILY 01/18/19 Empagliflozin [Jardiance] 25 mg PO EVERY 3RD DAY 01/18/19 Iron 27 mg PO DAILY 01/18/19 Levothyroxine [Synthroid] 125 mcg PO [id number] 01/18/19 Magnesium Oxide [Magnesium] 500 mg PO DAILY 01/18/19 Metoprolol Succinate [Toprol Xl] 25 mg PO BID 01/18/19 Multivitamin [Multivitamins] 1 each PO DAILY 01/18/19 Pantoprazole [Protonix Tab] 40 mg PO DAILY 01/18/19 Repaglinide 2 mg PO TID 01/18/19 Rosuvastatin [Crestor*] 20 mg PO BEDTIME 01/18/19 Sitagliptin Phos/Metformin HCl [Janumet Xr 100-1,000 mg Tablet] 1 each PO DAILY 01/18/19 Sulfamethoxazole/Trimethoprim [Bactrim Ds Tablet] 1 each PO BID #10 tablet 01/19/19 Tramadol HCl/Acetaminophen [Ultracet Tablet] 1 each PO Q4H PRN #30 tablet 01/19/19 Review of Systems 10-point ROS is otherwise unremarkable Physical Examination Temp Pulse Resp BP Pulse Ox 98.4 F 71 15 133/54 L 100 09/29/24 04:00 09/29/24 08:00 09/29/24 08:00 09/29/24 08:00 09/29/24 08:00 General: Alert, In no apparent distress HEENT: Atraumatic, PERRLA, Mucous membr. moist/pink, EOMI, Sclerae nonicteric Neck: Supple, 2+ carotid pulse no bruit, No LAD, Without JVD or thyroid abnormality Respiratory: Clear to auscultation bilaterally, Normal air movement Cardiovascular: Regular rate/rhythm, Normal S1 S2 Gastrointestinal: Normal bowel sounds, No tenderness Musculoskeletal: No tenderness Integumentary: No rashes Neurological: Normal gait, Normal speech, Normal tone, Normal affect Lymphatics: No axilla or inguinal lymphadenopathy Laboratory Data (last 24 hrs) 09/29/24 09/28/24 09/28/24 00:25 23:30 23:30 WBC 6.60 Hgb 14.7 Hct 44.6 Plt Count 199 PT 10.5 INR 0.92 APTT Cancelled 32.5 Sodium Potassium BUN Creatinine Glucose Magnesium Total Bilirubin AST ALT Alkaline Phosphatase 09/28/24 23:30 WBC Hgb Hct Plt Count PT INR APTT Sodium 141 Potassium 4.3 BUN 33 H Creatinine 0.85 Glucose 111 H Magnesium 2.5 H Total Bilirubin 0.5 AST 30 ALT 34 Alkaline Phosphatase 68 - Problems (1) NSTEMI (non-ST elevated myocardial infarction) Current Visit: Yes Status: Acute Plan: Patient had mild troponin elevation with typical chest pain so coronary angiogram done that shown patent LAD stent with mild ISR and mild proximal to mid RCA disease (30-40%) patient troponin leak most likely secondary to elevated BP continue ASA 81 mg daily continue Plavix 75 mg daily (2) HTN (hypertension) Current Visit: Yes Status: Acute Plan: continue Toprol XL 25 mg daily recommend adding Norvasc 5 mg daily
[2024-09-29] MEDS: ACETAMINOPHEN 325 MG TABLET ONE (13:56)
--- NOTE | 2024-09-29 13:56 | P.PN ---
Date of Service: 09/29/24 Patient seen and examined. She denies any chest pain at the moment. Troponin trended flat. Blood pressure has improved. Patient seen and evaluated by cardiology Dr. Monge. She has a history of coronary artery disease, cardiac stenting 2008. She reports recent stress test about 3 months ago which was unremarkable. Further management per Dr. Monge. Patient is on aspirin and Plavix which is continued. LDL within normal limits. Continue home dose statin. Blood pressure has improved with home dose metoprolol.
[2024-09-29] MEDS ORDERED: ACETAMINOPHEN 325 MG TABLET PO ONE (14:00)
[2024-09-29] MEDS: ROSUVASTATIN 10 MG TAB PO SCH (20:34)
--- NOTE | 2024-09-29 21:51 | OP ---
Date of Procedure: 09/29/2024 Surgeon: Artur Monge Procedure Performed: Selective coronary angiogram. Indication For Procedure: [id number]. Complications: None. Estimated Blood Loss: Less than 50 cc. Access: Right radial, closed by TR band. Sedation Time: 20 minutes with 1 of Versed and 25 of fentanyl. Description Of Procedure: After risks, benefits, and alternatives were explained to the patient, the patient agreed to proceed with procedure and signed informed consent. The patient was brought back to the labor trainer, prepped and draped in sterile fashion. Time-out was performed. Sedation was admini stered. Next, right radial access was obtained using ultrasound-guided micropuncture technique. Tig er 4 catheter was advanced over J-wire to the aortic root. Selective angiogram was done using the sa me catheter. At the end of procedure, catheter was removed. The J-wire and sheath were removed. TR band was applied. Hemostasis achieved. The patient was moved back to recovery in stable condition. Findings: 1. Left main: Normal. 2. LAD: Proximal mild luminal irregularities with mid stent, mild diffuse ISR, then distal mild yehuda nal irregularities. 3. Left circumflex: Mild luminal irregularities. 4. RCA: Proximal 30% disease, followed by mild luminal irregularities with a mid 30% to 40% disease, then mild luminal irregularities. 5. RPDA: Mild luminal irregularities. Assessment And Plan: 1. Mild left anterior descending in-stent restenosis. 2. Mild proximal to mid right coronary artery disease. Plan is to continue medical management. BART/ROMEO Voice ID: [id number] Report ID: [id number]
[2024-09-30] MEDS: ACETAMINOPHEN 500 MG TAB PO PRN (00:02)
[2024-09-30] MEDS ORDERED: HOME MED 1 EA UNK (Cholecalciferol (Vitamin D3) [Vitamin D3] 2,000 UNIT Capsule) PO SCH (09:00)
[2024-09-30] MEDS ORDERED: HOME MED 1 EA UNK (Magnesium Oxide [Magnesium] 500 MG Capsule) PO SCH (09:00)
[2024-09-30 09:37] VITALS: O2SAT 95
[2024-09-30] MEDS: PANTOPRAZOLE 40MG TABLET PO SCH (09:39)
[2024-09-30 13:03] VITALS: BP 118/76; TEMP 97.1
--- NOTE | 2024-09-30 15:02 | P.DS ---
Admission Date: 09/29/24 Discharge Date: 09/30/24 Disposition: ROUTINE DISCHARGE Discharge Condition: FAIR Reason for Admission: Chest pain Brief History of Present Illness: 79-year-old female with a past medical history of CAD status post 1 stent, diabetes, hypothyroidism, hypercholesterolemia presented with chest pain that occurred with exertion, relieved with rest and intermittent. Patient evaluated in the ED, and noted to have elevated troponin, EKG did not show ischemic changes. Patient was hospitalized for ACS rule out. Hospital Course: Diagnosis NSTEMI Hypertension Diabetes Hypercholesterolemia Hypothyroidism CAD Patient admitted to the medical floor, troponin was elevated but trended flat. Patient with a significant history of coronary artery disease including cardiac stent several years ago. She was evaluated by cardiology Dr. Monge who performed cardiac catheterization and noted to have mild left anterior descending in-stent restenosis and mild proximal to mid right coronary artery disease. Medical management recommended by cardiology. Patient has been asymptomatic since admission, vitals are stable. Patient is deemed stable for discharge with DAPT Vital Signs/Physical Exam: Temp Pulse Resp BP Pulse Ox 97.1 F 73 14 118/76 99 09/30/24 12:00 09/30/24 12:00 09/30/24 12:00 09/30/24 12:00 09/30/24 12:00 General: Alert, In no apparent distress, Oriented x3 HEENT: Mucous membr. moist/pink Neck: Supple, JVD not distended Respiratory: Clear to auscultation bilaterally, Normal air movement Cardiovascular: No edema, No murmurs Gastrointestinal: Normal bowel sounds, Soft and benign, Non-distended, No tenderness Musculoskeletal: No swelling Integumentary: No rashes, No cyanosis Neurological: Normal strength at 5/5 x4 extr Laboratory Data at Discharge: WBC 6.10 thou/uL (4.3-10.9) 09/29/24 07:04 Hgb 12.7 g/dL (12.0-15.0) D 09/29/24 07:04 Hct 39.1 % (36.0-45.0) 09/29/24 07:04 Plt Count 204 thou/uL (152-406) 09/29/24 07:04 PT Cancelled 09/29/24 08:23 INR Cancelled 09/29/24 08:23 APTT 135.4 SECONDS (24.3-36.9) H* 09/29/24 07:04 Sodium 143 mEq/L (136-145) 09/29/24 07:04 Potassium 3.5 mEq/L (3.5-5.1) D 09/29/24 07:04 BUN 30 mg/dL (7-18) H 09/29/24 07:04 Creatinine 0.61 mg/dL (0.55-1.02) 09/29/24 07:04 Glucose 115 mg/dL (74-106) H 09/29/24 07:04 Magnesium 2.5 mg/dL (1.6-2.4) H 09/28/24 23:30 Total Bilirubin 0.5 mg/dL (0.2-1.0) 09/28/24 23:30 AST 30 U/L (15-37) 09/28/24 23:30 ALT 34 U/L (13-56) 09/28/24 23:30 Alkaline Phosphatase 68 U/L (45-117) 09/28/24 23:30 Triglycerides 125 mg/dL (<150) 09/29/24 07:04 Cholesterol 113 mg/dL (<200) 09/29/24 07:04 HDL Cholesterol 38 mg/dL (40-60) L 09/29/24 07:04 Cholesterol/HDL Ratio 2.97 09/29/24 07:04 Home Medications: Aspirin [Aspirin EC 81 MG] 81 mg PO DAILY 01/18/19 Cholecalciferol (Vitamin D3) [Vitamin D3] 2,000 unit PO DAILY 01/18/19 Clopidogrel Bisulfate [Plavix*] 75 mg PO DAILY 01/18/19 Empagliflozin [Jardiance] 25 mg PO EVERY 3RD DAY 01/18/19 Iron 27 mg PO DAILY 01/18/19 Levothyroxine [Synthroid*] 125 mcg PO [id number] 01/18/19 Magnesium Oxide [Magnesium] 500 mg PO DAILY 01/18/19 Metoprolol Succinate [Toprol Xl*] 25 mg PO BID 01/18/19 Multivitamin [Multivitamins] 1 each PO DAILY 01/18/19 Pantoprazole [Protonix Tab*] 40 mg PO DAILY 01/18/19 Repaglinide 2 mg PO TID 01/18/19 Rosuvastatin [Crestor*] 20 mg PO BEDTIME 01/18/19 Sitagliptin Phos/Metformin HCl [Janumet Xr 100-1,000 mg Tablet] 1 each PO DAILY 01/18/19 Tramadol HCl/Acetaminophen [Ultracet Tablet] 1 each PO Q4H PRN #30 tablet 01/19/19 Atorvastatin Calcium [Lipitor] 40 mg PO BEDTIME #30 tab 09/30/24 New Medications: Atorvastatin Calcium [Lipitor] 40 mg PO BEDTIME #30 tab Physician Discharge Instructions: PROBLEM: (list out Acute Problems for the Current visit) GOAL: Clear understanding of disease process INSTRUCTIONS: Diet: AHA Activity: Ad shakira Follow up with PCP or as directed. Diet: AHA Activity: Ad shakira Followup: Artur Monge MD [ACTIVE - CAN ADMIT] - 1-2 Weeks Tobi Roy MD [Primary Care Provider] - 1-2 Weeks Time spent managing pt's care (in minutes): 34
[2024-10-02] MEDS ORDERED: HOME MED 1 EA UNK (Empagliflozin [Jardiance] 25 MG Tablet) PO SCH (09:00)
--- NOTE | 2024-10-03 06:50 | ECHO ---
HEIGHT: 5 ft 7 in WEIGHT: 146 lb 0 oz DATE OF STUDY: 09/30/[address]: Humble Rausch MD 2-DIMENSIONAL: YES M.MODE: YES DOPPLER: YES COLOR FLOW: YES TDS: PORTABLE: YES DEFINITY: BUBBLE STUDY: DIAGNOSIS: NON ST ELEVATION MYOCARDIAL INFARCTION CARDIAC HISTORY: CATHERIZATION: YES SURGERY: NO PROSTHETIC VALVE: NO PACEMAKER: NO MEASUREMENTS (cm) DIASTOLIC (NORMALS) SYSTOLIC (NORMALS) IVSd 0.9 (0.6-1.2) LA Diam 3.0 (1.9-4.0) LVEF 55-60% LVIDd 3.9 (3.5-5.7) LVIDs 2.8 (2.0-3.5) %FS 28% LVPWd 1.0 (0.6-1.2) Ao Diam 2.5 (2.0-3.7) 2 DIMENSIONAL ASSESSMENT: RIGHT ATRIUM: NORMAL LEFT ATRIUM: NORMAL RIGHT VENTRICLE: NORMAL LEFT VENTRICLE: NORMAL TRICUSPID VALVE: MILD TRICUSPID REGURGITATION MITRAL VALVE: TRACE MITRAL REGURGITATION PULMONIC VALVE: MILD PULMONIC INSUFFICIENCY AORTIC VALVE: MILD AORTIC INSUFFICIENCY PERICARDIAL EFFUSION: NONE AORTIC ROOT: NORMAL LEFT VENTRICULAR WALL MOTION: NORMAL DOPPLER/COLOR FLOW: SEE BELOW COMMENTS: 1. NORMAL LEFT VENTRICULAR EJECTION FRACTION 55-60% 2. NORMAL WALL MOTION 3. GRADE I DIASTOLIC DYSFUNCTION 4. MILD PULMONIC INSUFFICIENCY TECHNOLOGIST: LATISHA PACE
--- NOTE | 2024-10-04 11:24 | EKG ---
Test Date: 2024-09-29 Test Time: 01:36:25 Avian Keeper: NISHA MEASUREMENT RESULTS: Intervals: Rate: 70 MT: 174 QRSD: 84 QT: 406 QTc: 438 [place]: P: 59 MT: 174 QRS: -22 T: 58 INTERPRETIVE STATEMENTS: Sinus rhythm with premature atrial complexes Anteroseptal infarct, age undetermined Abnormal ECG Compared to ECG 09/28/2024 23:05:53 Atrial premature complex(es) now present Sinus arrhythmia no longer present Left-axis deviation no longer present Myocardial infarct finding still present Electronically Signed On 10-04-24 11:07:38 CDT by Artur Monge
--- NOTE | 2024-10-04 11:25 | EKG ---
Test Date: 2024-09-28 Test Time: 23:05:53 Driver Supervisor: MEASUREMENT RESULTS: Intervals: Rate: 69 SD: 164 QRSD: 84 QT: 382 QTc: 409 [place]: P: 64 SD: 164 QRS: -34 T: 106 INTERPRETIVE STATEMENTS: Normal sinus rhythm with sinus arrhythmia Left axis deviation Anteroseptal infarct, age undetermined Abnormal ECG Compared to ECG 03/27/2020 10:24:04 Left-axis deviation now present Myocardial infarct finding still present Electronically Signed On 10-04-24 11:07:48 CDT by Artur Monge
== END 2024-09-30 13:30 | disposition home or self-care (01) | DRG 282 ==
LOC: ER 22:51 → ERHOLD 09-29 02:28 → 2ND 09-29 12:03
PROVIDERS: ADMIT Family Medicine; ATTEND Internal Medicine
PROC: 4A023N7 Measurement of Cardiac Sampling and Pressure, Left Heart, Percutaneous Approach (ICD-10-PCS; principal; 2024-09-29)
PROC: B2111ZZ Fluoroscopy of Multiple Coronary Arteries using Low Osmolar Contrast (ICD-10-PCS; 2024-09-29)
DX: T82.855A Stenosis of coronary artery stent, initial encounter (principal); I21.4 Non-ST elevation (NSTEMI) myocardial infarction; I10 Essential (primary) hypertension; E03.9 Hypothyroidism, unspecified; E78.00 Pure hypercholesterolemia, unspecified; E11.9 Type 2 diabetes mellitus without complications; I25.10 Atherosclerotic heart disease of native coronary artery without angina pectoris; I25.2 Old myocardial infarction; Z88.5 Allergy status to narcotic agent; Z95.5 Presence of coronary angioplasty implant and graft; Z79.84 Long term (current) use of oral hypoglycemic drugs; Z79.02 Long term (current) use of antithrombotics/antiplatelets; Z79.82 Long term (current) use of aspirin; Z28.310 Unvaccinated for COVID-19; Z79.899 Other long term (current) drug therapy; Z79.890 Hormone replacement therapy; Z90.710 Acquired absence of both cervix and uterus
CPT/HCPCS: 36415; 71045; 76937; 80048; 80061; 80076; 82947; 83735; 83880; 84439; 84443; 84484; 85025; 85610; 85730; 93005; 93306; 93454; 94760; 96365; 96366; 99152; 99153; 99285; C1893; J0461; J1644; J2003; J2250; J3010; J7040; Q9966

== ENCOUNTER 2025-05-24 18:04 | Emergency (ER) | payer OTHER ==
[2025-05-24] MEDS ORDERED: DIPHENHYDRAMINE 50 MG/ML VIAL ONE (20:17)
[2025-05-24] MEDS ORDERED: METOCLOPRAMIDE 10 MG/2mL INJ ONE (20:17)
[2025-05-24] MEDS ORDERED: FENTANYL CITR 100 MCG/2 ML ONE ×2 (20:18→21:17)
--- NOTE | 2025-05-24 20:31 | RAD REPORT ---
EXAM: CT CHEST, ABDOMEN AND PELVIS WITHOUT CONTRAST CLINICAL INDICATION: Female, 79 years old. [facility] MA[facility] FALL TECHNIQUE: CT chest, abdomen and pelvis was performed, without IV contrast, as per department protoco l. Axial, sagittal and coronal reconstructions were obtained. One or more of the following dose reduction techniques were used: Automated exposure control, adjustment of the mA and/or kV according to the patient size, and/or iterative reconstruction. Unless otherwise specified, incidental findings do not require dedicated imaging follow-up. COMPARISON: 03/27/2020 CT chest. 01/26/2022 CT abdomen and pelvis FINDINGS: The lack of intravenous contrast limits the sensitivity of this exam for evaluation of solid visceral organs, vascular structures, and retroperitoneum. Chest: LOWER NECK/CHEST WALL: Visualized thyroid gland and soft tissues are normal. LUNGS AND AIRWAYS: Airways are clear. No evidence of airspace or interstitial process. No nodules. PLEURA: No pleural effusion. No pneumothorax. Hemidiaphragms are normally positioned. MEDIASTINUM AND LYMPH NODES: No mediastinal mass or fluid collection. Normal size mediastinal, hilar, and axillary lymph nodes. THORACIC AORTA: Normal caliber and configuration. PULMONARY ARTERIES: Normal caliber. HEART: Unremarkable. Abdomen/Pelvis LIVER: Normal in size and contour. Lobulated inferior right lobe margin 2.9 x 2.9 cm cystic lesion.. GALLBLADDER/BILE DUCTS: Status post cholecystectomy. No biliary ductal dilatation. PANCREAS: No mass, ductal dilation, or hari-pancreatic fluid. SPLEEN: Normal size. No focal lesion. ADRENALS: Normal; no mass. KIDNEYS AND URETERS: Normal size and contour. Numerous stable bilateral renal cortical cystic lesions . Small peripheral/capsular bilateral hyperdense lesions largest measuring up to 1 cm, may suggest small hemorrhagic cysts, however are not well characterized. No hydronephrosis. GASTROINTESTINAL TRACT: Stomach is non-dilated. Small bowel has normal course and caliber. No colonic wall thickening or pericolonic inflammatory changes. PERITONEUM: No free fluid. LYMPH NODES: No lymphadenopathy. ABDOMINAL AORTA AND OTHER VESSELS: Normal caliber aorta and IVC. URINARY BLADDER: Normal contour. REPRODUCTIVE ORGANS: No pathologic process. MUSCULOSKELETAL: No acute or suspicious osseous abnormality. ADDITIONAL FINDINGS: None IMPRESSION: No acute or traumatic abnormalities in the chest, abdomen, or pelvis. Incidental findings including subcapsular inferior right liver lobe, and bilateral renal benign-appea ring cystic lesions.
--- NOTE | 2025-05-24 20:39 | RAD REPORT ---
EXAM: CT brain without contrast HISTORY: fall from bench;Headache COMPARISON: None TECHNIQUE: Multiple contiguous axial images were obtained and a CT of the brain without contrast. Sag ittal and coronal reformats were performed. FINDINGS: Right and left small hyperdense subdural parafalcine hemorrhages, largest along the left posterior fa lx measuring 4 mm in thickness. Small-volume left parietal convexity crescentic foci of subarachnoid hemorrhage. No evidence of hydrocephalus, parenchymal hemorrhage, or significant mass effect. Mild brain atrophy with mild periventricular and deep white matter chronic microvascular ischemic ch anges present. The calvarium is intact. The visualized paranasal sinuses and mastoid air cells are essentially clear . IMPRESSION: Parafalcine acute or subacute subdural hemorrhages, bilaterally, measuring up to 4 mm in thickness po steriorly. Small-volume left parietal convexity subarachnoid hemorrhage. EXAM: CT of the cervical spine without contrast HISTORY: fall from bench;Headache COMPARISON: None TECHNIQUE: Multiple contiguous axial images were obtained in a CT of the cervical spine without contr ast. Sagittal and coronal reformats were performed. FINDINGS: The vertebral bodies demonstrate normal height and alignment. No evidence of acute fracture or subluxation.. No degenerative changes are present. No prevertebral soft tissue swelling is seen. The posterior facets are well aligned. Normal alignment of the skull base with the cervical spine is seen. The lung apices are unremarkable. IMPRESSION: No evidence of acute osseous abnormality of the cervical spine. THIS REPORT CONTAINS FINDINGS THAT MAY BE CRITICAL TO PATIENT CARE. The findings were verbally commun icated via telephone to Oral A Page, PAC on 05/24/2025 8:34 PM.
[2025-05-24] MEDS ORDERED: LEVETIRACETAM 500 MG/5 ML VIAL IV ONE (20:53)
[2025-05-24] MEDS ORDERED: ONDANSETRON 4 MG/2 ML VIAL ONE (20:53)
[2025-05-24] MEDS ORDERED: NA CHLORIDE 0.9% 100 ML ONE (20:54)
--- NOTE | 2025-05-24 20:59 | EDPHYS ---
Physician Documentation [facility] Name: Sherice Ward Age: 79 yrs Sex: Female : 1945 Arrival Date: 05/24/2025 Time: 18:04 Bed 6 Private MD: ED Physician Macario Alva HPI: 05/24 18:30 This 79 yrs old Female presents to ER via Ambulatory with complaints of Fall Injury. cp 18:30 Details of fall: The patient fell from a height, about 2 feet high bench outside, and cp struck dirt, a grass-covered surface. 18:30 Onset: The symptoms/episode began/occurred just prior to arrival. Associated injuries: cp The patient sustained injury to the head, pain, neck injury, pain, back pain. Patient denies LOC. Takes aspirin. Historical: - Allergies: 18:31 Codeine; bp - PMHx: 18:31 Diabetes - NIDDM; High Cholesterol; Hypertension; Hypothyroidism; Myocardial infarction;bp - PSHx: 18:31 partial thyroidectomy (di); Total abdominal hysterectomy; bp - Immunization history:: Adult Immunizations up to date. - Infectious Disease History:: Denies. - Social history:: Smoking status: Patient denies any tobacco usage or history of. ROS: 18:35 Neck: Positive for pain with movement, pain at rest, tenderness, cp 18:35 Cardiovascular: Negative for chest pain, cp 18:35 Respiratory: Negative for cough, shortness of breath, wheezing, 18:35 Abdomen/GI: Negative for abdominal pain, vomiting, diarrhea, constipation, 18:35 Back: Positive for pain at rest, pain with movement, 18:35 Neuro: Positive for headache, Negative for altered mental status, loss of consciousness, weakness, 18:35 All other systems are negative, Exam: 18:40 Constitutional: The patient appears in no acute distress, alert, awake, cp non-diaphoretic, non-toxic, well developed, well nourished, uncomfortable, 18:40 Head/face: Noted is tenderness, that is moderate, of the left occipital area, left cp base of the skull, right occipital area and right base of the skull, 18:40 Eyes: Periorbital structures: appear normal, Pupils: equal, round, and reactive to light and accomodation, Extraocular movements: intact throughout, Conjunctiva: normal, no exudate, no injection, Sclera: no appreciated abnormality, Lids and lashes: appear normal, bilaterally, 18:40 ENT: External ear(s): are unremarkable, Nose: is normal, Mouth: Lips: moist, Oral mucosa: moist, Posterior pharynx: Airway: no evidence of obstruction, patent, 18:40 Neck: C-spine: vertebral tenderness, that is mild, appreciated at C4 and C5, ROM/movement: pain, that is mild, limited range of motion, is not appreciated, nuchal rigidity, is not appreciated, 18:40 Chest/axilla: Inspection: normal, Palpation: crepitus, is not appreciated, tenderness, is not appreciated, 18:40 Cardiovascular: Rate: normal, Rhythm: regular, 18:40 Respiratory: the patient does not display signs of respiratory distress, Respirations: normal, no use of accessory muscles, no retractions, labored breathing, is not present, Breath sounds: are clear throughout, no decreased breath sounds, no stridor, no wheezing, 18:40 Abdomen/GI: Inspection: abdomen appears normal, Palpation: abdomen is soft and non-tender, in all quadrants, 18:40 Back: pain, that is moderate, of the left scapular area and right scapular area, ROM is painful, with all movement, 18:40 Skin: no rash present. 18:40 Neuro: Orientation: to person, place \T\ time. Mentation: is normal, Cerebellar function: Romberg testing is negative, Motor: moves all fours, strength is normal, Sensation: is normal, Vital Signs: 18:30 BP 164 / 71; Pulse 98; Resp 16; Temp 98; Pulse Ox 98% ; bp 20:42 BP 153 / 95; Pulse 90; Resp 18; Pulse Ox 96% ; cp4 21:21 BP 114 / 84; Pulse 94; Resp 18; Pulse Ox 96% ; cp4 22:12 BP 116 / 87; Pulse 91; Resp 18; Pulse Ox 97% ; cp4 MDM: 18:26 Medical Screening Exam initiated cp 21:00 Data reviewed: vital signs, nurses notes, lab test result(s), radiologic studies, CT cp scan, and as a result, I will transfer patient as requested to [facility] trauma service. 21:00 Differential diagnosis: closed head injury, contusion, fracture, laceration, multiple cp trauma. I considered the following discharge prescriptions or medication management in the emergency department Medications were administered in the Emergency Department. See MAR. Test considered but Not performed: MRI: head/neck. Care significantly affected by the following chronic conditions: Diabetes, Hypertension. Counseling: I had a detailed discussion with the patient and/or guardian regarding the historical points, exam findings, and any diagnostic results supporting the discharge/admit diagnosis, radiology results, the need to transfer to another facility, for higher level of care, [facility] does not immediately have the required specialist. Response to treatment: the patient's symptoms have mildly improved after treatment. 21:05 ED course: consult with DR Rubalcava, accepting physician at [facility], will accept cp patient after discussion. 05/24 18:33 Order name: Basic Metabolic Panel; Complete Time: 21:54 05/24 21:54 Interpretation: Normal except: CL 110; GLUC 156; BUN 44; CRE 1.08; GFR 53; CA 10.7. 05/24 18:33 Order name: CBC with Diff; Complete Time: 21:54 05/24 21:54 Interpretation: Normal except: RBC 5.61; HGB 15.6; HCT 48.1; RDW 15.4. 05/24 18:33 Order name: Type And Screen; Complete Time: 22:12 05/24 22:12 Interpretation: Reviewed. 05/24 18:33 Order name: UA Rfx Polo Cult if indicated; Complete Time: 22:12 05/24 22:12 Interpretation: Normal except: UGLUC 4+ (Over). 05/24 19:19 Order name: Chest Abd Pelvis Wo Con; Complete Time: 20:35 EDMS 05/24 20:39 Interpretation: Report reviewed. 05/24 19:19 Order name: Head C Spine Mpr Wo Con; Complete Time: 20:39 EDMS 05/24 20:42 Interpretation: Report reviewed. 05/24 18:33 Order name: Labs collected and sent; Complete Time: 21:09 cp Administered Medications: 20:42 CANCELLED (Physician Discretion): fentanyl (pf)25 mcg IVP once cp 20:46 CANCELLED (Physician Discretion): [id number] mg IVP once; over 1 to 2 minutes cp 20:46 CANCELLED (Physician Discretion): ghnprygbkpthziy63.5 mg IVP once cp 21:13 Drug: Diltiazem IVP 10 mg IVP once; Over 2 minutes Route: IVP; Site: left antecubital; cp4 21:37 Follow up: Response: No adverse reaction; Blood pressure is lowered cp4 21:13 Drug: Ondansetron IVP 4 mg IVP once; over 2 minutes Route: IVP; Site: left antecubital; cp4 21:38 Follow up: Response: No adverse reaction; Nausea is decreased cp4 21:14 Drug: Keppra IV 1000 mg IV at calculated rate once Route: IV; Rate: calculated rate; cp4 Site: left antecubital; 21:37 Follow up: Response: No adverse reaction; IV Status: Completed infusion cp4 21:18 Drug: fentaNYL (PF) IVP 25 mcg IVP once Route: IVP; Site: left antecubital; cp4 21:37 Follow up: Response: No adverse reaction; Pain is decreased cp4 Disposition Summary: 05/24/25 20:58 Transfer Ordered Notes: Transfer Location: [facility] cp Reason: Higher level of care cp Condition: Stable cp Problem: new cp Symptoms: have improved cp Accepting Physician: DR Rubalcava(05/24/25 22:15) cp4 Diagnosis - Fall from chair, initial encounter cp - Left Parietal Subarachnoid Hemorrhage cp - Left and Right Subdural Parafalcine Hemorrhage cp - Hypertensive heart disease without heart failure cp Forms: - Medication Reconciliation Form cp - SBAR form cp Signatures: Dispatcher [employer] EDMS Oral Duong PA-C PAPedrito Duke cp, AC RN Raciel Maynard DO DO ms3 Charissa Guzman cp4 Corrections: (The following items were deleted from the chart) 18:34 18:34 BASIC METABOLIC PANEL+C.LAB.BRZ ordered. EDMS EDMS 18:34 18:34 CBC+H.LAB.BRZ ordered. EDMS EDMS 18:34 18:34 TYPE AND SCREEN+BB.LAB.BRZ ordered. EDMS EDMS 18:34 18:34 UA Rfx Polo Cult if indicated+U.LAB.BRZ ordered. EDMS EDMS 19:19 18:34 Head C Spine Cap Wo Con+CT.RAD.BRZ ordered. EDMS EDMS 20:42 18:33 fentaNYL (PF) IVP 25 mcg IVP once ordered. cp cp 20:46 19:43 metoCLOPramide IVP 10 mg IVP once; over 1 to 2 minutes ordered. cp cp 20:46 19:43 diphenhydrAMINE IVP 12.5 mg IVP once ordered. cp cp 20:47 18:54 I was immediately available on-site in the Emergency Department for consultation cp in the care of the patient. ms3 21:11 20:58 Doctor cp cp 22:15 21:11 DR Person cp cp4
--- NOTE | 2025-05-24 20:59 | ER ---
Nurse's Notes [facility] Name: Sherice Ward Age: 79 yrs Sex: Female : 1945 Arrival Date: 05/24/2025 Time: 18:04 Bed 6 Private MD: Diagnosis: Fall from chair, initial encounter;Left Parietal Subarachnoid Hemorrhage;Left and Right Subdural Parafalcine Hemorrhage;Hypertensive heart disease without heart failure Presentation: 05/24 18:30 Chief complaint: Patient states: MECHANICAL FALL OFF BENCH AT 1400 ONTO BACK, -LOC. bp Coronavirus screen: At this time, the client does not indicate any symptoms associated with coronavirus-19. Ebola Screen: No symptoms or risks identified at this time. Initial Sepsis Screen: Does the patient meet any 2 criteria? No. Patient's initial sepsis screen is negative. Does the patient have a suspected source of infection? No. Patient's initial sepsis screen is negative. Risk Assessment: Do you want to hurt yourself or someone else? Patient reports no desire to harm self or others. Onset of symptoms was May 24, 2025 at 14:00. 18:30 Method Of Arrival: Ambulatory bp 18:30 Acuity: SHELBY 3 bp Historical: - Allergies: 18:31 Codeine; bp - PMHx: 18:31 Diabetes - NIDDM; High Cholesterol; Hypertension; Hypothyroidism; Myocardial infarction;bp - PSHx: 18:31 partial thyroidectomy (di); Total abdominal hysterectomy; bp - Immunization history:: Adult Immunizations up to date. - Infectious Disease History:: Denies. - Social history:: Smoking status: Patient denies any tobacco usage or history of. Screenin:18 [facility] ED Fall Risk Assessment (Adult) History of falling in the last 3 months, cp4 including since admission Yes- single mechanical fall (1 pt) Confusion or Disorientation No (0 pts) Intoxicated or Sedated No (0 pts) Impaired Gait No (0 pts) Mobility Assist Device Used No (0 pt) Altered Elimination No (0 pt) Score/Fall Risk Level 0 - 2 = Low Risk Oriented to surroundings, Maintained a safe environment, Assessed \T\ reinforced patient's understanding of fall precautions, Hourly rounding (assess needs \T\ fall precautionary measures) done. Abuse screen: Denies threats or abuse. Denies injuries from another. Nutritional screening: No deficits noted. Tuberculosis screening: No symptoms or risk factors identified. Never had TB. Assessment: 21:18 General: Appears in no apparent distress. uncomfortable, Behavior is calm, cooperative, cp4 appropriate for age. Pain: Complains of pain in head Pain does not radiate. Pain currently is 6 out of 10 on a pain scale. Quality of pain is described as aching. Neuro: Level of Consciousness is awake, alert, obeys commands, Oriented to person, place, time, situation. Cardiovascular: Patient's skin is warm and dry. Respiratory: Airway is patent Respiratory effort is even, unlabored. GI: No signs and/or symptoms were reported involving the gastrointestinal system. : No signs and/or symptoms were reported regarding the genitourinary system. EENT: No signs and/or symptoms were reported regarding the EENT system. Derm: No signs and/or symptoms reported regarding the dermatologic system. Musculoskeletal: No signs and/or symptoms reported regarding the musculoskeletal system. 22:12 Reassessment: Patient appears in no apparent distress at this time. No changes from cp4 previously documented assessment. Patient and/or family updated on plan of care and expected duration. Pain level reassessed. Patient is alert, oriented x 3, equal unlabored respirations, skin warm/dry/pink. Vital Signs: 18:30 BP 164 / 71; Pulse 98; Resp 16; Temp 98; Pulse Ox 98% ; bp 20:42 BP 153 / 95; Pulse 90; Resp 18; Pulse Ox 96% ; cp4 21:21 BP 114 / 84; Pulse 94; Resp 18; Pulse Ox 96% ; cp4 22:12 BP 116 / 87; Pulse 91; Resp 18; Pulse Ox 97% ; cp4 ED Course: 18:21 Patient arrived in ED. im 18:21 Oral Duong PA-C is PHCP. cp 18:21 Raciel Youngblood DO is Attending Physician. cp 18:31 Triage completed. bp 18:31 Arm band placed on. bp 19:49 Chest Abd Pelvis Wo Con In Process Unspecified. EDMS 19:50 Head C Spine Mpr Wo Con In Process Unspecified. EDMS 20:46 Macario Alav MD is Attending Physician. cp 21:18 Placed in gown. Bed in low position. Side rails up X2. Adult w/ patient. Provided cp4 Education on: transfer. 21:18 No provider procedures requiring assistance completed. Initial lab(s) drawn, by ny, cp4 sent to lab. Inserted saline lock: 20 gauge in left antecubital area, using aseptic technique. Blood collected. Flushed with 10 mL NS. 21:22 Inserted saline lock: 22 gauge in right forearm, using aseptic technique. Flushed with oe 10 mL NS. 22:13 Patient transferred, IV remains in place. cp4 Administered Medications: 20:42 CANCELLED (Physician Discretion): fentanyl (pf)25 mcg IVP once cp 20:46 CANCELLED (Physician Discretion): [id number] mg IVP once; over 1 to 2 minutes cp 20:46 CANCELLED (Physician Discretion): ldlhyuipnvptupq08.5 mg IVP once cp 21:13 Drug: Diltiazem IVP 10 mg IVP once; Over 2 minutes Route: IVP; Site: left antecubital; cp4 21:37 Follow up: Response: No adverse reaction; Blood pressure is lowered cp4 21:13 Drug: Ondansetron IVP 4 mg IVP once; over 2 minutes Route: IVP; Site: left antecubital; cp4 21:38 Follow up: Response: No adverse reaction; Nausea is decreased cp4 21:14 Drug: Keppra IV 1000 mg IV at calculated rate once Route: IV; Rate: calculated rate; cp4 Site: left antecubital; 21:37 Follow up: Response: No adverse reaction; IV Status: Completed infusion cp4 21:18 Drug: fentaNYL (PF) IVP 25 mcg IVP once Route: IVP; Site: left antecubital; cp4 21:37 Follow up: Response: No adverse reaction; Pain is decreased cp4 Medication: 21:18 VIS not applicable for this client. cp4 Outcome: 20:58 ER care complete, transfer ordered by . cp 22:13 Transferred by ground EMS to [facility], Transfer form cp4 completed. X-rays sent w/ patient. 22:13 Condition: stable 22:13 Instructed on the need for transfer, 22:15 Patient left the ED. cp4 Signatures: Dispatcher [employer] EDCO Oral Duong PA-C PA-C cp Espinosa, Orlando oe Peltier, Brian, RN RN bp Evans, Charissa Seth cp4
[2025-05-24 21:15] LABS: Absolute Lymphocytes (CBC) 2.0 K/uL (0.7-4.9); Hematocrit 48.1 % (36.0-45.0); Hemoglobin 15.6 g/dL (12.0-15.0); MCH 27.8 pg (27.0-35.0); MCHC 32.4 g/dL (32.0-36.0); MCV 85.7 fL (80-100); MPV 10.0 fL (7.6-11.3); Nucleated RBC Absolute Count 0.0 (0-0); Nucleated Red Blood Cells % 0.0 % (0-0); RBC Red Blood Cell Count 5.61 M/uL (3.86-4.86); White Blood Count 7.60 thou/uL (4.3-10.9)
[2025-05-24 21:29] LABS: Anion Gap 7.9 mEq/L (5.0-15.0); BUN Blood Urea Nitrogen 44.0 mg/dL (7-18); Glucose Level 156.0 mg/dL (74-106); Potassium 3.9 mEq/L (3.5-5.1)
[2025-05-24 22:02] LABS: Urine Microscopic Reflex YN NO UMIC
[2025-05-24 22:39] VITALS: TEMP 98
[2025-05-24 22:51] VITALS: BP 116/87; O2SAT 97
== END 2025-05-24 22:15 | disposition short-term general hospital (02) ==
LOC: ER 18:04
DX: S06.6X0A Traumatic subarachnoid hemorrhage without loss of consciousness, initial encounter (principal); S06.5X0A Traumatic subdural hemorrhage without loss of consciousness, initial encounter; I11.9 Hypertensive heart disease without heart failure; W07.XXXA Fall from chair, initial encounter
CPT/HCPCS: 96365; 85025; 80048; 36415; 86900; 86850; 86901; 81003; 70450; 71250; 72125; 74176; 96375; 99285; J1953; J3010 ×2; J2405; J1200; J2765